=== PATIENT | female | born 1955 | race Caucasian/White ===

== ENCOUNTER 2020-10-08 21:31 | Inpatient (IN) | payer MEDICARE, SELFPAY ==
[2020-10-08] VITALS (12 sets, daily range): BP systolic 147–179; BP diastolic 85–98; PULSE 68–79; RESP 10–20; TEMP 35.9; O2SAT 96–100
--- NOTE | ~2020-10-08 | XR_ITS ---
EXAMINATION: XR hip RT min 2V DATE: 10/10/2020 10:22 INDICATION: Postoperative evaluation following bipolar type right hip arthroplasty.. TECHNIQUE: Anteroposterior and lateral views of the right hip were obtained. COMPARISON: 10/08/2020 FINDINGS: Interval resection of the fractured right femoral head neck and placement of a bipolar type right hip hemiarthroplasty which appears well seated in near anatomic alignment. Surgical clips and expected s ubcutaneous gas in the postoperative bed. No fractures identified. IMPRESSION: 1. Bipolar type right hip hemiarthroplasty, negative for postoperative purposes. Reviewed, dictated and finalized at location A. IMPRESSION: 1. Bipolar type right hip hemiarthroplasty, negative for postoperative purposes .
--- NOTE | ~2020-10-08 | XR_ITS ---
EXAMINATION: XR chest 1V DATE: 10/08/2020 22:18 INDICATION: Fall. TECHNIQUE: A single frontal view of the chest was obtained. COMPARISON: Chest 2 views 10/16/2014 FINDINGS: The chest demonstrates clear lungs without pneumonia, pleural effusion, or pneumothorax. Th e heart size is normal. There is an old fracture of distal left clavicle with nonunion. IMPRESSION: 1. No acute cardiopulmonary disease. Reviewed, dictated and finalized at location A.
--- NOTE | ~2020-10-08 | XR_ITS ---
EXAMINATION: XR hip RT 2V w AP pelvis DATE: 10/08/2020 22:18 INDICATION: Right hip injury. TECHNIQUE: An anteroposterior view of the pelvis and 2 views of right hip were obtained. COMPARISON: None. FINDINGS: There is a subcapital fracture of right femoral neck. The distal fracture fragment demonstr ates 16 mm shortening and external rotation. The hip joint spaces are well maintained. There is sever e lumbar spondylosis. [place] overlie the pelvis. IMPRESSION: 1. Subcapital fracture of right femoral neck. Reviewed, dictated and finalized at location A.
--- NOTE | 2020-10-08 22:48 | ECG_ITS ---
Measurements Intervals Lerna Rate: 86 P: 61 UT: 170 QRS: 71 QRSD: 98 T: 63 QT: 359 QTc: 430 Interpretive Statements SINUS RHYTHM INCOMPLETE RIGHT BUNDLE BRANCH BLOCK MINIMAL Q WAVES- INF/LAT LEADS PEAKED T WAVES- CONSIDER HYPERKALEMIA OR ISCHEMIA BASELINE ARTIFACT- I, II, III, AVR, AVL, AVF, V2-V6 ABNORMAL ECG Electronically Signed On 10-09-2020 6:35:03 CDT by Roberto Park D.O.
[2020-10-08] MEDS: MORPHINE SULFATE (*CRX) 4 MG/ML INJ IV PUSH (23:04)
[2020-10-08 23:09] LABS: Basophils Percent Auto 0.3 % (0.2-1.2); Eosinophils Percent Auto 0.3 % (0-4.4); Hematocrit 38.3 % (37.0-47.0); Hemoglobin 13.1 g/dL (12.0-15.0); Immature Granulocyte Absolute 0.05 K/mm3 (0.00-0.031); Immature Granulocyte Percent A 0.5 % (0-0.5); Lymphocytes Absolute Auto 0.79 K/mm3 (0.9-3.2); Lymphocytes Percent Auto 7.5 % (18.3-44.2); Mean Corpuscular HGB Conc 34.2 g/dl (32-36); Mean Corpuscular Hemoglobin 32.8 pg (26-34); Mean Corpuscular Volume 95.8 fl (80-100); Monocytes Absolute Auto 0.5 K/mm3 (0.1-0.6); Monocytes Percent Auto 4.5 % (2.6-8.5); Neutrophils Absolute Auto 9.1 K/mm3 (1.3-6.7); Neutrophils Percent Auto 86.9 % (45.5-73.1); Platelet Count Result 210 k/mm3 (150-375); Red Cell Distribution Width 11.8 % (11.5-14.5); White Blood Count 10.5 K/mm3 (4.5-10.0)
--- NOTE | 2020-10-08 23:14 | ED.LOWEXIN ---
HPI - Extremity Injury (Lower) General Chief Complaint: Extremity Injury, Lower Stated Complaint: skin tear and r hip pain Time Seen by Provider: 10/08/20 22:48 Source: patient, family, EMS and RN notes reviewed Mode of arrival: EMS Limitations: no limitations History of Present Illness HPI Narrative: Patient 65 years old white female came to the emergency room by ambulance from a bar because of a fall with right hip pain. Patient denies other injuries. Patient was trying to get out of the bar after drinking 7 beers, lost her balance and fell. No loss of consciousness, no other injuries. Patient denies any fever, chills, nausea, or vomiting Related Data Allergies Allergy/AdvReac Type Severity Reaction Status Date / Time ibuprofen Allergy Intermediate RASH Verified 09/13/17 10:58 SWELLING rofecoxib Allergy Unknown Verified 09/13/17 10:58 Review of Systems Review of Systems: CONSTITUTIONAL: Denies fever, chills, or sweats. EYES: Denies visual changes, redness, or discharge. ENT: Denies rhinorrhea, congestion, sore throat, or otalgia. CARDIOVASCULAR: Denies chest pain, palpitations, or edema. RESPIRATORY: Denies cough or dyspnea. GASTROINTESTINAL: Denies abdominal pain, nausea, vomiting, or diarrhea. GENITOURINARY: Denies dysuria or hematuria. SKIN: Denies rash or itching. MUSCULOSKELETAL: Denies back pain, joint pain, or myalgia. NEUROLOGIC: Denies headache, numbness, or weakness. PSYCHIATRIC: Denies anxiety or depression. Exam Narrative: General appearance: Well-developed, well-nourished Skin: Normal color Head: Normocephalic, nontraumatic Eyes: Clear conjunctiva ENT: Oropharynx normal, ears normal, nose normal Neck: Supple, nontender Chest and respiratory: Airway patent, no respiratory distress, no accessory muscle use Heart: Regular rate/rhythm Abdomen: Soft, nontender, no organomegaly, quiet bowel sounds Vascular: Normal peripheral pulses, normal capillary refill. Musculoskeletal: Severe diffuse tenderness right hip, deformity, Neurologic: Alert and oriented ?3, TELEPHONE STATION REPAIRER is normal as tested, no gross motor deficit Course Consultations Consultation #1: Dr. Torres Date: 10/08/20 Time: 23:17 Vital Signs Vital signs: Vital Signs Temperature 35.9 C L 10/08/20 21:33 Pulse Rate 70 10/08/20 21:33 Respiratory Rate 18 10/08/20 21:33 Blood Pressure 152/98 H 10/08/20 21:33 Pulse Oximetry 98 10/08/20 21:33 Temperature 35.9 C L 10/08/20 21:33 Pulse Rate 76 10/08/20 21:51 Respiratory Rate 20 10/08/20 21:51 Blood Pressure 152/98 H 10/08/20 21:33 Pulse Oximetry 100 10/08/20 21:51 MDM - Extremity Injury (Lower) MDM Narrative Medical decision making narrative: Patient presents with right hip pain after a fall. Work-up showed right subcapital fracture of the right femoral neck, Dr. Torres was consulted, labs, chest x-ray, EKG ordered for preop. Patient will be admitted to medical floor for possible hip replacement tomorrow morning. Differential Diagnosis Differential diagnosis: Likely fracture of femur and fracture of hip Lab Data Result diagrams: 10/08/20 22:56 10/08/20 22:56 Labs: Lab Results 10/08/20 10/08/20 10/08/20 Range/Units 22:56 22:56 22:56 WBC Pending RBC Pending Hgb Pending Hct Pending MCV Pending MCH Pending MCHC Pending RDW Pending Plt Count Pending MPV Pending Immature Gran % (Auto) Pending Neut % (Auto) Pending Lymph % (Auto) Pending [place] % (Auto) Pending Eos % (Auto) Pending Baso % (Auto) Pending Lymph # (Auto) Pending [place] # (Auto) Pending Eos # (Auto) Pending
[2020-10-08] MEDS: ONDANSETRON INJ 4 MG/2 ML VIAL IV PUSH (23:17)
[2020-10-08 23:19] LABS: Alanine Aminotransferase 50 U/L (4-35); Albumin Level 4.6 g/dL (3.5-5.1); Alkaline Phosphatase 87 U/L (38-126); Anion Gap 12 mmol/L (8-16); Aspartate Amino Transferase 54 U/L (14-36); Bilirubin,Total 0.4 mg/dL (0.2-1.3); Blood Urea Nitrogen 11 mg/dL (7-17); Calcium 9.3 mg/dL (8.4-10.2); Carbon Dioxide 26 mmol/L (22-30); Chloride 89 mmol/L (98-107); Estimated CRCL calculation 94 ml/min; Estimated Glomerular Filt Rate > 60; Glucose 103 mg/dL (65-110); INR 0.9; Prothrombin Time 11.8 Seconds (11.1-14.7); Sodium 127 mmol/L (137-145)
[2020-10-08 23:20] LABS: Partial Thromboplastin Time 29.3 SECONDS (22.3-36.8)
[2020-10-08 23:37] LABS: Ethanol 255 mg/dL (<10)
--- NOTE | 2020-10-08 23:41 | PM.IMHP ---
H&P: HPI History of Present Illness Date/Time: 10/08/20 23:41 Chief Complaint: fall and right hip fracture Narrative: Patient 65 years old white female came to the emergency room by ambulance from a bar because of a fall with right hip pain. she states she was drunk and she tripped and she fell down. Say hit her right hip and reports hurting in the area. Patient denies other injuries. There is No loss of consciousness, no other injuries. Patient denies any fever, chills, nausea, or vomiting. Evaluation was noted to have right hip fracture and is admitted for further evaluation and management. Orthopedic has been consulted from the ER Review of Systems Review of Systems: - CONSTITUTIONAL: Denies weight loss, fever and chills. - HEENT: Denies changes in vision and hearing - RESPIRATORY: Denies SOB and cough. - CV: Denies palpitations and CP. - GI: Denies abdominal pain, nausea, vomiting and diarrhea. - : Denies dysuria and urinary frequency. - MSK: Denies myalgia and reports right hip joint pain. - SKIN: Denies rash and pruritus. - NEUROLOGICAL: Denies headache and syncope. - PSYCHIATRIC: Denies recent changes in mood. Denies anxiety and depression. All systems reviewed & are unremarkable except as noted in HPI and below Constitutional: Constitutional: Reports fatigue and Reports weakness Neurologic: Reports weakness Endocrine: Endocrine: Reports fatigue PMFSH Social History Social History Smoking packs per day: 1 Smoking cigarettes per day: 20.0 Smoking status: Current every day smoker Tobacco type: cigarettes Alcohol intake: current Drinks per week: 49 Substance use: never Gender identity (if verbalized by the patient): Female Spiritual care concerns: No Meds Home Medications and Allergies Home Medications Medication Instructions Recorded Confirmed Type Unable to Obtain Home Medications 10/09/20 10/09/20 History Allergies Allergy/AdvReac Type Severity Reaction Status Date / Time ibuprofen Allergy Intermediate RASH Verified 09/13/17 10:58 SWELLING rofecoxib Allergy Unknown Verified 09/13/17 10:58 Vital Signs Vital Signs - 24 hr 10/08/20 21:33 10/08/20 21:42 10/08/20 21:46 Temperature 96.7 F L Pulse Rate 70 68 71 Respiratory Rate 18 17 14 Blood Pressure 152/98 H Pulse Oximetry 98 100 100 10/08/20 21:51 Temperature Pulse Rate 76 Respiratory Rate 20 Blood Pressure Pulse Oximetry 100 Exam Narrative: General appearance: Well-developed, well-nourished Skin: Normal color no rash Head: Normocephalic, nontraumatic Eyes: Clear conjunctiva bird ENT: Oropharynx normal, ears normal, nose normal Neck: Supple, nontender Chest and respiratory: Airway patent, no respiratory distress, no accessory muscle use Heart: Regular rate/rhythm Abdomen: Soft, nontender, no organomegaly, quiet bowel sounds Vascular: Normal peripheral pulses, normal capillary refill. Musculoskeletal: Severe diffuse tenderness right hip, deformity, Neurologic: Alert and oriented ?3, VISUAL DEVELOPER is normal as tested, no gross motor deficit H&P: Results Labs Labs: Short CBC 10/08/20 Range/Units 22:56 WBC 10.5 H (4.5-10.0) K/mm3 Hgb 13.1 (12.0-15.0) g/dL Hct 38.3 (37.0-47.0) % Plt Count 210 (150-375) k/mm3 BMP 10/08/20 22:56 Sodium 127 L Potassium 4.0 Chloride 89 L Carbon Dioxide 26 BUN 11 Creatinine 0.50 L Glucose 103 Calcium 9.3 Liver Function 10/08/20 Range/Units 22:56 Total Bilirubin 0.4 (0.2-1.3) mg/dL AST 54 H (14-36) U/L ALT 50 H (4-35) U/L Alkaline Phosphatase 87 (38-126)
[2020-10-09] VITALS (8 sets, daily range): BP systolic 115–150; BP diastolic 62–66; PULSE 68–82; RESP 10–18; TEMP 36.6–37; O2SAT 93–98; BMI 24.5
[2020-10-09] MEDS: SODIUM CHLORIDE 0.9% IV 1,000 ML 125 ML IV CONT (01:16)
[2020-10-09] MEDS: MORPHINE SULFATE (*CRX) 4 MG/ML INJ IV PUSH ×5 (01:18→23:13)
--- NOTE | 2020-10-09 01:36 | PC.NURSE ---
This patient, Maida López, was admitted to 2 Medical Room 260-01. Patient/family oriented to hospital policies and general routines including ID bracelet, bed and alarms, visiting hours, pain management, procedures, bathroom and other care routines, personal items, smoking policy, room service/diet, and visiting hours. Information on how to activate the Rapid Response Team has been discussed. Patient/Family are encouraged to report perceived risks to care and to ask questions if they do not understand what they are told or what they should do. Pt is NPO for surgery later today.
[2020-10-09 06:06] LABS: Basophils Percent Auto 0.2 % (0.2-1.2); Eosinophils Percent Auto 0.4 % (0-4.4); Hematocrit 33.6 % (37.0-47.0); Hemoglobin 12.1 g/dL (12.0-15.0); Immature Granulocyte Absolute 0.05 K/mm3 (0.00-0.031); Immature Granulocyte Percent A 0.6 % (0-0.5); Lymphocytes Absolute Auto 1.13 K/mm3 (0.9-3.2); Lymphocytes Percent Auto 13.7 % (18.3-44.2); Mean Corpuscular Hemoglobin 33.2 pg (26-34); Mean Corpuscular Volume 92.3 fl (80-100); Mean Platelet Volume 9.1 fl (7.4-10.4); Monocytes Absolute Auto 0.5 K/mm3 (0.1-0.6); Monocytes Percent Auto 6.2 % (2.6-8.5); Neutrophils Absolute Auto 6.5 K/mm3 (1.3-6.7); Neutrophils Percent Auto 78.9 % (45.5-73.1); Platelet Count Result 208 k/mm3 (150-375); Red Blood Count 3.64 M/mm3 (4.2-5.4); Red Cell Distribution Width 11.4 % (11.5-14.5); White Blood Count 8.2 K/mm3 (4.5-10.0)
[2020-10-09 06:08] LABS: Anion Gap 9 mmol/L (8-16); Blood Urea Nitrogen 8 mg/dL (7-17); Calcium 8.9 mg/dL (8.4-10.2); Carbon Dioxide 25 mmol/L (22-30); Chloride 95 mmol/L (98-107); Estimated CRCL calculation 94 ml/min; Estimated Glomerular Filt Rate > 60; Glucose 89 mg/dL (65-110); Potassium 3.9 mmol/L (3.4-5.0); Sodium 129 mmol/L (137-145)
--- NOTE | 2020-10-09 07:10 | PM.CNOR ---
Assessment and Plan Assessment and plan (1) Fracture of hip, right, closed: Qualifiers: Encounter type: initial encounter Qualified Code(s): S72.001A - Fracture of unspecified part of neck of right femur, initial encounter for closed fracture Code(s): S72.001A - Fracture of unspecified part of neck of right femur, initial encounter for closed fracture Status: Acute Assessment and Plan: New patient evaluation for chief complaint RT hip fx. History, physical exam and radiographs reviewed with the patient. Discussed the condition, nature, etiology and course of natural history with the patient. Treatment options including surgical and nonoperative treatment were reviewed. Risks and benefits of each as well as alternatives reviewed. The patient's questions were answered. Conservative treatment ice, DVT prophylaxis. Pt desires operative tx. Discussed nonoperative and operative treatment options with the patient. Risks and benefits of each as well as alternatives were reviewed. All of the patient's questions were answered. The risks of surgery reviewed including but not limited to: Neurovascular damage, wound complication, infection, blood clot, pulmonary embolus, stroke, myocardial infarction, and anesthetic risks up to and including . Continued pain and possible dysfunction were explained. Specific risks of the procedure including later recurrence of deformity. No guarantees were offered. If hardware used, discussed risk of failure/ breakage and possible need for removal. If complications occur, the patient understands the need for further treatment, possible further surgery. Patient verbalizes understanding and wishes to proceed. PLAN: RT hip hemiarthroplasty Hyponatremia with no improvement overnight. Plan surgery when medically cleared. (2) Hyponatremia: Code(s): E87.1 - Hypo-osmolality and hyponatremia Status: Acute History of Present Illness HPI Consult date: 10/09/20 Requesting physician: Devonte Mejia MD Chief complaint: Right Hip Fracture, Hyponatremia Narrative: 65 yo woman, EtOH, fell lest night on right hip. RT hip fx. Pain rt hip. No prior problems. Review of Systems Constitutional: Constitutional: Denies fever(s) Eyes: Eyes: Denies blurry vision ENT: Reports Normal hearing present Cardiovascular: Cardiovascular: Denies chest pain and Denies dyspnea Respiratory: Respiratory: Denies dyspnea and Denies wheezing Gastrointestinal: Gastrointestinal: Denies abdominal pain Genitourinary: Genitourinary: Denies urinary urgency Musculoskeletal: Musculoskeletal: Reports as per HPI and Denies numbness Integumentary/Breasts: Skin/Breast: Denies changing lesions and Denies sores Neurologic: Reports Normal hearing present, Denies behavioral changes, Denies confusion, Denies numbness and Denies convulsions Psychiatric: Psychiatric: Denies behavioral changes, Denies confusion and Denies hallucinations Endocrine: Endocrine: Denies heat intolerance Hematologic/Lymphatic: Hematologic/Lymphatic: Denies easy bleeding Allergic/Immunologic: Allergic/Immunologic: Denies wheezing PMFSH Social History Social History Smoking packs per day: 1 Smoking cigarettes per day: 20.0 Smoking status: Current every day smoker Tobacco type: cigarettes Alcohol intake: current Drinks per week: 49 Substance use: never Gender identity (if verbalized by the patient): Female Spiritual care concerns: No Meds Home Medications and Allergies Home Medications Medication Instructions Recorded Confirmed Type Unable to Obtain Home Medications 10/09/20 10/09/20 History Allergies Allergy/AdvReac Type Severity Reaction Status Date / Time ibuprofen Allergy Intermediate RASH Verified 09/13/17 10:58 SWELLING rofecoxib Allergy Unknown Verified 09/13/17 10:58 Vital Signs Vital Signs - 24 hr 10/08/20
--- NOTE | 2020-10-09 13:45 | PM.IMPN ---
Progress Note: A&P Assessment and Plan (1) Fracture of hip, right, closed: Qualifiers: Encounter type: initial encounter Qualified Code(s): S72.001A - Fracture of unspecified part of neck of right femur, initial encounter for closed fracture Code(s): S72.001A - Fracture of unspecified part of neck of right femur, initial encounter for closed fracture Status: Acute Assessment and Plan: - plan for right hip arthroplasty tomorrow with Dr. Torres - NPO midnight for surgery tomorrow - pain control: Morphine - Nausea and Zofran (2) Hyponatremia: Code(s): E87.1 - Hypo-osmolality and hyponatremia Status: Acute Assessment and Plan: -sodium 129 likely secondary to tea and toast syndrome with decreased p.o. salt intake and polydipsia. Also may be related to alcoholism, however patient states she eats all her meals and has no problems with alcoholism. -patient appears euvolemic hyponatremia. -fluid restriction sodium -continue IV fluids normal saline -patient otherwise is stable for surgery tomorrow. no chest pain or other medical history of concern (3) Alcoholism: Code(s): F10.20 - Alcohol dependence, uncomplicated Status: Acute Assessment and Plan: -will watch for withdrawals, CIWA protocol, patient drinks 6 beers daily Additional Plan Diet: Regular, NPO midnight for surgery tomorrow Code status: Full code Disposition: Pending surgery Social: updated bedside Time Spent With Patient Time with patient: 15 - 25 minutes Subjective Date/time seen: 10/09/20 13:45 Patient examined with bedside. labs are on low side sodium 129, creatinine 0.5. patient has been drinking plenty of water and decreased salt intake, likely polydipsia etiology of hyponatremia. plan for right hip arthroplasty. patient NPO midnight for surgery tomorrow. Of note patient had bone density scan which was consistent with osteoporosis completed last week. She is on vitamin-D and calcium supplements. Patient endorses right hip pain otherwise denies fevers, chills, nausea, vomiting, diarrhea, chest pain, abdominal pain. Review of Systems Review of Systems: All systems reviewed & are unremarkable except as noted in HPI and below Exam Narrative: - GENERAL: No acute distress. Well-nourished. Pleasant woman appears stated age - EYES: EOMI. Anicteric. - HENT: Moist mucous membranes. - LUNGS: Clear to auscultation bilaterally, no wheezing, rhonchi, or rales. - CARDIOVASCULAR: Regular rate and rhythm. No murmur. No JVD. - ABDOMEN: Soft, non-tender and non-distended. No palpable masses. - EXTREMITIES: No edema. Peripheral pulses 2+. right lower extremity tenderness with any movement, ice packs on right hip - NEUROLOGIC: No focal neurological deficits. CN II-XII grossly intact. - PSYCHIATRIC: Awake, Alert and oriented x 3. Appropriate mood and affect. - SKIN: No rashes or lesions. Warm. - LYMPH: No cervical lymphadenopathy. Objective Data Vital Signs Vital Signs: Vital Signs - 24 hr 10/08/20 21:33 10/08/20 21:42 10/08/20 21:46 Temperature 35.9 C L Pulse Rate 70 68 71 Respiratory Rate 18 17 14 Blood Pressure 152/98 H Pulse Oximetry 98 100 100 10/08/20 21:51 10/08/20 22:18 10/08/20 22:30 Temperature Pulse Rate 76 71 72 Respiratory Rate 20 11 L 13 Blood Pressure Pulse Oximetry 100 97 10/08/20 22:53 10/08/20 22:56 10/08/20 23:11 Temperature Pulse Rate 79 77 76 Respiratory Rate 19 13 10 L Blood Pressure 179/98 H Pulse Oximetry 97 98 10/08/20 23:15 10/08/20 23:16 10/08/20 23:45 Temperature Pulse Rate 75 79 78 Respiratory Rate 12 16 13 Blood Pressure 147/85 H Pulse Oximetry 98 96 10/09/20 00:06 10/09/20 00:15 10/09/20 00:16 Temperature Pulse Rate 80 77 77 Respiratory Rate 14 13 10 L Blood Pressure 125/64 Pulse Oximetry 94 10/09/20 00:33 10/09/20 02:04 10/09/20 06:00 Temperature 36.6 C 37.0 C Pulse Rate 74 68 7
[2020-10-09] MEDS: ONDANSETRON INJ 4 MG/2 ML VIAL IV PUSH (14:47)
[2020-10-09] MEDS: SODIUM CHLORIDE 0.9% IV 1,000 ML 100 ML IV CONT (18:35)
[2020-10-10] VITALS (16 sets, daily range): BP systolic 134–170; BP diastolic 52–80; PULSE 67–91; RESP 12–20; TEMP 36.2–38.1; O2SAT 90–100
[2020-10-10] MEDS: MORPHINE SULFATE (*CRX) 4 MG/ML INJ IV PUSH ×2 (01:57→05:16)
[2020-10-10] MEDS: SODIUM CHLORIDE 0.9% IV 1,000 ML 100 ML IV CONT (05:21)
--- NOTE | 2020-10-10 06:20 | PC.NURSE ---
TO OR PER BED, WITH PT
--- NOTE | 2020-10-10 06:39 | WPDHPUPDATE1 ---
History and Physical Update Update Date/Time: 10/10/20 06:39 History and Physical has been reviewed, including an updated exam of the patient. There are NO changes in the patient's condition. Risks, benefits, and alternatives have been discussed and questions answered. Patient agrees to proceed with procedure.
[2020-10-10] MEDS: LACTATED RINGERS 1,000 ML 30 ML IV CONT ×2 (06:51→09:59)
[2020-10-10] MEDS: TRANEXAMIC ACID 1,000MG/ISO100 1,000 MG/100 ML BAG 200 MG IVPB (06:52)
--- NOTE | 2020-10-10 06:58 | WPDANESEPPF ---
Anes - Initial Pre Proc Eval Procedure: Operation Date: 10/10/20 07:30 Proposed Procedures p Right Bipolar - Will Torres MD Date/Time: 10/10/20 06:58 Surgeon: Lion Reyes MD Pre Op Diagnosis: Right Hip Fracture, Hyponatremia Patient Data Age: 65 Gender: F Height: 1.73 m Weight: 73.2 kg Last Vital Signs Temp 38.1 C H 10/10/20 06:30 Pulse 80 10/10/20 06:30 Resp 20 10/10/20 06:30 BP 165/77 H 10/10/20 06:30 Pulse Ox 97 10/10/20 06:30 Allergies Allergy/AdvReac Type Severity Reaction Status Date / Time ibuprofen Allergy Intermediate RASH Verified 09/13/17 10:58 SWELLING latex Allergy Intermediate Rash Verified 10/10/20 06:57 rofecoxib Allergy Unknown Unknown Verified 10/10/20 06:57 Home Medications Medication Instructions Recorded Confirmed Type Unable to Obtain Home Medications 10/09/20 10/09/20 History Laboratory Tests 10/09/20 09:40 Blood Type A Positive Antibody Screen Negative Patient hx anesthesia problems: none Family hx anesthesia problems: none PMFSH Past Medical History Medical History (Updated 10/10/20 @ 06:58 by Holland Polo MD) Hyperlipidemia PVD (peripheral vascular disease) Surgical History Surgical History (Updated 10/10/20 @ 06:59 by Holland Polo MD) H/O carotid endarterectomy Social History Social History Smoking packs per day: 1 Smoking cigarettes per day: 20.0 Smoking status: Current every day smoker Tobacco type: cigarettes Alcohol intake: current Drinks per week: 49 Substance use: never Gender identity (if verbalized by the patient): Female Spiritual care concerns: No Anes - Eval Final PreProcedure Day of Procedure 10/10/20 06:58 Patient weight: normal Heart: regular rate and rhythm Lungs: clear to auscultation Airway: Mallampati scale class II Neurological: alert and oriented Last oral intake: >/= 8 hours ASA classification: III Emergent: no Anesthetic plan: proceed Anesthesia type and monitoring: general ETT and standard monitoring Informed Consent: The patient's anesthetic plan and its attendant risks and benefits were discussed with the patient/family/POA. Questions were solicited and answers provided to the satisfaction of the patient/family/POA.
--- NOTE | 2020-10-10 06:58 | SUR.PREOP ---
PT UNABLE TO TOLERATE SHAVE OF RT HIP DUE TO INTERMITTENT SPASMS.
--- NOTE | 2020-10-10 07:13 | SUR.PREOP ---
DR BARRON ORDERED STAT LABS
--- NOTE | 2020-10-10 07:35 | SUR.PREOP ---
0700; PT STATES SHE HAS A LATEX ALLERGY, CAUSES RASH. NOT IN ALLERGY LIST. ADDED TO ALLERGY LIST. HVAC TECHJOSEY RN NOTIFIED.
[2020-10-10 07:36] LABS: Basophils Percent Auto 0.2 % (0.2-1.2); Eosinophils Percent Auto 0.2 % (0-4.4); Hematocrit 35.1 % (37.0-47.0); Hemoglobin 12.3 g/dL (12.0-15.0); Immature Granulocyte Absolute 0.03 K/mm3 (0.00-0.031); Immature Granulocyte Percent A 0.3 % (0-0.5); Lymphocytes Absolute Auto 0.61 K/mm3 (0.9-3.2); Lymphocytes Percent Auto 6.3 % (18.3-44.2); Mean Corpuscular Hemoglobin 33.1 pg (26-34); Mean Corpuscular Volume 94.4 fl (80-100); Mean Platelet Volume 8.6 fl (7.4-10.4); Monocytes Absolute Auto 0.6 K/mm3 (0.1-0.6); Monocytes Percent Auto 6.5 % (2.6-8.5); Neutrophils Absolute Auto 8.4 K/mm3 (1.3-6.7); Neutrophils Percent Auto 86.5 % (45.5-73.1); Platelet Count Result 172 k/mm3 (150-375); Red Blood Count 3.72 M/mm3 (4.2-5.4); Red Cell Distribution Width 11.8 % (11.5-14.5); White Blood Count 9.7 K/mm3 (4.5-10.0)
[2020-10-10 07:49] LABS: Anion Gap 4 mmol/L (8-16); Blood Urea Nitrogen 8 mg/dL (7-17); Carbon Dioxide 28 mmol/L (22-30); Chloride 97 mmol/L (98-107); Estimated CRCL calculation 94 ml/min; Estimated Glomerular Filt Rate > 60; Glucose 103 mg/dL (65-110); Sodium 129 mmol/L (137-145)
[2020-10-10] MEDS: ceFAZolin 2 GM/D5W 50 ML 2 GM/50 ML BAG IVPB (07:51)
--- NOTE | 2020-10-10 07:53 | SUR.PREOP ---
0730; PT AND SPOUSE NOTIFIED OF DELAY FOR LATEX ALLERGY. 0745; REPORT GIVEN TO ANTONIO ZAMUDIO, PT HAS LOW GRADE TEMP. 100'S
[2020-10-10] MEDS: BUPIVACAINE/EPINEPHRINE 0.5% 30 ML VIAL INFILTRATE (08:22)
--- NOTE | 2020-10-10 09:30 | SUR.OPER ---
Patient stated she has Latex Allergy in pre op. Patient stated only with bandaids left on she gets rash. Denies any adverse reaction to latex gloves, elastic in underwear, bananas, kiwi, or avacado. Dr Torres aware. Patient arrived to pre op with latex adame in. No adverse reactions noted Dr Torres aware. As per Dr Torres leave adame in and no need to change to silicone. Scar Hernandez Rn. Pre op nurse Mara aware.
--- NOTE | 2020-10-10 09:40 | W.PM.PROC2 ---
Procedure Note - Detailed Date of Procedure 10/10/20 Pre-op Diagnosis Right Hip Fracture, Hyponatremia Post-op Diagnosis same Procedure Performed Right hip bipolar hemiarthroplasty Surgeon Will Torres MD Parliamentary Archivist 1st starch treating assistant Anesthesia general Indications 65-year-old woman who fell on the right side sustained a right femoral neck fracture with displacement. Patient desires operative treatment. Indicated for hemiarthroplasty. Description of Procedure WHAT WAS DONE: After informed consent was given, the operative extremity was marked in the preoperative holding area. The patient received intravenous antibiotics. Patient was brought to the operating room where they underwent a general anesthetic. Positioned in the lateral decubitus position nonop side down and the operative hip up. The right hip was then prepped and draped in the usual sterile surgical fashion using ChloraPrep skin solution. Time-out performed confirming the patient, side of the surgery, and the plan. A longitudinal incision was then made over the lateral side of the hip with the 10-blade knife. Hemostasis was controlled with electrocautery. Dissection was carried down through the fascia, which was incised in line with the skin incision. Subfascial retractor was placed. The abductor musculature was then elevated off the lateral side of the femur leaving a cuff of tissue for repair. The short abductor musculature was then elevated off the capsule and retention sutures were placed at the corner. The capsule was then incised in line with the femoral neck and T'd at the base. This allowed exposure of the fracture. The fracture hematoma was evacuated. Proximal femoral cutting guide was used to make a femoral neck cut at 2 cm above the lesser trochanter. This bone was removed with a rongeur. We then removed the head with a corkscrew. This was measured on the back table. Trialing of the acetabulum was done and a size 50 mm had excellent fit. The acetabulum was thoroughly irrigated and suctioned. Part of the fovea was removed with cautery. The rest of the acetabulum was inspected and noted to be with minimal degenerative changes. The proximal femur was then prepared. A posterior femoral retractor elevator was placed and a box cutting chisel was used to enter the femoral canal. We then used the canal finder. Broaching was then performed sequentially in 1 mm increments from a size 4 up to a size 11. This was noted to have excellent fit. We then trialed the hip. Excellent fit, stability with external and internal rotation at full extension and flexion of his hip and leg shuck were noted. The trial components were then removed. There was thorough irrigation with antibiotic solution of the proximal femur, acetabulum, and the wound. The femoral stem was then impacted into place. Good fit was noted. Trialing was once again performed and a - stem with a mm acetabular cup had excellent stability and range of motion. The trial components were removed and the 28 mm head acetabular cup were then impacted onto the femoral stem. The hip was then reduced once again, taken through full range of motion and noted to be stable with the leg extended in full external and internal rotation with the hip flexed to 90 degrees with internal and external rotation. There was equal leg length noted. Wound was thoroughly irrigated with antibiotic solution. The capsule was repaired with #1 Vicryl interrupted suture. The abductors were repaired back with #1 Vicryl interrupted suture. The fascia was repaired with 0 Vicryl running suture. Subcutaneous tissue was repaired in layers with 2-0 Vicryl interrupted suture. Skin repaired with marva. A sterile dressing was placed. A hip abduction pillow was applied. The patient was then returned supine, extubated after awakening from anesthesia, and taken to the recovery room in stable condition. All sponge and instrument counts were correct at t
--- NOTE | 2020-10-10 11:12 | PC.NURSE ---
Returned from OR per bed. Report received from Gabbi DAVILA .
[2020-10-10] MEDS: NICOTINE (*PBKC) 21 MG PATCH 1 PATCH TRANSDERM (13:18)
--- NOTE | 2020-10-10 14:05 | PM.IMPN ---
Progress Note: A&P Assessment and Plan (1) Alcoholism: Code(s): F10.20 - Alcohol dependence, uncomplicated Status: Acute Assessment and Plan: Continue CIWA, patient does not appear to be going through withdrawals (2) Fracture of hip, right, closed: Qualifiers: Encounter type: initial encounter Qualified Code(s): S72.001A - Fracture of unspecified part of neck of right femur, initial encounter for closed fracture Code(s): S72.001A - Fracture of unspecified part of neck of right femur, initial encounter for closed fracture Status: Acute Assessment and Plan: Right hip replacement with Dr. Torres today, Which went well Pain control: morphine, Pierpont, Tylenol. nerve block with bupivacaine Bowel regimen: Colace Nausea: Zofran Valium for muscle spasms (3) Hyponatremia: Code(s): E87.1 - Hypo-osmolality and hyponatremia Status: Acute Assessment and Plan: sodium about the same at 129, patient encouraged to increase her salt intake. She appears to be euvolemic. She is asymptomatic, patient follow-up PCP. (4) Nicotine dependence: Code(s): F17.200 - Nicotine dependence, unspecified, uncomplicated Status: Acute Assessment and Plan: history of smoking, nicotine dependence. nicotine patch prescribed Additional Plan diet: Regular DVT prophylaxis: fondaparinux GI prophylaxis: Pepcid Code status: Full code Disposition: pending PT OT evaluation Time Spent With Patient Time with patient: 15 - 25 minutes Subjective Date/time seen: 10/10/20 14:05 patient seen examined after right hip replacement Dr. Torres. she had no problems overnight and tolerated the procedure well. Patient will have physical therapy to help with disposition. Patient denies fever, chills, nausea, vomiting, diarrhea, chest pain, abdominal pain. She states her right hip is not having any pain now may be from nerve block. patient requesting nicotine patch which she can have. Review of Systems Review of Systems: All systems reviewed & are unremarkable except as noted in HPI and below Exam Narrative: - GENERAL: No acute distress. Well-nourished. Pleasant woman appears stated age - EYES: EOMI. Anicteric. - HENT: Moist mucous membranes. - LUNGS: Clear to auscultation bilaterally, no wheezing, rhonchi, or rales. - CARDIOVASCULAR: Regular rate and rhythm. No murmur. No JVD. - ABDOMEN: Soft, non-tender and non-distended. No palpable masses. - EXTREMITIES: No edema. Peripheral pulses 2+. Right lower extremity hip replacement with dressing, no bruising or erythema. - NEUROLOGIC: No focal neurological deficits. CN II-XII grossly intact. - PSYCHIATRIC: Awake, Alert and oriented x 3. Appropriate mood and affect. - SKIN: No rashes or lesions. Warm. - LYMPH: No cervical lymphadenopathy. Objective Data Vital Signs Vital Signs: Vital Signs - 24 hr 10/09/20 14:31 10/09/20 20:00 10/10/20 05:25 Temperature 36.7 C 36.8 C Pulse Rate 82 79 Respiratory Rate 14 16 Blood Pressure 150/66 H 144/65 H Pulse Oximetry 93 95 90 10/10/20 06:00 10/10/20 06:30 10/10/20 09:59 Temperature 36.9 C 38.1 C H 36.2 C L Pulse Rate 91 80 80 Respiratory Rate 18 20 20 Blood Pressure 158/74 H 165/77 H 134/70 Pulse Oximetry 93 97 100 10/10/20 10:10 10/10/20 10:25 10/10/20 10:40 Temperature Pulse Rate 76 77 75 Respiratory Rate 14 14 12 Blood Pressure 159/73 H 170/80 H 156/77 H Pulse Oximetry 98 92 95 10/10/20 10:55 10/10/20 11:05 10/10/20 11:23 Temperature 36.4 C L Pulse Rate 78 71 77 Respiratory Rate 20 12 16 Blood Pressure 146/79 H 146/79 H 163/79 H Pulse Oximetry 95 94 95 10/10/20 11:38 10/10/20 12:09 Temperature 36.4 C 36.3 C L Pulse Rate 81 67 Respiratory Rate 14 14 Blood Pressure 135/65 150/72 H Pulse Oximetry 97 98 Intake/Output Intake/Output: Intake & Output 10/07/20 10/08/20 10/09/20 10/10/20 23:59 23:59 23:59 23:59 Intake Total 1200 1250
[2020-10-10] MEDS: DOCUSATE SODIUM 100 MG CAPSULE PO (16:08)
[2020-10-10] MEDS: FAMOTIDINE 20 MG TABLET PO (21:10)
[2020-10-11] VITALS (8 sets, daily range): BP systolic 115–154; BP diastolic 58–74; PULSE 78–90; RESP 18–20; TEMP 36.6–38.6; O2SAT 93–98
[2020-10-11 05:44] LABS: Basophils Percent Auto 0.2 % (0.2-1.2); Eosinophils Percent Auto 0.2 % (0-4.4); Hematocrit 32.5 % (37.0-47.0); Hemoglobin 11.3 g/dL (12.0-15.0); Immature Granulocyte Absolute 0.05 K/mm3 (0.00-0.031); Immature Granulocyte Percent A 0.5 % (0-0.5); Lymphocytes Absolute Auto 0.64 K/mm3 (0.9-3.2); Lymphocytes Percent Auto 5.8 % (18.3-44.2); Mean Corpuscular HGB Conc 34.8 g/dl (32-36); Mean Corpuscular Hemoglobin 32.9 pg (26-34); Mean Corpuscular Volume 94.8 fl (80-100); Mean Platelet Volume 9.3 fl (7.4-10.4); Monocytes Percent Auto 9.4 % (2.6-8.5); Neutrophils Absolute Auto 9.3 K/mm3 (1.3-6.7); Neutrophils Percent Auto 83.9 % (45.5-73.1); Platelet Count Result 176 k/mm3 (150-375); Red Blood Count 3.43 M/mm3 (4.2-5.4); Red Cell Distribution Width 11.7 % (11.5-14.5); White Blood Count 11.1 K/mm3 (4.5-10.0)
[2020-10-11 05:55] LABS: Anion Gap 6 mmol/L (8-16); Blood Urea Nitrogen 7 mg/dL (7-17); Calcium 9.1 mg/dL (8.4-10.2); Carbon Dioxide 29 mmol/L (22-30); Chloride 88 mmol/L (98-107); Estimated CRCL calculation 94 ml/min; Estimated Glomerular Filt Rate > 60; Glucose 120 mg/dL (65-110); Potassium 3.8 mmol/L (3.4-5.0); Sodium 123 mmol/L (137-145)
--- NOTE | 2020-10-11 07:27 | PM.PNORT ---
Progress Note: A&P Assessment and Plan (1) Fracture of hip, right, closed: Qualifiers: Encounter type: subsequent encounter Fracture healing: with routine healing Qualified Code(s): S72.001D - Fracture of unspecified part of neck of right femur, subsequent encounter for closed fracture with routine healing Code(s): S72.001A - Fracture of unspecified part of neck of right femur, initial encounter for closed fracture Status: Acute Assessment and Plan: Postoperative day 1 right hip bipolar. Patient up to chair. Pain under control. DVT prophylaxis. PT/OT with weight-bearing as tolerated. Hyponatremia. Patient prefers home with home health if clears therapy. Subjective Subjective Date/Time Seen: 10/11/20 07:27 Post Op day: 1 Principal diagnosis: Right hip fracture Interval history: patient awake and alert. Up to chair. Mild complaints of right hip pain. Denies numbness or tingling. Exam Const: General: healthy appearing; No in distress or confusion Orientation/consciousness: patient oriented x3 and No confusion HENMT: Head: normal to inspection, normocephalic and atraumatic Eyes: Conjunctivae: conjunctivae normal Sclera: sclerae normal Resp: Effort & Inspection: normal respiratory effort and no audible wheezes Neuro: General: patient oriented x3 and No confusion Extrem: Right lower extremity: hip/thigh Details: other ( dressing in place. Mild swelling. Muscle soft.), lower leg Details: normal to inspection and other ( Negative Homans sign); no tenderness and foot Details: toes with normal ROM, vascular exam Details: dorsalis pedis pulse present and normal capillary refill, tendon exam Details: active flexion normal and active extension normal and motor-sensory exam Details: light-touch normal Location: in all toes Psych: Affect: normal affect Objective Data Vital Signs Vital Signs: Vital Signs - 24 hr 10/10/20 09:59 10/10/20 10:10 10/10/20 10:25 Temperature 97.2 F L Pulse Rate 80 76 77 Respiratory Rate 20 14 14 Blood Pressure 134/70 159/73 H 170/80 H Pulse Oximetry 100 98 92 10/10/20 10:40 10/10/20 10:55 10/10/20 11:05 Temperature Pulse Rate 75 78 71 Respiratory Rate 12 20 12 Blood Pressure 156/77 H 146/79 H 146/79 H Pulse Oximetry 95 95 94 10/10/20 11:23 10/10/20 11:38 10/10/20 12:09 Temperature 97.5 F L 97.6 F 97.4 F L Pulse Rate 77 81 67 Respiratory Rate 16 14 14 Blood Pressure 163/79 H 135/65 150/72 H Pulse Oximetry 95 97 98 10/10/20 13:21 10/10/20 17:20 10/10/20 20:00 Temperature 97.5 F L 98.7 F Pulse Rate 77 87 89 Respiratory Rate 16 20 Blood Pressure 142/65 H 152/52 H 151/72 H Pulse Oximetry 94 95 94 10/10/20 20:33 10/11/20 00:00 10/11/20 00:16 Temperature 99.1 F 98.9 F Pulse Rate 89 83 Respiratory Rate 20 20 Blood Pressure 151/72 H 148/63 H 148/63 H Pulse Oximetry 94 93 10/11/20 04:55 Temperature 98.6 F Pulse Rate 85 Respiratory Rate 18 Blood Pressure 146/58 H Pulse Oximetry 95 Intake/Output Intake/Output: Intake & Output 10/08/20 10/09/20 10/10/20 10/11/20 23:59 23:59 23:59 23:59 Intake Total 1200 2460 240 Output Total 1575 2250 400 Balance -375 210 -160 Meds/Results Medications: Active Medications Generic Name Dose Route Start Last Admin Trade Name Freq PRN Reason Stop Dose Admin Acetaminophen 650 mg 10/10/20 11:10 Acetaminophen 325 Mg Tablet PO Q6H PRN Mild Pain (1-3) or Fever Hydrocodone Bitart/Acetaminophen 1 tab 10/10/20 11:10 Hydrocodone/Acetaminophen (*Crx) 5-325 Mg Tablet PO Q3H PRN Pain Rated 4-6 Al Hydrox/Mg Hydrox/Simethicone 30 ml 10/10/20 11:10 Mag Hydrox/Al Hydrox/Simeth 30 Ml Udc PO Q6H PRN Indigestion Diazepam 5 mg 10/10/20 11:10 Diazepam (*Crx) 5 Mg Tablet PO Q8H PRN Muscle Spasm Docusate Sodium 100 mg 10/10/20 17:00 10/10/20 16:08 Docusate Sodium 100 Mg Capsule PO 100 mg BID [facility] Administrati
[2020-10-11] MEDS: FAMOTIDINE 20 MG TABLET PO ×2 (07:51→21:08)
[2020-10-11] MEDS: DOCUSATE SODIUM 100 MG CAPSULE PO ×2 (07:51→16:50)
[2020-10-11] MEDS: FONDAPARINUX SODIUM 2.5 MG/0.5 ML SYRINGE SUB-Q (07:52)
[2020-10-11] MEDS: NICOTINE (*PBKC) 21 MG PATCH 1 PATCH TRANSDERM (07:52)
[2020-10-11] MEDS: ACETAMINOPHEN 325 MG TABLET 650 MG PO (09:23)
--- NOTE | 2020-10-11 09:50 | PM.IMPN ---
Progress Note: A&P Assessment and Plan (1) Hyponatremia: Code(s): E87.1 - Hypo-osmolality and hyponatremia Status: Acute Assessment and Plan: sodium dropped to 123, likely polydipsia with p.o. intake of 1800 cc, adding fluid restriction. Does not produce symptomatic. (2) Nicotine dependence: Code(s): F17.200 - Nicotine dependence, unspecified, uncomplicated Status: Acute Assessment and Plan: nicotine patch as needed. chronic smoker (3) Alcoholism: Code(s): F10.20 - Alcohol dependence, uncomplicated Status: Acute Assessment and Plan: CIWA has been low (4) Fracture of hip, right, closed: Qualifiers: Encounter type: subsequent encounter Fracture healing: with routine healing Qualified Code(s): S72.001D - Fracture of unspecified part of neck of right femur, subsequent encounter for closed fracture with routine healing Code(s): S72.001A - Fracture of unspecified part of neck of right femur, initial encounter for closed fracture Status: Acute Assessment and Plan: postop day 1. Right hip replacement Dr. Torres pain control, DVT prophylaxis, antibiotics as per orthopedic surgeon Additional Plan diet: Regular with fluid restriction 1200cc DVT prophylaxis: fondaparinux GI prophylaxis: Pepcid Code status: Full code Disposition: pending PT OT evaluation Time Spent With Patient Time with patient: 25 - 35 minutes Subjective Date/time seen: 10/11/20 09:50 Patient examined she feels good with no problems no complaints. Patient is status post right hip replacement by Dr. Torres. plan for PT evaluation today. Her sodium has dropped to 123 but she is asymptomatic. It appears her fluid intake was 1800 mL, I will add a fluid restriction 1200cc. Etiology of her hyponatremia likely polydipsia. Patient denies fever, chills, nausea, vomiting, diarrhea, chest pain, abdominal pain. Review of Systems Review of Systems: All systems reviewed & are unremarkable except as noted in HPI and below Exam Narrative: - GENERAL: No acute distress. Well-nourished. sitting in chair comfortably - EYES: EOMI. Anicteric. - HENT: Moist mucous membranes. - LUNGS: Clear to auscultation bilaterally, no wheezing, rhonchi, or rales. - CARDIOVASCULAR: Regular rate and rhythm. No murmur. No JVD. - ABDOMEN: Soft, non-tender and non-distended. No palpable masses. - EXTREMITIES: No edema. Peripheral pulses 2+. Right lower extremity hip replacement with dressing, no bruising or erythema. - NEUROLOGIC: No focal neurological deficits. CN II-XII grossly intact. - PSYCHIATRIC: Awake, Alert and oriented x 3. Appropriate mood and affect. - SKIN: No rashes or lesions. Warm. - LYMPH: No cervical lymphadenopathy. Objective Data Vital Signs Vital Signs: Vital Signs - 24 hr 10/10/20 09:59 10/10/20 10:10 10/10/20 10:25 Temperature 36.2 C L Pulse Rate 80 76 77 Respiratory Rate 20 14 14 Blood Pressure 134/70 159/73 H 170/80 H Pulse Oximetry 100 98 92 10/10/20 10:40 10/10/20 10:55 10/10/20 11:05 Temperature Pulse Rate 75 78 71 Respiratory Rate 12 20 12 Blood Pressure 156/77 H 146/79 H 146/79 H Pulse Oximetry 95 95 94 10/10/20 11:23 10/10/20 11:38 10/10/20 12:09 Temperature 36.4 C L 36.4 C 36.3 C L Pulse Rate 77 81 67 Respiratory Rate 16 14 14 Blood Pressure 163/79 H 135/65 150/72 H Pulse Oximetry 95 97 98 10/10/20 13:21 10/10/20 17:20 10/10/20 20:00 Temperature 36.4 C L 37.1 C Pulse Rate 77 87 89 Respiratory Rate 16 20 Blood Pressure 142/65 H 152/52 H 151/72 H Pulse Oximetry 94 95 94 10/10/20 20:33 10/11/20 00:00 10/11/20 00:16 Temperature 37.3 C 37.2 C Pulse Rate 89 83 Respiratory Rate 20 20 Blood Pressure 151/72 H 148/63 H 148/63 H Pulse Oximetry 94 93 10/11/20 04:55 10/11/20 08:55 10/11/20 09:23 Temperature 37.0 C 38.6 C H 38.3 C H Pulse Rate 85 78 Respiratory Rate 18 18 Blood Pressure 146/58 H 136/74 Pulse Oximetry
[2020-10-11] MEDS: HYDROcodone/acetaminophen (*CRX) 5-325 MG TABLET 1 TAB PO (11:03)
[2020-10-11] MEDS: MAG HYDROX/AL HYDROX/SIMETH 30 ML UDC PO (23:59)
[2020-10-12] VITALS: BP 154/71
[2020-10-12] MEDS: HYDROcodone/acetaminophen (*CRX) 5-325 MG TABLET 1 TAB PO (02:49)
[2020-10-12 04:00] VITALS: BP 125/75
[2020-10-12 05:41] VITALS: BP 125/75; PULSE 83; RESP 20; TEMP 36.4; O2SAT 95
[2020-10-12] MEDS: FONDAPARINUX SODIUM 2.5 MG/0.5 ML SYRINGE SUB-Q (09:09)
[2020-10-12] MEDS: DOCUSATE SODIUM 100 MG CAPSULE PO (09:12)
[2020-10-12] MEDS: FAMOTIDINE 20 MG TABLET PO (09:12)
[2020-10-12] MEDS: NICOTINE (*PBKC) 21 MG PATCH 1 PATCH TRANSDERM (09:12)
--- NOTE | 2020-10-12 09:32 | PM.PNORT ---
Progress Note: A&P Assessment and Plan (1) Fracture of hip, right, closed: Qualifiers: Encounter type: subsequent encounter Fracture healing: with routine healing Qualified Code(s): S72.001D - Fracture of unspecified part of neck of right femur, subsequent encounter for closed fracture with routine healing Code(s): S72.001A - Fracture of unspecified part of neck of right femur, initial encounter for closed fracture Status: Acute Assessment and Plan: POD #2: Right Hip Bipolar. Continue PT/OT. WBAT. Walker. FALL RISK. DVT prophylaxis. Transition to oral aspirin upon discharge. Hyponatremia. Defer to medicine team. Mepitel dressing in place. Change prior to discharge. Send with one additional dressing to be changed in 5 days by home health RN. Pain control. Ice. Dispo: Home with Home Health pending medical clearance. Subjective Subjective Date/Time Seen: 10/12/20 09:32 POD #2 No new complaints. Pain well controlled. Hopeful for discharge home today. Review of Systems Review of Systems: All systems reviewed & are unremarkable except as noted in HPI and below Exam Const: General: healthy appearing; No in distress or confusion Orientation/consciousness: patient oriented x3 and No confusion HENMT: Head: normal to inspection, normocephalic and atraumatic Eyes: Conjunctivae: conjunctivae normal Sclera: sclerae normal Resp: Effort & Inspection: normal respiratory effort and no audible wheezes Neuro: General: patient oriented x3 and No confusion Extrem: Right lower extremity: hip/thigh Details: other ( dressing in place. Mild swelling. Muscle soft.), lower leg Details: normal to inspection and other ( Negative Homans sign); no tenderness and foot Details: toes with normal ROM, vascular exam Details: dorsalis pedis pulse present and normal capillary refill, tendon exam Details: active flexion normal and active extension normal and motor-sensory exam Details: light-touch normal Location: in all toes Psych: Affect: normal affect Objective Data Vital Signs Vital Signs: Vital Signs - 24 hr 10/11/20 12:55 10/11/20 18:00 10/11/20 21:47 Temperature 36.6 C 37.6 C H 36.9 C Pulse Rate 90 90 88 Respiratory Rate 18 18 18 Blood Pressure 150/67 H 115/71 154/71 H Pulse Oximetry 93 96 98 10/12/20 00:00 10/12/20 04:00 10/12/20 05:41 Temperature 36.4 C L Pulse Rate 83 Respiratory Rate 20 Blood Pressure 154/71 H 125/75 125/75 Pulse Oximetry 95 Intake/Output Intake/Output: Intake & Output 10/09/20 10/10/20 10/11/20 10/12/20 23:59 23:59 23:59 23:59 Intake Total 1200 2460 1010 240 Output Total 1575 2250 1550 Balance -375 210 -540 240 Meds/Results Medications: Active Medications Generic Name Dose Route Start Last Admin Trade Name Freq PRN Reason Stop Dose Admin Acetaminophen 650 mg 10/10/20 11:10 10/11/20 09:23 Acetaminophen 325 Mg Tablet PO 650 mg Q6H PRN Administration Mild Pain (1-3) or Fever Hydrocodone Bitart/Acetaminophen 1 tab 10/10/20 11:10 10/12/20 02:49 Hydrocodone/Acetaminophen (*Crx) 5-325 Mg Tablet PO 1 tab Q3H PRN Administration Pain Rated 4-6 Al Hydrox/Mg Hydrox/Simethicone 30 ml 10/10/20 11:10 10/11/20 23:59 Mag Hydrox/Al Hydrox/Simeth 30 Ml Udc PO 30 ml Q6H PRN Administration Indigestion Diazepam 5 mg 10/10/20 11:10 Diazepam (*Crx) 5 Mg Tablet PO Q8H PRN Muscle Spasm Docusate Sodium 100 mg 10/10/20 17:00 10/12/20 09:12 Docusate Sodium 100 Mg Capsule PO 100 mg BID LILI Administration Famotidine 20 mg 10/10/20 21:00 10/12/20 09:12 Famotidine 20 Mg Tablet PO 20 mg Q12HR LILI Administration Fondaparinux 2.5 mg 10/11/20 09:00 10/12/20 09:09 Fondaparinux Sodium 2.5 Mg/0.5 Ml Syringe SUB-Q 2.5 mg DAILY LILI Administration Magnesium Hydroxide 30 ml 10/10/20 11:10 Magnesium Hydroxide Susp 30 Ml Udc PO BID PRN Constipation Morphine Loaiza
--- NOTE | 2020-10-12 11:22 | PM.DS ---
DS: Admitting Diagnosis Admitting Diagnosis closed fracture of right hip DS: Discharge Diagnosis Discharge Diagnosis (1) Fracture of hip, right, closed: Qualifiers: Encounter type: subsequent encounter Fracture healing: with routine healing Qualified Code(s): S72.001D - Fracture of unspecified part of neck of right femur, subsequent encounter for closed fracture with routine healing Code(s): S72.001A - Fracture of unspecified part of neck of right femur, initial encounter for closed fracture Status: Acute Assessment and Plan: status post right hip replacement by Dr. Torres. surgery went well without complication. patient discharged with aspirin for DVT prophylaxis and lortab pain control (2) Alcoholism: Code(s): F10.20 - Alcohol dependence, uncomplicated Status: Acute Assessment and Plan: Cessation discussed, alcoholism resources provided (3) Hyponatremia: Code(s): E87.1 - Hypo-osmolality and hyponatremia Status: Acute Assessment and Plan: hypernatremia likely secondary to have polydipsia and alcoholism, explained to patient to limit fluid intake to 15 her cc per day (4) Nicotine dependence: Qualifiers: Nicotine product type: cigarettes Code(s): F17.200 - Nicotine dependence, unspecified, uncomplicated Status: Acute Assessment and Plan: patient's daily smoker, educated about smoking cessation DS: Summary Hospital Course Reason for hospitalization: right hip fracture Hospital Course: Patient is a 65-year-old female with past medical history of alcoholism who presents to ED with complaints of right hip pain after falling at a bar. She is found to have a right subcapital fracture of right femoral neck. she underwent surgery on 10/10/[address]HA [address] Torres. surgery went well without complication. patient will be discharged home with home health for continued physical therapy. Information was given to patient for alcoholism. Patient's sodium was low likely secondary to malnutrition, polydipsia, alcoholism. I educated patient on having a well-balanced diet and to limit fluid intake to 1500 cc per day. Patient will follow-up with PCP in 1 week and Orthopedic 4 weeks. she will have dressing changes 5 days by home health nurse. She is to be weight-bearing as tolerated. She has had precautions for her PT at home without home health. she will have home health nurse remove marva on 10/25/20. she is continue aspirin for DVT prophylaxis as per orthopedic surgeon. She will be sent home with some pain control with Lortab. patient's vitals stable, labs stable, patient is stable for discharge. Patient understands and agrees with plan. Time spent discussing smoking cessation with patient: 3 to 10 minutes Status at Discharge Cognitive/behavioral status at discharge: at baseline Functional status at discharge: uses cane/walker Overall status at discharge: patient is back to baseline Time Spent with Patient Time attestation: Total time spent providing and/or coordinating discharge services:35 Time spent: Greater than 30 minutes Exam Narrative: - GENERAL: No acute distress. Well-nourished. sitting in chair comfortably - EYES: EOMI. Anicteric. - HENT: Moist mucous membranes. - LUNGS: chronic wheezing on right lung, otherwise stable. Patient is breathing comfortably on room air. - CARDIOVASCULAR: Regular rate and rhythm. No murmur. No JVD. - ABDOMEN: Soft, non-tender and non-distended. No palpable masses. - EXTREMITIES: No edema. Peripheral pulses 2+. Right lower extremity hip replacement with dressing, no bruising or erythema. - NEUROLOGIC: No focal neurological deficits. CN II-XII grossly intact. - PSYCHIATRIC: Awake, Alert and oriented x 3. Appropriate mood and affect. - SKIN: No rashes or lesions. Warm. - LYMPH: No cervical lymphadenopathy. Discharge Plan Discharge Attending physician on discharge: Kelsy Jeffries
[2020-10-12] MEDS: diazePAM (*CRX) 5 MG TABLET PO (11:26)
== END 2020-10-12 11:47 | disposition home health service (06) | DRG 522 ==
LOC: ANHED 23:22 → ANH2MED 10-09 01:17
PROVIDERS: Orthopaedic Surgery; Admitting Provider Internal Medicine; Emergency Provider Emergency Medicine; Visit Provider Student in an Organized Health Care Education/Training Program
PROC: 0SRR0JA Replacement of Right Hip Joint, Femoral Surface with Synthetic Substitute, Uncemented, Open Approach (ICD-10-PCS; CPT 27125; principal; 2020-10-10 07:30)
DX: S72.011A Unspecified intracapsular fracture of right femur, initial encounter for closed fracture (principal); E87.1 Hypo-osmolality and hyponatremia; W01.0XXA Fall on same level from slipping, tripping and stumbling without subsequent striking against object, initial encounter; F17.210 Nicotine dependence, cigarettes, uncomplicated; F10.20 Alcohol dependence, uncomplicated; Y90.2 Blood alcohol level of 40-59 mg/100 ml; E78.5 Hyperlipidemia, unspecified; I73.9 Peripheral vascular disease, unspecified
CPT/HCPCS: 36415; 51702; 71045; 73502; 80048; 80053; 80307; 85025; 85610; 85730; 86850; 86900; 86901; 93005; 96374; 96375; 97110; 97116; 97161; 97165; 97530; 97535; 99285; A9270; C1713; C1776; J0131; J0171; J0690; J1100; J1652; J2250; J2270; J2405; J2704; J2710; J3010; J7030; J7120

== ENCOUNTER 2020-11-05 08:46 | Outpatient (RCR) | payer MEDICARE, SELFPAY ==
--- NOTE | 2020-11-05 09:57 | PTOPEVAL ---
Thank you for referring Maida López to [facility].? The patient is scheduled to be seen for therapy? ____x/week for ___ weeks. Please review, sign, date and return this plan of care DESMOND. I agree with and certify that the following plan of care is medically necessary. Referring Physician Date Admitting Provider: Attending Provider: Will Torres MD Referring Provider: *PT Outpatient Evaluation Start: 11/05/20 08:50 Freq: Status: Active Protocol: Document 11/05/20 08:50 ACR (Rec: 11/05/20 09:57 ACR [id number]) Therapy Assessment Status Assessment Status Assessment Status Evaluation Outpatient Past Medical History Neurological History Hx Cerebrovascular Accident (CVA) Yes Cardiovascular History Hx Hypercholesterolemia Yes Respiratory History Hx Respiratory Disorders No Significant History Gastrointestinal History Hx Gastrointestinal Disorders No Significant History Genitourinary History Hx Genitourinary Disorders No Significant History Musculoskeletal History Hx Fractures Yes: Rt hip and both feet Hematological History Hx Hematological Disorders No Significant History Endocrine History Hx Endocrine Disorders No Significant History HEENT History Hx Sinus Problems Yes Integumentary History Hx Skin Disorders No Significant History Reproductive History Hx Hysterectomy Yes Psychosocial History Hx Anxiety Yes Hx Depression Yes Pain History History of Any Previous or Ongoing No Significant History Instance of Pain Anesthesia History Hx Anesthesia Reactions No Significant History Evaluation Information Problem Diagnosis R TABATHA Onset 10/10/20 Subjective Information Patient reports that she had a Query Text:As Reported By Patient/ posterior hip replacement on Family 10/10/20 due to a fall. She states that she has had 3 falls in the past year. Patient states she had HH therapy 2-3 times a week and is now here for outpatient. Patient states that she is pretty painful throughout the thigh. If the patient stands or walks for a period of time she is pretty fatigued. Patient states that she has no problem with stairs and getting in and out of the car. Patient states she is driving and there is no difficulty.
== END 2020-11-26 23:59 | disposition home or self-care (01) ==
LOC: CHSPT 08:46
PROVIDERS: Visit Provider Orthopaedic Surgery
DX: Z96.641 Presence of right artificial hip joint (principal)
CPT/HCPCS: 97110; 97161; 97530

== ENCOUNTER 2020-12-17 07:49 | Outpatient (CLI) | payer MEDICARE, SELFPAY ==
--- NOTE | ~2020-12-17 | XR_ITS ---
XR hip RT min 2V DATE: 12/17/2020 08:20 INDICATION: Right hip stiffness when sitting long periods TECHNIQUE: AP, lateral and crosstable lateral views of right hip COMPARISON: 10/31/2020 cm for advanced orthopedics pelvis and right hip FINDINGS: Status post right bipolar hip prosthesis, not significant changed since 10/31/2020. No inter lasha fracture or dislocation is detected. IMPRESSION: Right bipolar hip replacement; no fracture or dislocation Reviewed, dictated and finalized at location B.
== END 2020-12-17 07:50 | disposition home or self-care (01) ==
PROVIDERS: PCP Family Medicine; Visit Provider Orthopaedic Surgery
DX: Z48.89 Encounter for other specified surgical aftercare (principal)
CPT/HCPCS: 73502

== ENCOUNTER 2021-07-02 17:47 | Emergency (ER) | payer MEDICARE, SELFPAY ==
--- NOTE | ~2021-07-02 | CT_ITS ---
EXAMINATION: CT brain wo con INDICATION: Head injury COMPARISON: None TECHNIQUE: Standard unenhanced head CT. The dose-length product (DLP) was 605.33 mGy-cm. The mA was a djusted according to patient size. Iterative reconstruction technique was employed. FINDINGS: There is no acute intraparenchymal hemorrhage. No evidence of mass lesion. No evidence of a cute infarction. There is mild periventricular and subcortical hypodensity probably related to small vessel ischemic disease. There is mild prominence of the sulci and ventricles related to cerebral atr ophy. Intracranial calcified cerebral atherosclerosis is noted. There are no extra-axial collections. There is no mass effect or midline shift. The orbits and soft tissues are unremarkable. The visualiz ed sinuses and mastoid air cells are well aerated. IMPRESSION: 1. No acute intracranial abnormality. 2. Age related findings. Reviewed, dictated and finalized at location F.
[2021-07-02 17:58] VITALS: BP 192/110; PULSE 76; RESP 20; TEMP 36.6; O2SAT 99
--- NOTE | 2021-07-02 17:58 | ED.HEATRA ---
HPI - Head Injury General Chief complaint: Head Injury Stated complaint: AMB Time Seen by Provider: 07/02/21 17:50 Source: patient and RN notes reviewed Mode of arrival: ambulatory Limitations: no limitations History of Present Illness HPI Narrative: Patient states that she fell about 4 weeks ago. She struck the back of her head but never had any evaluation done. She drinks alcohol on a regular basis and was at the bar this evening. Apparently the people work there noticed that she stumbled in and seemed to hit the wall. As when she said that she fell 4 weeks ago and never got it evaluated states that she needs a CT scan. Complaint: head injury Onset (ago): week(s) (4) Mechanism of Injury: fall Place: home Loss of Consciousness: unsure Location of injury: occipital Severity: moderate Quality: dull and aching Radiation: none Other Injuries: none Related Data Home Medications Medication Instructions Recorded Confirmed calcium carbonate 260 mg calcium 260 mg PO DAILY 10/31/20 07/02/21 (648 mg) tablet cholecalciferol (vitamin D3) 25 25 mcg PO DAILY 10/31/20 07/02/21 mcg (1,000 unit) capsule multivitamin 1 tablet PO DAILY 10/31/20 07/02/21 Allergies Allergy/AdvReac Type Severity Reaction Status Date / Time ibuprofen Allergy Intermediate RASH Verified 07/02/21 18:10 SWELLING latex Allergy Intermediate Rash Verified 07/02/21 18:10 rofecoxib Allergy Unknown Unknown Verified 07/02/21 18:10 Review of Systems Review of Systems: All systems reviewed & are unremarkable except as noted in HPI and below Constitutional: Constitutional: Denies chills and Denies fever(s) Eyes: Eyes: Denies change in vision and Denies photophobia Gastrointestinal: Gastrointestinal: Denies nausea and Denies vomiting Neurologic: Denies confusion, Reports dizziness, Denies focal weakness and Denies numbness PMFSH Past Medical History Medical History (Updated 07/02/21 @ 19:09 by Jamel Lynn MD) Alcoholism Encounter for postoperative care Fracture of hip, right, closed Hyperlipidemia Nicotine dependence PVD (peripheral vascular disease) Surgical History Surgical History H/O carotid endarterectomy History of History of neck surgery Family History Family History Other Family history of high cholesterol Heart disease History of aneurysm Social History Social History Smoking packs per day: 1 Smoking cigarettes per day: 20.0 Years smoked: 17 Smoking pack-years: 17.00 Smoking status: Current every day smoker Tobacco type: cigarettes Alcohol intake: current Drinks per week: 49 Substance use: never 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 [employer] Gender identity (if verbalized by the patient): Female Spiritual care concerns: No Exam Const: General: healthy appearing, no acute distress and alert Nutritional Appearance: thin Orientation/consciousness: patient oriented x3 HENMT: Head: No palpable skull fracture present and scalp tenderness ( occipital) Ears: external ears normal Face and sinus: normal facial exam Eyes: Conjunctivae: conjunctivae normal Pupils: Equal, round and reactive pupils present EOM: EOMs intact bilaterally Neck: Neck: normal visual inspection Resp: Effort & Inspection: normal respiratory effort Auscultation: clear to auscultation bilaterally Cardio: Rate: regular rate Rhythm: regular rhythm GI: GI Palp: Yes Soft to palpation and No Tenderness to palpation present (GI) Auscultation: normal bowel sounds Back/Spine/Pelvis: Cervical Spine: cervical ROM normal Thoracic/Lumbar Spine: thoraco-lumbar ROM normal Skin: General skin exam: normal color Rashes: no rashes Neuro: General: patient oriented x3, moves all extremities and no focal motor deficits Cranial ner
[2021-07-02 18:04] LABS: Hematocrit 41.2 % (35.0-42.0); Hemoglobin 14.6 g/dL (11.7-13.8); Mean Corpuscular HGB Conc 35.4 g/dL (32.0-36.0); Mean Corpuscular Hemoglobin 33.4 pg (27.0-31.0); Mean Corpuscular Volume 94.3 fL (78.0-102.0); Mean Platelet Volume 8.5 fl (9.2-11.8); Platelet Count Result 243 K/mm3 (150-420); Red Blood Count 4.37 M/mm3 (4.20-5.40); Red Cell Distribution Width 11.4 % (11.6-14.4); White Blood Count 7.8 K/mm3 (4.8-10.8)
[2021-07-02 18:21] LABS: Alanine Aminotransferase 35 U/L (14-59); Albumin Level 4.4 g/dL (3.4-5.0); Alkaline Phosphatase 93 U/L (46-116); Anion Gap 9 mmol/L (8-16); Aspartate Amino Transferase 34 U/L (15-37); Bilirubin,Total 0.3 mg/dL (0.00-1.00); Blood Urea Nitrogen 7 mg/dL (7-18); Calcium 9.4 mg/dL (8.5-10.1); Carbon Dioxide 28 mmol/L (21-32); Chloride 84 mmol/L (98-108); Estimated CRCL calculation 78 ml/min; Estimated Glomerular Filt Rate > 60; Glucose 102 mg/dL (70-99); Osmolality Calculated 250 mOsm/kg (285-295); Potassium 3.2 mmol/L (3.5-5.1); Sodium 121 mmol/L (136-145)
[2021-07-02 18:24] LABS: Ethanol 287 mg/dL (0-6)
[2021-07-02] MEDS: cloNIDine HCL 0.2 MG TABLET PO (18:38)
[2021-07-02 19:05] VITALS: BP 201/104; PULSE 80; RESP 20; O2SAT 98
[2021-07-02 19:29] VITALS: BP 196/102; PULSE 72; RESP 16; O2SAT 96
== END 2021-07-02 19:31 | disposition home or self-care (01) ==
PROVIDERS: Emergency Provider Emergency Medicine; PCP Family Medicine
DX: E87.1 Hypo-osmolality and hyponatremia (principal); F10.20 Alcohol dependence, uncomplicated; S00.03XA Contusion of scalp, initial encounter; I10 Essential (primary) hypertension; F17.200 Nicotine dependence, unspecified, uncomplicated
CPT/HCPCS: 36415; 70450; 80053; 80307; 85027; 99284; A9270

== ENCOUNTER 2021-09-25 13:04 | Outpatient (CLI) | payer MEDICARE, SELFPAY ==
--- NOTE | ~2021-09-25 | MM_ITS ---
EXAMINATION: MM screening oseas BI w susi HISTORY: Screening TECHNIQUE: Craniocaudal and mediolateral oblique 3-D tomosynthesis images were obtained and synthetic 2-D images were generated. CAD analysis was submitted and interpreted. COMPARISON: No prior studies for comparison. BREAST PARENCHYMAL COMPOSITION: There are scattered areas of fibroglandular density. FINDINGS: There is no evidence of suspicious mass, calcification, or architectural distortion to sugg est malignancy in either breast. There has been no suspicious interval change. IMPRESSION: 1. No mammographic evidence of malignancy. 2. Recommend routine screening mammography in one year. BI-RADS Category 1: Negative Reviewed, dictated and finalized at location A.
== END 2021-09-25 13:05 | disposition home or self-care (01) ==
LOC: CHSIMG 13:06
PROVIDERS: PCP Family Medicine; Visit Provider Family Medicine
DX: Z12.31 Encounter for screening mammogram for malignant neoplasm of breast (principal)
CPT/HCPCS: 77063; 77067

== ENCOUNTER 2022-07-14 08:11 | Emergency (ER) | payer MEDICARE, SELFPAY ==
--- NOTE | ~2022-07-14 | XR_ITS ---
EXAMINATION: XR wrist LT min 3V DATE: 07/14/2022 08:25 INDICATION: Left wrist pain. Fall. TECHNIQUE: 3 views of left wrist were obtained. COMPARISON: None. FINDINGS: There is a comminuted fracture of distal radius with extension of a fracture line of the di stal articular surface. The main distal fracture fragment demonstrates impaction and dorsal angulatio n. There is 37 degrees dorsal tilt of the distal articular surface. There is an avulsion fracture of the ulnar styloid. There is mild osteoarthritis of first carpometacarpal joint and first metacarpopha langeal joint. IMPRESSION: 1. Comminuted fracture of the distal radius. 2. Avulsion fracture of the ulnar styloid. Reviewed, dictated and finalized at location A.
--- NOTE | 2022-07-14 08:16 | ED.UPPEXIN ---
HPI - Extremity Injury (Upper) General Chief Complaint: Fall Stated Complaint: left arm pain / fall Time Seen by Provider: 07/14/22 08:14 Source: patient Mode of arrival: ambulatory Limitations: no limitations History of Present Illness HPI narrative: 66 year old female presents to the Emergency Department complaining of left wrist pain and deformity. Patient states she got up to go to the bathroom at 0230 and fell. Denies striking head, loss of consciousness or any other injury. No numbness or tingling. complaint: injury to: left and wrist Onset (ago): hour(s) (5.5) Other injuries: none Handedness: right Place: home Severity: moderate Relieving factors: none Exacerbating factors: movement of extremity Context: fall Associated symptoms: denies other symptoms Related Data Allergies Allergy/AdvReac Type Severity Reaction Status Date / Time ibuprofen Allergy Intermediate RASH Verified 07/14/22 08:29 SWELLING latex Allergy Intermediate Rash Verified 07/14/22 08:29 rofecoxib Allergy Unknown Unknown Verified 07/14/22 08:29 Review of Systems Review of Systems: All systems reviewed & are unremarkable except as noted in HPI and below Constitutional: Constitutional: Reports as per HPI Eyes: Eyes: Reports as per HPI ENT: Reports system reviewed and no additional complaints, except as documented Cardiovascular: Cardiovascular: Reports as per HPI Respiratory: Respiratory: Reports as per HPI Gastrointestinal: Gastrointestinal: Reports as per HPI Genitourinary: Genitourinary: Reports no additional female genitourinary complaints Musculoskeletal: Musculoskeletal: Reports no additional musculoskeletal complaints and Reports arthralgias (left wrist) Integumentary/Breasts: Skin/Breast: Reports system reviewed and no additional complaints, except as docu Neurologic: Reports system reviewed and no additional complaints, except as documented and Denies numbness PMFSH Past Medical History Medical History Alcoholism Encounter for postoperative care Fracture of hip, right, closed Hyperlipidemia Nicotine dependence PVD (peripheral vascular disease) Surgical History Surgical History H/O carotid endarterectomy History of History of neck surgery Family History Family History Other Family history of high cholesterol Heart disease History of aneurysm Social History Social History Smoking packs per day: 1 Smoking cigarettes per day: 20.0 Years smoked: 17 Smoking pack-years: 17.00 Smoking status: Current every day smoker Tobacco type: cigarettes Alcohol intake: current Drinks per week: 49 Substance use: never Occupation/Education: occupation 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 [employer] Gender identity (if verbalized by the patient): Female Spiritual care concerns: No Exam Const: General: healthy appearing Nutritional Appearance: well nourished Orientation/consciousness: patient oriented x3 Limitations: no limitations HENMT: Head: normal to inspection (non-tender) Ears: external ears normal Face/Nose/Sinus: Normal external nose present Face and sinus: normal facial exam Mouth: Yes Normal oral and palatal mucosa present Eyes: Conjunctivae: conjunctivae normal Pupils: Equal, round and reactive pupils present EOM: EOMs intact bilaterally Direct Ophthalmoscopy: no photophobia Neck: Neck: normal visual inspection Other: non-tender Chest: Chest palpation & inspection: normal inspection of the chest and no tenderness Resp: Effort & Inspection: normal respiratory effort Cardio: Rate: regular rate Rhythm: regular rhythm GI: GI Palp: Yes Soft to palpation and No Tenderness to palpation present (GI) Back/Spine/Pelvis:
[2022-07-14 08:17] VITALS: BP 141/72; PULSE 84; RESP 20; TEMP 36.6; O2SAT 94
[2022-07-14 09:01] VITALS: BP 144/75; PULSE 92; RESP 20; TEMP 36.9; O2SAT 98
== END 2022-07-14 09:05 | disposition home or self-care (01) ==
PROVIDERS: Emergency Provider Emergency Medicine; PCP Family Medicine
DX: S52.502A Unspecified fracture of the lower end of left radius, initial encounter for closed fracture (principal); S52.612A Displaced fracture of left ulna styloid process, initial encounter for closed fracture; E78.5 Hyperlipidemia, unspecified; F17.210 Nicotine dependence, cigarettes, uncomplicated; W19.XXXA Unspecified fall, initial encounter; Y92.009 Unspecified place in unspecified non-institutional (private) residence as the place of occurrence of the external cause
CPT/HCPCS: 29125; 73110; 99284; A4565

== ENCOUNTER 2022-07-16 14:17 | Outpatient (CLI) | payer MEDICARE, SELFPAY ==
--- NOTE | 2022-07-16 14:23 | ECG_ITS ---
Measurements Intervals [place] Rate: 84 P: 74 WA: 166 QRS: 81 QRSD: 92 T: 78 QT: 342 QTc: 405 Interpretive Statements SINUS RHYTHM INCOMPLETE RIGHT BUNDLE BRANCH BLOCK MINIMAL Q WAVES- ANTEROLAT/INF LEADS PEAKED T WAVES- CONSIDER HYPERKALEMIA ABNORMAL ECG COMPARED TO ECG 10/08/2020 23:00:27 NO SIGNIFICANT CHANGES Electronically Signed On 07-16-2022 15:10:29 CDT by Roberto Park D.O.
== END 2022-07-16 14:18 | disposition home or self-care (01) ==
LOC: CHSCARD 14:19
PROVIDERS: PCP Family Medicine; Visit Provider Anesthesiology
DX: Z01.810 Encounter for preprocedural cardiovascular examination (principal); F17.210 Nicotine dependence, cigarettes, uncomplicated; R94.31 Abnormal electrocardiogram [ECG] [EKG]; I45.19 Other right bundle-branch block
CPT/HCPCS: 93005

== ENCOUNTER 2022-07-18 01:17 | Day surgery (SDC) | payer MEDICARE, SELFPAY ==
[2022-07-16 10:58] VITALS: BMI 24.0
--- NOTE | 2022-07-16 11:07 | PC.NURSE ---
Report to the Outpatient Waiting Room, entrance under the green pavilion located off [facility], at time __0830 on date ___07/18/22____. Planned Procedure Time: ___1030 . Time changes happen often and if your time is changed the preop area will call you the afternoon before. - You and your visitor will be asked to self-screen and do not enter if you have any COVID symptoms. - A mask is optional within the hospital at this time. Patients may have clear liquids (water, carbonated beverages, clear teas, apple juice) until 3 hours prior to surgery (0730 AM) with a maximum of 20 ounces. - No food from midnight until time of surgery - Infants may have breast milk until 4 hours before surgery, formula 6 hours prior to surgery. - Children will be allowed to drink immediately following surgery. If applicable, please bring a bottle or sippy cup to assist with drinking. Juice, water, soda, and popsicles are readily available. For infants on formula, please bring formula the day of surgery. Pacifiers are allowed. Take the following medications with a SIP of water the morning of surgery: PAIN PILL IF NEEDED DO NOT STOP ANY OF YOUR OTHER PRESCRIPTION MEDICATIONS PRIOR TO SURGERY ?EXCEPT THE FOLLOWING Medications to discontinue per ANESTHESIA - _MULTIVITAMIN OF TODAY, Date to take last dose___07/16/22 Please no make-up, nail yi, hairspray, perfume, deodorant, or body powder the day of surgery. No jewelry (including any body piercings) or valuables the day of surgery, leave them at home. Please take a shower or bath the night before, or the morning of, surgery with an antibacterial soap. Wear comfortable, loose fitting clothing. Children are encouraged to wear pajamas. - Jewelry must be removed prior to entering the operating room. Rings and piercings that are not removed may be cut off. - The hospital will not accept responsibility for valuables. - Please leave all valuables, including medications, at home the day of surgery. If you are going home after surgery, a licensed sprinkler truck driver must drive you home. - NO public transportation without another adult if you receive anesthesia. - We recommend that an adult stay with you for 24 hours following discharge. - We also recommend that you do not drive, make important decision, drink alcoholic beverages, or take any drugs that were not prescribed by your health care provider for at least 24 hours after your discharge time. For Pediatric surgeries, we recommend two adults accompany the child home. Follow any additional instructions given to you from your surgeon. If you or anyone in your household have experienced Covid symptoms in the past week, please notify your surgeon or the nurse liaison at the phone number below for possible testing. Telephone instructions given to ___PT and asked if any additional questions and then verbalized understanding. Patient advised to call surgeon office or pre surgery nurse liaison [phone] if any additional questions.
--- NOTE | 2022-07-17 16:02 | WPDANESEPPF ---
Anes - Initial Pre Proc Eval Procedure: Operation Date: 07/18/22 10:30 Proposed Procedures p Open Reduction Internal Fixation Left Wrist Fracture - Sabas Posada MD Date/Time: 07/17/22 16:02 Surgeon: Sabas Posada MD Pre Op Diagnosis: left distal radius fracture Patient Data Age: 66 Gender: F Height: 1.74 m Weight: 72.72 kg Allergies Allergy/AdvReac Type Severity Reaction Status Date / Time ibuprofen Allergy Intermediate RASH Verified 07/16/22 10:57 SWELLING latex Allergy Intermediate Rash Verified 07/16/22 10:57 rofecoxib Allergy Unknown Rash Verified 07/16/22 10:57 Home Medications Medication Instructions Recorded Confirmed Type hydrocodone 5 mg-acetaminophen 325 1 tablet PO Q6H PRN pain #20 tabs 07/14/22 07/18/22 Rx mg tablet multivitamin (Multiple Vitamins 1 tablet PO DAILY 07/15/22 07/18/22 History tablet) diphenhydramine HCl 25 mg tablet 25 mg PO TID PRN Congestion 07/16/22 07/18/22 History (Benadryl Allergy) Patient hx anesthesia problems: none Family hx anesthesia problems: none Results Review: All pre-operative results and documents have been reviewed as part of the pre-operative evaluation. [facility] Past Medical History Medical History Alcoholism Encounter for postoperative care Fracture of hip, right, closed Hyperlipidemia Nicotine dependence PVD (peripheral vascular disease) Surgical History Surgical History H/O carotid endarterectomy History of History of neck surgery Family History Family History Other Family history of high cholesterol Heart disease History of aneurysm Social History Social History Smoking packs per day: 1 Smoking cigarettes per day: 20.0 Years smoked: 23 Smoking pack-years: 23.00 Smoking status: Current every day smoker Tobacco type: cigarettes Second hand tobacco smoke exposure: Yes Alcohol intake: current Drinks per week: 49 Alcohol use details: 07/16/22 - PT STATES 8 BEERS/WEEK VIA PHONE INTERVIEW Substance use: never Substance use type: does not use Living arrangements: with family Occupation/Education: occupation Additional occupation/education comments: [place] at [employer] Gender identity (if verbalized by the patient): Female Spiritual care concerns: No Anes - Eval Final PreProcedure Day of Procedure 07/17/22 16:02 Patient weight: normal Heart: regular rate and rhythm Lungs: clear to auscultation Airway: Mallampati scale class II Neurological: alert and oriented Last oral intake: >/= 8 hours ASA classification: III Emergent: no Anesthetic plan: proceed Anesthesia type and monitoring: general LMA and standard monitoring Results Review: All pre-operative results and documents have been reviewed as part of the pre-operative evaluation. Informed Consent: The patient's anesthetic plan and its attendant risks and benefits were discussed with the patient/family/POA. Questions were solicited and answers provided to the satisfaction of the patient/family/POA.
--- NOTE | 2022-07-17 16:02 | WPDANESPNB ---
Anes - Peripheral Nerve Block Date/Time: 07/17/22 16:02 I have discussed with the patient/family/POA the placement of a peripheral nerve block for post-operative pain management, including associated risks, benefits, complications, and side effects. Alternative methods of post-operative analgesia were detailed. Questions were solicited and answers provided to the satisfaction of the patient/family/POA. Time-Out: A pre-procedural Time-Out was completed immediately before starting the procedure and confirmed: Patient Identification, Site, Procedure, Patient Position and the Availability of Requisite Equipment. Clinical Indications: Acute post-operative pain management requested by the operative surgeon. Nerve Block Insertion Note Anes-nerve block: supraclavicular Patient position: supine Skin prep: chlorhexidine Needle: 22 gauge, stimulating, insulated echogenic needle. Needle length: 80 mm Technique: ultrasound (in plane) Injectate: bupivacaine 0.25% with epi 5 mcg/ml (20cc) Observations: tolerated well Complications: none
[2022-07-18] VITALS (9 sets, daily range): BP systolic 137–159; BP diastolic 68–90; PULSE 70–87; RESP 10–18; TEMP 36.2–36.6; O2SAT 95–100
--- NOTE | ~2022-07-18 | XR_ITS ---
EXAMINATION: XR surgery orthopedic DATE: 07/18/2022 11:59 INDICATION: ORIF left wrist TECHNIQUE: 3 fluoroscopic images of the left wrist were obtained during procedure performed by Dr. Reggie salcedo. Radiologist was not present for the imaging or procedure. The amount of fluoroscopy time used during this procedure was 3.8 minutes. COMPARISON: 07/14/2022 FINDINGS: Old reduction and internal fixation of the previously noted mildly comminuted fracture the distal lef t radius with volar T plate and screw fixation. Alignment of the fracture post fixation appears near- anatomic. The ulnar styloid fracture also remains in near-anatomic alignment. Scapholunate angle appe ars increased which can be seen with scapholunate ligament tear although assessment is limited with f luoroscopic imaging in nonstandard positioning. IMPRESSION: 1. Near-anatomic alignment post internal fixation of comminuted fractures of the distal left radius. 2. Suggestion of increased scapholunate angle which could be seen with scapholunate ligament tear/ins ufficiency. Could consider correlation with standard series of left wrist radiographs. 3. Unfixed ulnar styloid process avulsion fracture which remains in near-anatomic alignment. Reviewed, dictated and finalized at location A. IMPRESSION: 1. Near-anatomic alignment post internal fixation of comminuted fractures of th e distal left radius. 2. Suggestion of increased scapholunate angle which could be seen with scapholu matt ligament tear/insufficiency. Could consider correlation with standard seri es of left wrist radiographs. 3. Unfixed ulnar styloid process avulsion fracture which remains in near-anatom ic alignment.
--- NOTE | 2022-07-18 07:15 | WPDHPUPDATE1 ---
History and Physical Update Update Date/Time: 07/18/22 07:15 History and Physical has been reviewed, including an updated exam of the patient. There are NO changes in the patient's condition. Risks, benefits, and alternatives have been discussed and questions answered. Patient agrees to proceed with procedure.
[2022-07-18] MEDS: LACTATED RINGERS 1,000 ML 30 ML IV CONT (09:30)
[2022-07-18] MEDS: ACETAMINOPHEN 500 MG TABLET 1000 MG PO (09:30)
[2022-07-18] MEDS: ceFAZolin 2 GM/D5W 50 ML 2 GM/50 ML BAG IVPB (10:08)
[2022-07-18] MEDS: BUPivacaine HCL 0.5% PF 30 ML VIAL 20 ML INFILTRATE (10:50)
[2022-07-18] MEDS: fentaNYL CITRATE INJ (*CRX) 100 MCG/2 ML VIAL 25 MCG IV PUSH ×4 (12:58→13:30)
--- NOTE | 2022-07-18 13:04 | W.PM.PROC2 ---
Procedure Note - Detailed Date of Procedure 07/18/22 Pre-op Diagnosis left distal radius fracture Post-op Diagnosis Same Procedure Performed ORIF LEFT DISTAL RADIUS FRACTURE Surgeon Sabas Posada MD Anesthesia General Description of Procedure THE LEFT UPPER EXTREMITY WAS PREPPED AND DRAPED IN THE STERILE FASHION. A STANDARD HENRYS APPROACH WAS USED TO THE VOLAR WRIST. DISSECTION THROUGH THE SKIN AND SUBCUTANEOUS TISSUE WAS PREFORMED. THE FCR TENDON WAS IDENTIFIED. THE RADIAL ARTERY WAS IDENTIFIED AND RETRACTED. THE THE FLEXOR POLLICIS AND THE COMMON FLEXOR TENDONS WERE IDENTIFIED AND RETRACTED. THE PRONATOR QUADRATUS WAS IDENTIFIED AND INCISED EXPOSING THE FRACTURE. IT WAS HIGHLY COMMINUTED. A TRIAL REDUCTION WAS PREFORMED AND FIXED WITH A K WIRE. NEXT A BIOMET DISTAL RADIUS LOCKING PLATE WAS PLACED BRIDGING THE FRACTURE FRAGMENTS. SCREWS WERE PLACED DISTALLY AND PROXIMALLY. THE DISTAL SCREWS WERE IMAGED AND FOUND TO BE EXTRA ARTICULAR. C ARM IMAGES WERE PREFORMED AND HARDWARE AND FRACTURE FRAGMENTS WERE IN GOOD POSITION. THE TOURNIQUET WAS DEFLATED AND THE BLEEDERS WERE CAUTERIZED. THE FASCIA AND SUB CUTANEOUS LAYERS WERE APPROXIMATED WITH 3-0 VICRYL. THE SKIN WAS APPROXIMATED WITH 3-0 QUIL. DERMABOND WAS APPLIED. STERILE DRESSING AND SPLINT WAS APPLIED. PATIENT WAS EXTUBATED. Estimated Blood Loss -10.0 Complications No immediate complications Condition Stable Disposition PACU
[2022-07-18] MEDS: oxyCODONE HCL (*CRX) 5 MG TAB IR PO (14:42)
--- NOTE | 2022-07-18 15:51 | SUR.PHASEII ---
1530: vitals are stable. Patient is unhooked from monitors and waiting for to get off work and pick her up. She is all ready to go.
--- NOTE | 2022-07-18 15:52 | SUR.PHASEII ---
1527: RN called Dr. Posada because despite RN's assessment patient insisted her splint was too tight. Dr. Posada told me I could stretch it and I would hurt it.
== END 2022-07-18 16:28 | disposition home or self-care (01) ==
PROVIDERS: PCP Family Medicine; Visit Provider Orthopaedic Surgery
PROC: (CPT 25575; principal; 2022-07-18 10:30)
DX: S52.502A Unspecified fracture of the lower end of left radius, initial encounter for closed fracture (principal); S52.615A Nondisplaced fracture of left ulna styloid process, initial encounter for closed fracture; W19.XXXA Unspecified fall, initial encounter; F17.210 Nicotine dependence, cigarettes, uncomplicated
CPT/HCPCS: 25608; 99199; A9270; C1713; J0690; J1100; J1170; J2250; J2405; J2704; J3010; J7120

== ENCOUNTER 2022-07-29 10:32 | Outpatient (CLI) | payer MEDICARE, SELFPAY ==
--- NOTE | ~2022-07-29 | XR_ITS ---
EXAMINATION: XR wrist LT min 3V DATE: 07/29/2022 10:52 INDICATION: Left wrist pain. TECHNIQUE: 5 views of left wrist were obtained. COMPARISON: Left wrist radiographs 07/14/2022 FINDINGS: There is a comminuted fractures of distal radius. The main distal fracture fragment demonst rates near-anatomic alignment status post open reduction internal fixation with volar plate and screw s. There is an avulsion fracture of the ulnar styloid. There is mild osteoarthritis of first carpomet acarpal joint, first metacarpophalangeal joint, and first interphalangeal joint. IMPRESSION: 1. Comminuted fracture of distal radius status post open reduction internal fixation. 2. Avulsion fracture of the ulnar styloid again seen. 3. Mild polyarticular osteoarthritis. Reviewed, dictated and finalized at location A. IMPRESSION: 1. Comminuted fracture of distal radius status post open reduction internal fix ation. 2. Avulsion fracture of the ulnar styloid again seen. 3. Mild polyarticular osteoarthritis.
== END 2022-07-29 10:33 | disposition home or self-care (01) ==
LOC: CHSIMG 10:34
PROVIDERS: PCP Family Medicine; Visit Provider Orthopaedic Surgery
DX: M25.532 Pain in left wrist (principal); S52.502A Unspecified fracture of the lower end of left radius, initial encounter for closed fracture; S52.612A Displaced fracture of left ulna styloid process, initial encounter for closed fracture; M19.032 Primary osteoarthritis, left wrist
CPT/HCPCS: 73110

== ENCOUNTER 2022-12-24 08:29 | Outpatient (CLI) | payer MEDICARE, SELFPAY ==
--- NOTE | ~2022-12-24 | DEXA_ITS ---
Bone Density Report Name: CHLOÉ FISHER Age: 67 Sex: Female Ethnicity: White Date of : 1955 Indication: postmenopausal; screening for osteoporosis; height loss; prior fracture; hysterectomy; Referring Provider: HANH, SASCHA Tomas Study: Bone densitometry was performed. Exam Date: December 24, 2022 Accession number: [id number] Bone Density: Region BMD T-score Z-score Classification AP Spine(L1-L4) 0.990 -0.5 1.4 Normal Femoral Neck (Left) 0.662 -1.7 0.0 Osteopenia Total Hip (Left) 0.787 -1.3 0.1 Osteopenia World Health Organization criteria for BMD impression classify patients as: Normal (T-score at or above -1.0), Osteopenia (T-score between -1.0 and -2.5), or Osteoporosis (T-score at or below -2.5). 10-year Fracture Risk: FRAX not reported because: Prior hip or vertebral fracture Clinical Information Provided by Patient: Have had a previous hip or vertebral fracture Has had a low trauma fracture Smokes Has 3 or more alcoholic drinks per day Has used the following medications: Calcium Has the following medical conditions: Hysterectomy Patient maximum height was 69 Menopause Age: 50 No regular weight bearing exercise Onset of menses at age 13 Number of children 1 Impression: The patient has low bone mass, based on the Left Femoral Neck T-score. The patient has risk factors, including: smoking, excessive alcohol use, previous fracture. Discussion: INCREASED RISK OF FRACTURE DUE TO HISTORY OF FRACTURE. The patient's previous fracture puts the patient at high risk of a future fracture. In untreated patients, the risk of osteoporotic fracture increases approximately two-fold for each 1.0 SD decrease in T-score. Low bone density is not the only risk factor for fracture; also consider factors such as patient's age, frailty or poor health, risk of falling, risk of injury, previous osteoporotic fracture, family history of osteoporosis, cigarette smoking, low body weight, etc. Not everyone with a low trauma fracture has osteoporosis; osteomalacia and other metabolic bone disorders should also be considered. Patients who have osteoporosis should be evaluated for specific diseases and conditions (secondary causes) that may cause or contribute to bone loss and fracture risk. National Osteoporosis Foundation (NOF) recommends pharmacologic intervention for patients with a prior hip or vertebral fracture regardless of BMD T-score. The patient should follow a healthful lifestyle (good nutrition with adequate calcium and vitamin D, and appropriate weight-bearing exercise). Follow-Up: Consider a repeat BMD and Vertebral Fracture Assessment (VFA) exam in 2 years or sooner if medically necessary, to reassess this patient's status. Reported by: Dr. Rodríguez Goyal on 12/24/2022 9:02:00 AM. Reviewed, dictated and finalized at location A.
--- NOTE | ~2022-12-24 | MM_ITS ---
EXAMINATION: MM screening oseas BI w susi HISTORY: Screening TECHNIQUE: Craniocaudal and mediolateral oblique 3-D tomosynthesis images were obtained and synthetic 2-D images were generated. CAD analysis was submitted and interpreted. COMPARISON: 09/25/2021 BREAST PARENCHYMAL COMPOSITION: There are scattered areas of fibroglandular density. FINDINGS: There is no evidence of suspicious mass, calcification, or architectural distortion to sugg est malignancy in either breast. There has been no suspicious interval change. IMPRESSION: 1. No mammographic evidence of malignancy. 2. Recommend routine screening mammography in one year. BI-RADS Category 1: Negative Reviewed, dictated and finalized at location A.
== END 2022-12-24 08:30 | disposition home or self-care (01) ==
LOC: CHSIMG 08:31
PROVIDERS: PCP Family Medicine; Visit Provider Family Medicine
DX: Z12.31 Encounter for screening mammogram for malignant neoplasm of breast (principal); Z78.0 Asymptomatic menopausal state; M85.89 Other specified disorders of bone density and structure, multiple sites
CPT/HCPCS: 77063; 77067; 77080

== ENCOUNTER 2023-08-20 14:29 | Outpatient (CLI) | payer MEDICARE, SELFPAY ==
[2023-08-20 15:29] LABS: Hematocrit 36.6 % (35.0-42.0); Hemoglobin 12.6 g/dL (11.7-13.8); Mean Corpuscular HGB Conc 34.4 g/dL (32-36); Mean Corpuscular Hemoglobin 32.9 pg (27.0-31.0); Mean Corpuscular Volume 95.6 fL (78.0-102.0); Platelet Count Result 250 K/mm3 (150-420); Red Blood Count 3.83 M/mm3 (4.20-5.40)
[2023-08-20 16:05] LABS: Albumin Level 3.7 g/dL (3.4-5.0); Anion Gap 8 mmol/L (4-12); Blood Urea Nitrogen 25 mg/dL (7-18); Calcium 9.5 mg/dL (8.5-10.1); Carbon Dioxide 32 mmol/L (21-32); Chloride 93 mmol/L (98-108); Estimated Glomerular Filt Rate 52; Free T3 2.71 pg/mL (2.18-3.98); Free T4 Free Thyroxine 0.82 ng/dL (0.76-1.46); Glucose 89 mg/dL (70-99); Osmolality Calculated 279 mOsm/kg (285-295); Phosphorus 4.1 mg/dL (2.6-4.7); Potassium 4.9 mmol/L (3.5-5.1); Sodium 133 mmol/L (136-145); Thyroid Stimulating Hormone 1.39 uIU/mL (0.36-3.74); Uric Acid 5.1 mg/dL (2.6-6.0)
[2023-08-20 17:13] LABS: Appearance Urine Clear (Clear); Bilirubin Urine Negative (Negative); Blood Urine Negative (Negative); Color Urine Light Yellow (Yellow); Glucose Urine UA Negative (Negative); Ketones Urine Negative (Negative); Leukocyte Esterase Ur Negative (Negative); Nitrate Urine Negative (Negative); Protein Urine Negative (Negative); Urobilinogen Urine 0.2 mg/dL (0.2-1.0)
[2023-08-20 17:14] LABS: Sodium Urine Random 25 mmol/L (20-110)
[2023-08-20 17:15] LABS: Add Urine Microscopic? NO
[2023-08-24 16:24] LABS: Osmolality, Urine 281 mOsm/kg (50-1200)
== END 2023-08-20 14:30 | disposition home or self-care (01) ==
LOC: CHSLAB 14:44
DX: E87.1 Hypo-osmolality and hyponatremia (principal)
CPT/HCPCS: 36415; 80069; 81003; 82530; 82533; 83930; 83935; 84300; 84439; 84443; 84481; 84550; 85027

== ENCOUNTER 2024-01-04 06:52 | Outpatient (CLI) | payer MEDICARE, SELFPAY ==
[2024-01-04 07:14] LABS: Hematocrit 40.6 % (35.0-42.0); Hemoglobin 13.8 g/dL (11.7-13.8); Mean Corpuscular Hemoglobin 34.2 pg (27.0-31.0); Mean Corpuscular Volume 100.7 fL (78.0-102.0); Mean Platelet Volume 8.6 fl (9.2-11.8); Platelet Count Result 280 K/mm3 (150-420); Red Blood Count 4.03 M/mm3 (4.20-5.40); Red Cell Distribution Width 11.7 % (11.6-14.4)
[2024-01-04 07:48] LABS: Albumin Level 3.7 g/dL (3.4-5.0); Anion Gap 12 mmol/L (4-12); Blood Urea Nitrogen 10 mg/dL (7-18); Calcium 9.5 mg/dL (8.5-10.1); Carbon Dioxide 28 mmol/L (21-32); Chloride 97 mmol/L (98-108); Estimated Glomerular Filt Rate > 60; Glucose 74 mg/dL (70-99); Osmolality Calculated 282 mOsm/kg (285-295); Phosphorus 4.1 mg/dL (2.6-4.7); Potassium 4.8 mmol/L (3.5-5.1); Sodium 137 mmol/L (136-145)
== END 2024-01-04 06:53 | disposition home or self-care (01) ==
LOC: CHSLAB 06:56
DX: E87.1 Hypo-osmolality and hyponatremia (principal)
CPT/HCPCS: 36415; 80069; 85027

== ENCOUNTER 2024-01-13 13:31 | Outpatient (CLI) | payer MEDICARE, SELFPAY ==
--- NOTE | ~2024-01-13 | US_ITS ---
EXAMINATION: US carotid duplex BI DATE: 01/13/2024 13:57 INDICATION: Bilateral carotid stenosis. TECHNIQUE: Grayscale, color Doppler, and pulsed Doppler images of the cervical carotid arteries were obtained. The degree of vessel stenosis is placed in one of the following categories: normal, <50%, 5 0-69%, >=70% but less than near-occlusion, near-occlusion, or total occlusion. Note that percent sten osis relative to normal distal artery lumen diameter is indirectly measured from velocity measurement s as described by Attila, et al. Radiology 2003; 229:340-346. COMPARISON: None. FINDINGS: RIGHT: The right common carotid artery (CCA) peak systolic velocity (PSV) is 82 cm/s. The right internal car otid artery (ICA) PSV is 102 cm/s. The right ICA end-diastolic velocity (EDV) is 28 cm/s. The right I CA/CCA PSV ratio is 1.2. Grayscale and color Doppler images yield an estimate of <50% diameter reduct ion from plaque in the ICA. There is antegrade flow in the right vertebral artery. LEFT: The left CCA PSV is 121 cm/s. The left ICA PSV is 95 cm/s. The left ICA EDV is 41 cm/s. The left ICA/ CCA PSV ratio is 0.8. Grayscale and color Doppler images yield an estimate of <50% diameter reduction from plaque in the ICA. There is antegrade flow in the left vertebral artery. IMPRESSION: 1. <50% stenosis in the right internal carotid artery. 2. <50% stenosis in the left internal carotid artery. Reviewed, dictated and finalized at location A. DENT CARE ASSISTANT
== END 2024-01-13 13:32 | disposition home or self-care (01) ==
DX: I65.23 Occlusion and stenosis of bilateral carotid arteries (principal); Z98.890 Other specified postprocedural states
CPT/HCPCS: 93880

== ENCOUNTER 2024-01-25 11:47 | Outpatient (CLI) | payer MEDICARE, SELFPAY ==
--- NOTE | ~2024-01-25 | MM_ITS ---
EXAMINATION: MM screening oseas BI w susi HISTORY: Screening mammogram TECHNIQUE: Craniocaudal and mediolateral oblique 3-D tomosynthesis images were obtained and synthetic 2-D images were generated. CAD analysis was submitted and interpreted. COMPARISON: 12/24/2022, 09/25/2021 BREAST PARENCHYMAL COMPOSITION:Not Dense. The breasts are almost entirely fatty FINDINGS: No suspicious mass, calcification, or architectural distortion are identified in either blaze ast to suggest malignancy. There has been no suspicious interval change. IMPRESSION: No mammographic evidence of malignancy. Recommend routine screening mammography in one year. BI-RADS Category 1: Negative Reviewed, dictated and finalized at location . OR POWER PLANT OPERATOR
== END 2024-01-25 11:48 | disposition home or self-care (01) ==
LOC: CHSIMG 11:48
DX: Z12.31 Encounter for screening mammogram for malignant neoplasm of breast (principal)
CPT/HCPCS: 77063; 77067

== ENCOUNTER 2024-08-24 07:09 | Outpatient (CLI) | payer MEDICARE, SELFPAY ==
--- OUTSIDE RECORDS SUMMARY | 2024-08-24 07:18 | XMS_ITS | Encounter Summary ---
Author Organization [facility] Address [address] [place] [address] Care Team Providers Care Wastewater Treatment Plant Supervisor Name Role Phone Hermelinda Kumar MD Primary Care Provider [phone] Yocasta Keating DO Primary Care Provider [phone] Te Hudson MD Unavailable [phone] Biju Starkey MD Primary Care Provider Facundo Garcia MD Unavailable [phone] Holden Vargas MD Unavailable [phone] Encounter Details Date Type Department Care Team (Late st Contact Info) Description 10/24/2014 [place] Only [facility] [place] [address] [place] [address] Yocasta Keating DO [address] [facility] [address] [address] Social History Tobacco Use Types Packs/Day Years Used Date Smoking Tobacco: Never Assessed Comments:Smoking History Pac ks/day: 0 Packs Alcohol Use Standard Drinks/Week Comments Yes 0 (1 standard drink = 0.6 oz pur e alcohol) Comments Unknown Sex and Gender Information Value Date Recorded Sex Assigned at Not on file Legal Sex 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 Gender Identity Not on file Sexual Orientation Not on file documented as of this encounter Plan of Treatment Not on file documented as of this encounter Procedures Procedure Name Priority Date/Time Associated Diagnosis Comments SCAN - RADIOLOGY/IMAGING 10/24/2014 documented in this encounter Results * SCAN - RADIOLOGY/IMAGING (10/24/2014) Anatomical Region Laterality Modality Other us Yocasta Keating DO Final Resu lt documented in this encounter Visit Diagnoses Not on filedocumented in this encounter Care Teams Wastewater Treatment Plant Supervisor Relationship Specialty Start Date End Date Hermelinda Kumar MD [address] [place] [address] PCP - General 09/25/14 08/27/20 Yocasta Keating DO [address] [place] [address] PCP - General Family Medicine 08/28/20 12/29/23 Biju Starkey MD [address] [place] [address] [address] [place] [address] PCP - General Family Medicine 12/30/23 Te Hudson MD [address] [place] [address] [address] [place] [address] Consulting Physician Neurology 12/10/22 Facundo Garcia MD [facility] [address] [address] Consulting Physician Nephrology 12/30/23 Holden Vargas MD [phone] [place] [address] Consulting Physician Plastic Surgery 12/30/23 documented as of this encounter
--- OUTSIDE RECORDS SUMMARY | 2024-08-24 07:18 | XMS_ITS | Clinical Summary ---
Author Organization [facility] Facility Address [address] [address] Care Team Providers Care Global Compensation Analyst Name Role Phone Biju Starkey MD Primary Care Provider Allergies Active Allergy Reactions Criticality Noted Date Comments Ibuprofen Hives Medium 01/19/2023 Latex Rash Medium 12/17/2020 Medications Multiple Vitamin (multivitamin) tablet Take 1 tablet by mouth 1 (one) time each day Active calcium carbonate (OS-ARCHIE) 1250 (500 Ca) MG tablet Take 1 tablet by mouth 1 (one) time each day Active cholecalciferol (VITAMIN D-3) 10 MCG (400 UNIT) tablet Take 400 Units by mouth 1 (one) time each day Active sodium chloride 1 g tablet Take 1 tablet (1 g total) by mouth in the morning and 1 tablet (1 g total) in the evening. 180 tablet 01/21/2023 Active GNP GARLIC EXTRACT PO Take 1 tablet by mouth 1 (one) time each day Active cyanocobalamin (VITAMIN B-12) 1000 MCG tablet Take 1,000 mcg by mouth 1 (one) time each day Active Active Problems Problem Noted Date Diagnosed Date Hyponatremia 12/10/2022 01/19/2023 Overview (01/19/2023): Last Assessment & Plan: Asymptomatic, labs ordered. Essential tremor 09/24/2022 01/19/2023 History of carotid endarterectomy 06/04/2022 01/19/2023 Overview (01/19/2023): Initial one done around age 50 and the 2nd one done about 4 - 5 years later Primary hypertension 07/17/2021 01/19/2023 Overview (01/19/2023): Last Assessment & Plan: Blood pressure at goal less than 140/90, continue dietary modification. Nicotine dependence 08/28/2020 01/19/2023 Overview (01/19/2023): Last Assessment & Plan: Advised patient to quit smoking. Nummular eczema 08/28/2020 01/19/2023 Immunizations Immunization Administration Dates Next Due Influenza Split High Dose Preservative Free IM 1 ,11/20/2021 Influenza, Quadrivalent, With Preservative 01/18 [employer] SARS-COV-2 06/14/2020 Pneumococcal Conjugate 13-Valent 01/18/2015 Pneumococcal Polysaccharide 08/28/2020, 2 Td 08/07/2001 Family History Medical History Relation Comments Kidney disease Brother Heart attack Father Kidney disease Father Brain Aneurysm Mother Heart disease Mother Diabetes Paternal Grandmother Heart disease Sister Relation Status Comments Brother Father Mother Paternal Grandmother Sister Social History Tobacco Use Types Packs/Day Years Used Date Smoking Tobacco: Every Day Cigarettes Smokeless Tobacco: Never Tobacco Cessation:Ready to Q uit: Not Asked; Counseling Given: Not Answered Alcohol Use Standard Drinks/Week Comments Yes 0 (1 standard drink = 0.6 oz pur e alcohol) socially Comments Unknown Sex and Gender Information Value Date Recorded Sex Assigned at Not on file Legal Sex Female 10:20 AM EDT Gender Identity Not on file Sexual Orientation Not on file Last Filed Vital Signs Vital Sign Reading Time Taken Comments Blood Pressure 131/70 02/29/2024 1:08 PM TIRE MECHANIC Pulse 84 02/29/2024 1:08 PM TIRE MECHANIC Temperature 36.7 C (98 F) 02/29/2024 1:08 PM TIRE MECHANIC Respiratory Rate 17 02/29/2024 1:08 PM TIRE MECHANIC Oxygen Saturation 95% 02/29/2024 1:08 PM TIRE MECHANIC Inhaled Oxygen Concentration - - Weight 66.7 kg (147 lb) 02/29/2024 1:08 PM TIRE MECHANIC Height 172.7 cm (5' 8) 08/24/2023 1:21 PM CDT Body Mass Index 22.35 08/24/2023 1:21 PM CDT Plan of Treatment Upcoming Encounters Date Type Department Care Team (Late st Contact Info) Description 09/07/2024 1:15 PM CDT [facility] Visit [facility], [facility] [address] [place] [id number] Facundo Garcia MD [address] [place] [address] Health Maintenance Due Date Last Done Comments Breast Cancer Screening 1955 Colorectal Cancer Screening: Annual FOBT 08/16/2004 Colorectal Cancer Screening: Sigmoidoscopy 08/16/2004 Influenza Vaccine (Season Ended) 2024 12/10/2022, 11/20/2021, 01/18/2015 Colorectal Cancer Screening: Colonoscopy 12/18/2030 12/18/2020 Pneumococcal Vaccine: 50+ Years Completed 08/28/2020, 01/18/2015, 11/05/2011 Hepatitis B Vaccine Aged Out No longe r eligible based on patient's age to complete this topic Insurance [facility] Medicare Advance Directives Documents on File Type Date Recorded Patient Investment Sales Assistant Expl anation Advance Care Planning 09/15/2023 1:40 PM Care Teams Global Compensation Analyst Relationship Specialty Start Date End Date Biju Starkey MD [address] [place] [address] PCP - General Family Medicine 02/29/24
--- OUTSIDE RECORDS SUMMARY | 2024-08-24 07:18 | XMS_ITS | Encounter Summary ---
Author Organization [facility] Address [address] [place] [address] Care Team Providers Care Maintenance And Engineering Manager Name Role Phone Te Hudson MD Unavailable [phone] Biju Starkey MD Primary Care Provider Facundo Garcia MD Unavailable [phone] Holden Vargas MD Unavailable [phone] Reason for Visit * Auth/Cert (Routine) Specialty Diagnoses / Procedures Referred By Maribel t Referred To Contact Diagnoses History of colonic polyps Encounter for screening colonoscopy Family history of colon cancer History of colonic polyps [Z86.0100] Encounter for screening colonoscopy [Z12.11] Family history of colon cancer [Z80.0] Procedures MO COLONOSCOPY FLX DX W/COLLJ SPEC WHEN PFRMD COLONOSCOPY Referral ID Status Reason Start Date Expiration Date Visits Re quested Visits Authorized [id number] 1 1 Encounter Details Date Type Department Care Team (Late st Contact Info) Description 07/18/2024 Hospital Encounter [facility] [address] [place] [address] Jamel Jacobsen, DO [address] [address] Social History Tobacco Use Types Packs/Day Years Used Date Smoking Tobacco: Every Day Cigarettes 0.8 35.5 Started: 03/09/1989 Smokeless Tobacco: Never Comments:Smoking History Pac ks/day: 0.75 pack for 32 years =24 pack history Alcohol Use Standard Drinks/Week Comments Yes 0 (1 standard drink = 0.6 oz pur e alcohol) AUDIT-C Answer Date Recorded Q1: How often do you have a drink containing alc ohol? 2-3 times a week 12/30/2023 Q2: How many drinks containi ng alcohol do you have on a typical day when you are drinking? 1 or 2 12/30/2023 Q3: How often do you have si x or more drinks on one occasion? Never 12/30/2023 PHQ-2 Answer Date Recorded PHQ-2 Total Score (If total score is 3 or more points, staff should administer the PHQ-9) 0 12/30/2023 Personal Safety Answer Date Recorded Have you ever been in or are you currently in a harmful physical or emotional relationship or is someone making you feel afraid or unsafe? 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 Gender Identity Not on file Sexual Orientation Not on file documented as of this encounter Plan of Treatment Not on file documented as of this encounter Visit Diagnoses Diagnosis History of colonic polyps Personal history of colonic polyps Encounter for screening colonoscopy Family history of colon cancer Family history of malignant neoplasm of gastrointestinal tract documented in this encounter Admitting Diagnoses Diagnosis History of colonic polyps Personal history of colonic polyps Encounter for screening colonoscopy Family history of colon cancer Family history of malignant neoplasm of gastrointestinal tract documented in this encounter Care Teams Maintenance And Engineering Manager Relationship Specialty Start Date End Date Biju Starkey MD [address] [place] [address] [address] [place] [place] [address] PCP - General Family Medicine 12/30/23 Te Hudson MD [address] [place] [address] [address] [place] [address] Consulting Physician Neurology 12/10/22 Facundo Garcia MD [address] [facility] [address] [place] [address] Consulting Physician Nephrology 12/30/23 Holden Vargas MD [phone] [place] [address] Consulting Physician Plastic Surgery 12/30/23 documented as of this encounter
--- OUTSIDE RECORDS SUMMARY | 2024-08-24 07:18 | XMS_ITS | Referral Summary ---
Author Organization [facility] Medical Office Building B Address [address] [place] [address] Care Team Providers Care Terminal Superintendent Name Role Phone Te Hudson MD Unavailable [phone] Biju Starkey MD Primary Care Provider Facundo Garcia MD Unavailable [phone] Holden Vargas MD Unavailable [phone] Encounters Date Type Department Care Team Description 07/18/2024 Hospital Encounter [facility] [address] [place] [address] Jamel Jacobsen DO 06/13/2024 Telephone [facility] Gastroenterology at [address] [place] [phone] Arina Kimbrough MA 06/06/2024 Telephone [facility] Gastroenterology at [address] [place] [phone] Katty Spangler Prep Instructions 05/24/2024 Telephone [facility] Primary Care at [address] [address] Biju Starkey MD referral for colonoscopy from Last 3 Months Allergies Active Allergy Reactions Criticality Noted Date Comments Ibuprofen Hives Medium Latex Rash Medium 12/17/2020 Medications multivitamin tabletIndicatio ns:Supplement Take 2 tablets by mouth daily Take 2 tablets by mouth daily. Active diphenhydrAMINE (BENADRYL) 25 mg capsule Take 1 tablet/capsu le (25 mg total) by mouth daily as needed (seasonal allergies) Active acetaminophen (TYLENOL) 500 mg tablet Take 1 tablet (500 mg total) by mouth every 6 (six) hours as needed for pain Active garlic 400 mg tablet Take 1 tablet by mouth daily Active cyanocobalamin (Vitamin B-12) 1,000 mcg tablet Take 1 tablet (1,000 mcg total) by mouth daily Active calcium carb-magnesium carb,ox 200 mg calcium- 100 mg tablet,chewable Take by mouth Active aspirin 81 mg chewable tabletIndicatio ns:Bilateral carotid artery stenosis Take 1 tablet (81 mg total) by mouth daily 90 tablet 3 12/30/2023 Active ezetimibe (ZETIA) 10 mg tabletIndicatio ns:Bilateral carotid artery stenosis Take 1 tablet (10 mg total) by mouth daily 90 tablet 3 12/30/2023 Active Active Problems Problem Noted Date Diagnosed Date Encounter for screening colonoscopy 01/04/2024 Family history of colon cancer 01/04/2024 Preventative health care 12/30/2023 Assessment & Plan (12/30/2023 2:02 PM CDT): - New or chronic worsening conditions: no significant acute issues on this visit - Mental health: no significant psychiatric/mental health conditions affecting her day to day functioning - Dental health: Recommend regular dental care and cleaning. Discussed importance of regular tooth brushing, flossing, and dental visits. - Nutrition: Recommend moderation in sodium/caffeine intake, saturated fat and cholesterol, caloric balance, sufficient intake of fresh fruits, vegetables - Exercise: Recommend to exercise at least 30 minutes moderate to vigorous exercise most days of the week. (minimum 150 minutes weekly) - Immunizations: Age and sex appropriate immunizations reviewed and offered - Cervical Cancer screening: not indicated - Breast Cancer screening: past due, reminder provided - Colon cancer screening: past due, referral placed - Lung cancer screening: up to date - Bone desnity/osteoporosis screening:Up to date - control: not indicated S/P hip replacement, right 12/30/2023 Hypo-osmolality and hyponatremia 12/10/2022 Overview (12/30/2023): Following with Nephrology Assessment & Plan (12/30/2023 2:04 PM CDT): - chronic condition, stable status - established and followed by Nephrology - Dr. Garcia - currently on high sodium intake with sodium chloride tablets --> but states she cannot take them so drinks a can of V8 juice and eating a dil pickle and drinking the juice as well - continue current management Lab Results Component Value Date SODIUM 128 (L) 01/21/2023 SODIUM 129 (L) 12/10/2022 SODIUM 130 (L) 06/04/2022 SODIUM 126 (L) 07/17/2021 SODIUM 132 (L) 08/28/2020 Assessment & Plan (12/14/2022 2:07 PM CDT): Asymptomatic, labs ordered. Essential tremor 09/24/2022 Assessment & Plan (12/30/2023 2:01 PM CDT): - chronic condition, stable - evaluated in past by Neurology but no intervention was made as symptoms were mild Bilateral carotid artery stenosis 06/04/2022 Overview (01/28/2024): hx of CVA s/p Marvin CEA 2003 Initial one done around age 50 and the 2nd one done about 4 - 5 years later US Carotid Stenosis 01/30 (scanned copy, done at [facility][1]) <50% stenosis in both right and left ICA 01/30 - Spoke with patient on her results and she stated that the new medication that she was prescribed. Has been causing her some leg cramp, please advise? Can lower Ezetimibe frequency to every other day Assessment & Plan (12/30/2023 2:16 PM CDT): - chronic condition - reports hx of CVA s/p Bilateral CEA 2003 (lost eye sight for 25 minutes) - Initial one done around age 50 and the 2nd one done about 4 - 5 years later - buttermaker helper active smoker, recommend tobacco smoking cessation - not on statin or antiplatelet therapy --. States she was started on them before but not on it - start aspirin 81 mg daily and Ezetimibe 10 mg daily, script sent - recommend obtaining US Carotids, order placed - check labs, orders placed Lab Results Component Value Date LDLCALC 92 06/04/2022 History of colonic polyps 09/03/2020 Assessment & Plan (12/30/2023 1:59 PM CDT): - last colonoscopy 12/2020 - repeat Colonoscopy due Colonoscopy 12/2020 Impression: - One 6 mm polyp in the cecum, removed with a jumbo cold forceps. Resected and retrieved. - Two 8 to 9 mm polyps in the descending colon, removed with a jumbo cold forceps. Resected and retrieved. - Diverticulosis in the sigmoid colon. - Two 5 to 6 mm polyps in the sigmoid colon, removed with a jumbo cold forceps. Resected and retrieved. - Internal hemorrhoids. Recommendation: - Await pathology results. - Repeat colonoscopy in 3 years for screening purposes. - Continue present medications. Cigarette nicotine dependence without complicati on 08/28/2020 Assessment & Plan (12/30/2023 1:58 PM CDT): Social History Tobacco Use Smoking Status Every Day Current packs/day: 0.75 Average packs/day: 0.8 packs/day for 34.8 years (26.1 ttl pk-yrs) Types: Cigarettes Start date: 03/09/1989 Smokeless Tobacco Never Tobacco Comments Smoking History Packs/day: 0.75 pack for 32 years =24 pack history - chronic condition, not at goal - assessed patient readiness for tobacco smoking cessation - discussed the importance of tobacco smoking cessation with goal of being tobacco free - Lung cancer screening - LDCT 04/2023 IMPRESSION: 1. Stable small pulmonary nodules. No suspicious nodule. 2. Slight worsening of chronic bronchial wall thickening and mucous plugging in the right posterior basal segmental bronchus. Probably chronic bronchitis but recommend pulmonology consultation. Lung-RADS category 2S: Benign appearance or behavior. Finding other than a pulmonary nodule which is potentially clinically significant. Recommendation: Low dose Screening CT of chest in 12 months. Assessment & Plan (07/09/2023 9:40 AM CDT): Advised patient to quit smoking. Assessment & Plan (12/14/2022 2:06 PM CDT): Advised patient to quit smoking. Assessment & Plan (06/07/2022 10:26 PM CDT): Advised patient to quit smoking. Assessment & Plan (11/22/2021 9:20 PM CDT): Advised patient to quit smoking. Assessment & Plan (08/28/2020 2:42 PM CDT): Advised patient to quit smoking. Nummular eczema 08/28/2020 Resolved Problems Problem Noted Date Diagnosed Date Resolved Date Brow ptosis, bilateral 01/26/202312/29 BMI 24.0-24.9, adult 12/10/2022 024 Weakness of both lower extremities 06/04/2022 12/10/2022 Assessment & Plan (06/07/2022 10:25 PM CDT): Xrays ordered, labs ordered will follow. Dizziness 06/04/2022 12/10/2022 Assessment & Plan (06/07/2022 10:25 PM CDT): Labs ordered, will follow. Frequent falls 06/04/2022 06/25/2023 Assessment & Plan (06/07/2022 10:25 PM CDT): Xrays ordered, labs ordered, will follow. Consider PT. Dermatochalasis of both upper eyelids 06/02/2022 12/30/2023 Pseudoptosis of left eye 06/02/2022 Pseudoptosis of right eye 06/02/2022 Primary hypertension 07/17/2021 024 Assessment & Plan (07/09/2023 9:40 AM CDT): Resolved. Low sodium diet recommended. Assessment & Plan (12/14/2022 2:06 PM CDT): Blood pressure at goal less than 140/90, continue dietary modification. Assessment & Plan (06/07/2022 10:26 PM CDT): Blood pressure at goal less than 140/90, continue current prescription medications, lisinopril. Assessment & Plan (12/04/2021 7:21 PM CDT): On lisinopril 2.5 mg every day, continue. Low sodium diet recommended. Assessment & Plan (11/22/2021 9:20 PM CDT): Now hypotensive, patient was on lisinopril 10 mg daily. Will reduce to 2.5 mg daily. I recommended patient discontinue medication altogether, but she is afraid of rebound hypertension. Further instructed her to take lisinopril only for bps > 110/70. Assessment & Plan (07/17/2021 12:56 PM CDT): Blood Pressure Follow-up: Lifestyle modifications education provided on sodium reduction and increase physical activity Continue lisinopril 10, follow up in 4 weeks. BP well controlled at home, labile at homes, and does have some elevated BPs occaisonally Today not quite at goal but due to lowe BP at home will not make changes Did not previously have a hx of HTN. Mixed hyperlipidemia 07/17/2021 022 Assessment & Plan (07/17/2021 12:56 PM CDT): HPI: Condition is not at/near goal A&P: ordered labs, encouraged healthy, low carbohydrate lifestyle and at least 150min/week of exercise, continue on current regimen Consider starting statin if remains elevated/increased acvsd risk Chronic fatigue 07/17/2021 12/30/2023 Encounter for screening colonoscopy 09/03/2020 11/20/2021 Overview (09/03/2020): Added automatically from request for surgery [id number] Immunizations Immunization Administration Dates Next Due Influenza, Quadrivalent, Hig h Dose, Preservative Free, Intrr 12/10/2022,11/20/2021 Influenza, Quadrivalent, Spl it, Intramuscular 01/18/2015 Influenza, Trivalent, High D ose, Split, Preservative Free, Intramuscular 12/10/2022,11/20/2021 Influenza, Unspecified 12/10/2022(Deferr ed: Patient Refused),11/29/2020(Deferred: Patient Refused),12/08/2019(Deferred: Patient Refused) [place] (J&J) SARS-CoV-2 Vaccination 06/14/2020 Pneumococcal Conjugate PCV 13 01/18/2015 Pneumococcal Polysaccharide PPV23 08/28/2020, Td, adsorbed 08/07/2001 Tdap 06/30/2015 Social History Tobacco Use Types Packs/Day Years Used Date Smoking Tobacco: Every Day Cigarettes 0.8 35.5 Started: 03/09/1989 Smokeless Tobacco: Never Tobacco Cessation:Ready to Q uit: No; Counseling Given: Yes Comments:Smoking History Packs/day: 0.75 pack for 32 years =24 pack [...] on file Legal Sex Female 12:47 AM HOLISTIC NUTRITIONIST Gender Identity Not on file Sexual Orientation Not on file Last Filed Vital Signs Vital Sign Reading Time Taken Comments Blood Pressure 128/68 12/30/2023 1:27 PM CDT Pulse 91 12/30/2023 1:27 PM CDT Temperature 36.8 C (98.3 F) 12/30/2023 1:27 PM CDT Respiratory Rate 16 12/30/2023 1:27 PM CDT Oxygen Saturation 97% 12/30/2023 1:27 PM CDT Inhaled Oxygen Concentration - - Weight 67.6 kg (149 lb) 05/02/2024 11:05 AM HOLISTIC NUTRITIONIST Height 170.2 cm (5' 7) 05/02/2024 11:05 AM HOLISTIC NUTRITIONIST Body Mass Index 23.34 05/02/2024 11:05 AM HOLISTIC NUTRITIONIST Plan of Treatment Not on file Procedures Procedure Name Priority Date/Time Associated Diagnosis Comments CT LUNG CANCER SCREENING Schedule Routine, Read Routine (OP Routine) 05/02/2024 11:05 AM HOLISTIC NUTRITIONIST Cigarette nicotine dependence without complication SCREENING MAMMOGRAM BILATERAL W RJ Schedule Routine, Read Routine (OP Routine) 01/25/2024 DEXA AXIAL SKELETON BONE DENSITY 1 OR MORE SITES Schedule Routine, Read Routine (OP Routine) 12/24/2022 Screening for osteoporosis Postmenopausal COLONOSCOPY 12/18/2020 7:24 AM CDT HEPATITIS C ANTIBODY Routine 08/28/2020 2:54 PM CDT Encounter for hepatitis C screening test for low risk patient from Last 3 Months or Most Recently Relevant to Health Maintenance Results * CT Lung Cancer Screening (05/02/2024 11:05 AM HOLISTIC NUTRITIONIST) Anatomical Region Laterality Modality Chest N/A Computed Tomogra phy 05/04/2024 4:42 PM HOLISTIC NUTRITIONIST Narrative 05/04/2024 4:57 PM HOLISTIC NUTRITIONIST EXAM DESCRIPTION: CT LUNG CANCER SCREENING REASON FOR STUDY: Screening CT of the chest in a current smoker with a 24 pack year smoking history. Additional history: None. TECHNIQUE: Low dose CT scan of the chest was performed without intravenous contrast using helical scanning technique. The exam extends from the lung apices through the lung bases. Automatic exposure control was used as a dose optimization technique. NOTE: This study was performed for the specific purposes of lung cancer screening and is not an alternative to diagnostic chest CT. RADIATION DOSE: CT dose index volume (CTDIvol) = 1.23 mGy COMPARISON: 04/22/2023, 12/11/2021 FINDINGS: SMOKING RELATED LUNG DISEASE: Mild emphysematous changes. Biapical pleural-parenchymal scarring. Diffuse bronchial wall thickening which is nonspecific but can be seen with chronic bronchitis. LUNG NODULES: Multiple lung nodules including: Unchanged irregular linear 1.3 cm pulmonary nodule associated with adjacent scarring within the medial left lower lobe similar in appearance to 2022 examination (3; 161). Unchanged irregular 7 mm posterior left upper lobe pulmonary nodule with adjacent scarring similar in appearance to 2022 examination (3; 90). Unchanged triangular-shaped left apical 7 mm nodule (3; 43). Right upper lobe punctate calcified pulmonary nodule, likely sequela of previous granulomatous disease. No definite new suspicious pulmonary nodules. CORONARY ARTERY CALCIFICATION: Severe. OTHER: No focal consolidation, pneumothorax, or pleural effusion. Heart size within normal limits. No thoracic aortic aneurysm. Small hiatal hernia. Unremarkable appearance of the visualized thyroid. Partially calcified lymph nodes likely representing sequela of previous granulomatous disease. Nonspecific dilated left upper quadrant small bowel loop with air-fluid level. Multilevel degenerative changes of the visualized spine. No aggressive appearing osseous lesions. No acute osseous abnormality. Multilevel prominent Schmorl's nodes. Osteoporosis. 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 Bilateral small fat containing Bochdalek's hernias. IMPRESSION: Similar-appearing bilateral pulmonary nodules and scarring. No definite new suspicious pulmonary nodules. Nonspecific dilated left upper quadrant bowel loop with air-fluid level, partially visualized. Correlate with patient's symptoms and consider dedicated CT of the abdomen and pelvis. Incidental and chronic findings as above. Lung-RADS category 2S: Benign appearance or behavior. Finding other than a pulmonary nodule which is potentially clinically significant. Recommendation: Low dose Screening CT of chest in 12 months. Additional recommendations as above. THIS IS AN ELECTRONICALLY VERIFIED FINAL REPORT 05/04/2024 4:57 PM - Electronically signed by Aiden Hines M.D. NS: NS Report ID: [id number] Reading Location: [id number] Biju Starkey MD [facility] CT PROCEDURES Final Result * Screening Mammogram Bilateral W Rj (01/25/2024) Anatomical Region Laterality Modality Breast Bilateral Mammography Generic External Data Provider [facility] MAMMO PROCEDU RES Final Result * Dexa Axial Skeleton Bone Density 1 or 2 Site (12/24/2022) Anatomical Region Laterality Modality Body N/A Radiographic Judith ging us Yocasta Keating DO IMG DXA PROCEDURES Final R esult * COLONOSCOPY (12/18/2020 7:24 AM CDT) Anatomical Region Laterality Modality Other Narrative Procedure Note Erinn Olivares MD - 12/18/2020 7:24 AM CDT [facility] Patient Name: Maida López Procedure Date: 12/18/2020 7:24 AM Date of : 1955 Admit Type: Outpatient Age: 65 Gender: Female Attending MD: Erinn Olivares M.D. Room: [facility] ENDOSCOPY ROOM 1 Note Status: Finalized Patient Profile: This is a 65 year old female. Last colonoscopy more than 10 years ago. Unknown family history of colon cancer. Her brother had some kind of colon surgery requiring colostomy and resection. Procedure: Colonoscopy Indications: Screening for colorectal malignant neoplasm, Last colonoscopy 10 years ago Referring MD: Yocasta Keating D.O. Providers: Erinn Olivares M.D. Impression: - One 6 mm polyp in the cecum, removed with a jumbo cold forceps. Resected and retrieved. - Two 8 to 9 mm polyps in the descending colon, removed with a jumbo cold forceps. Resected and retrieved. - Diverticulosis in the sigmoid colon. - Two 5 to 6 mm polyps in the sigmoid colon,removed with a jumbo cold forceps. Resected andretrieved. - Internal hemorrhoids. Recommendation: - Await pathology results. - Repeat colonoscopy in 3 years for screeningpurposes. - Continue present medications. Medicines: Monitored Anesthesia Care Complications: No immediate complications. Estimated Blood Loss: Estimated blood loss: none. Procedure: Pre-Anesthesia Assessment: - Prior to the procedure, a History and Physicalwas performed, and patient medications and allergieswere reviewed. The patient's tolerance of previous anesthesia was also reviewed. The risks andbenefits of the procedure and the sedation options and risks were discussed with the patient. All questions were answered, and informed consent was obtained. Prior Anticoagulants: The patient has taken no previous anticoagulant or antiplatelet agents except for aspirin. ASA Grade Assessment: III - A patient with severe systemic disease. After reviewing the risksand benefits, the patient was deemed in satisfactory condition to undergo the procedure. The benefits, risks and alternatives of theprocedure and sedation were discussed and informed consentwas obtained. All questions were answered. Please referto the signed informed consent document in the medical record. The scope was passed under direct vision.The Pediatric Colonoscope PCF-H190L [id number] was introduced through the anus and advanced to the the cecum, identified by appendiceal orifice andileocecal valve. The bowel preparation used was Miralax via split dose instruction. The bowel preparation usedwas bisacodyl tablets via split dose instruction. The quality of the bowel preparation was good. Bowelprep was administered using a split dose. Findings: The perianal and digital rectal examinations were normal. The appendiceal orifice appeared normal. A 6 mm polyp was found in the cecum. The polyp was sessile. The polyp was removed with a jumbo cold forceps. Resection and retrieval were complete. The ascending colon appeared normal. The transverse colon appeared normal. Two semi-sessile polyps were found in the descending colon. Thepolyps were 8 to 9 mm in size. These polyps were removed with a jumbo cold forceps. Resection and retrieval were complete. Multiple medium-mouthed diverticula were found in the sigmoidcolon. Two sessile polyps were found in the sigmoid colon. The polyps were 5to 6 mm in size. These polyps were removed with a jumbo cold forceps. Resection and retrieval were complete. Internal hemorrhoids were found during retroflexion. The hemorrhoids were small. Electronically signed by Erinn Olivares M.D. Erinn Olivares M.D. 12/18/2020 8:41:32 AM Number of Addenda: 0 Note Initiated On: 12/18/2020 7:24 AM Procedure Code(s): --- Professional --- 89196, Colonoscopy, flexible; with biopsy, single or multiple Diagnosis Code(s): --- Professional --- K63.5, Polyp of colon Z12.11, Encounter for screening for malignant neoplasm of colon K64.8, Other hemorrhoids K57.30, Diverticulosis of large intestine without perforation orabscess without bleeding CPT copyright 2019 [employer]. All rights reserved. The codes documented in this report are preliminary and upon medical biller coder reviewmay be revised to meet current compliance requirements. Recognized by the [place] [employer] for promoting quality in endoscopy Erinn Olivares MD ENDOSCOPY PROCEDURES Final Result * Hepatitis C antibody (08/28/2020 2:54 PM CDT) Hep C Ab Nonreactive Nonreactive [facility] ([facility]) Comment: Interpretive Data Nonreactive: Antibodies to HCV not detected. Does NOT exclude the possibility of recent exposure to HCV. Equivocal: Equivocal for HCV antibodies. Supplemental molecular testing will be automatically performed to determine infection status in accordance with current CDC screening recommendations. Reactive: Positive for HCV antibodies. This may represent current or past HCV infection. Supplemental molecular testing will be automatically performed to determine current infection status in accordance with current CDC screening recommendations. Interpretive data was last revised on 2019. Testing performed by: [facility], [address] [place] [address], [place]., [address] Blood specimen (specimen) 08/28/2020 2:54 PM CDT 08/29/2020 10:26 AM CDT us Yocasta Keating DO LAB MICROBIOLOGY - GENERAL ORDERABLES Final Result [facility] Department [place] [address] from Last 3 Months or Most Recently Relevant to Health Maintenance Insurance UHC MEDICARE ADVANTAGE [facility] Address: [address] [address] [facility] MEDICARE ADVANTAGE [facility] Address[place] [address] [place] [id number] [facility] MEDICARE ADVANTAGE [facility] Address: [address] [place] [phone] Advance Directives For more information, please contact: [phone] * Full Code (Latest Code Status on File) Date Activated Date Inactivated Comments 12/18/2020 7:17 AM 12/18/2020 1:45 PM * Full Code Date Activated Date Inactivated Comments 12/18/2020 7:17 AM 12/18/2020 7:17 AM Care Teams Terminal Superintendent Relationship Specialty Start Date End Date Biju Starkey MD [address] [place] [address] DR BOLDEN [address] [place], [place] [address] [address] PCP - General Family Medicine 12/30/23 Te Hudson MD [address] [place] [address] [address] [place] [address] Consulting Physician Neurology 12/10/22 Facundo Garcia MD [address] [address] Consulting Physician Nephrology 12/30/23 Holden Vargas MD [address] [facility] [id number] [place] [address] Consulting Physician Plastic Surgery 12/30/23
--- OUTSIDE RECORDS SUMMARY | 2024-08-24 07:18 | XMS_ITS | Clinical Summary ---
Author Organization [facility] Address [facility] [place] [address] Care Team Providers Care Linotype Worker Name Role Phone Yocasta Keating DO Primary Care Provider [phone] Source Comments [facility],non-[facility] Affiliates and Associated Physician Practices is amultiple site organization consisting of ambulatory clinics and hospital sitesin [place], [place], [place]. This disclosure is being madepursuant to the Care Everywhere program and may not contain all information available regarding this patient. Last updated 17.[facility] Spindle Social History Tobacco Use Types Packs/Day Years Used Date Smoking Tobacco: Never Assessed Comments Unknown Sex and Gender Information Value Date Recorded Sex Assigned at Not on file Legal Sex Female 10:26 AM CDT Gender Identity Not on file Sexual Orientation Not on file Plan of Treatment Health Maintenance Due Date Last Done Comments BONE DENSITY TESTING 1955 COLOGUARD (AGES 45-75) - COL ON CA SCREENING 1955 COLON MONITORING 1955 COLONOSCOPY - COLON CA SCREENING 1955 CT COLONOGRAPHY - COLON CA SCREENING 1955 Colorectal Cancer Screening 1955 FIT - COLON CA SCREENING 1955 FLEX SIG - COLON CA SCREENING 1955 LIPID TESTING 1955 MAMMOGRAM 1955 HEPATITIS C SCREENING 08/12/1973 DTAP/TDAP/TD VACCINES (1 - Tdap) 08/16/1974 PNEUMOCOCCAL VACCINE 50+ (1 of 1 - PCV) 08/16/2005 ZOSTER VACCINE (1 of 2) 08/16/2005 COVID-19 VACCINE (2 - 2023-2 5 season) 2023 06/14/2020 DEPRESSION SCREENING 03/09/2024 MEDICARE AWV CALENDAR YEAR 2024 INFLUENZA VACCINE (Season Ended) 2024 01/19/20 15 Respiratory Syncytial Virus (RSV) Vaccine Pt: or over 60 yrs (1 - 1-dose 75+ series) 08/16/2030 HEPATITIS B VACCINE Aged Out No longe r eligible based on patient's age to complete this topic HIB VACCINE Aged Out No longer eligi ble based on patient's age to complete this topic HPV VACCINE Aged Out No longer eligi ble based on patient's age to complete this topic MENINGOCOCCAL (Group B) VACC INE SHARED DECISION-MAKING Aged Out No longer eligibl e based on patient's age to complete this topic MENINGOCOCCAL GROUPS A/C/Y/W VACCINE Aged Out No longer eligible b ased on patient's age to complete this topic Insurance Care Teams Linotype Worker Relationship Specialty Start Date End Date Yocasta Keating DO [address] [place] [id number] PCP - General Family Medicine 01/05/23
--- OUTSIDE RECORDS SUMMARY | 2024-08-24 07:18 | XMS_ITS | Continuity of Care Document ---
Author Organization [facility]ly [facility] Address [address] [place] [address] [place] [address] Phone Care Team Providers Care Urban Redevelopment Specialist Name Role Phone Angelito Chambers MD Unavailable Unavailable Advance Directives Directive Yes / No Effective Date File Name No Information Encounters Encounter Description Practice Location Reason(s) For Visit Diagnoses Date Provider Providers Copied on Encounter [facility], [id number] [place] [address] [address], [place], [place], [id number], [place] tel:[phone] [facility] No Information Reyes Eaton. [address] [place] [address], [facility] [address], [address], [place]. tel:[phone] Referring Provider: Jamel Dunham, [facility] [address], [place], [address]. tel:[phone] Family History Family Member Type Diagnosis Age At Onset No Information Payers Payer name Insurance type Covered democrat ID Authoriza tion(s) No Information Social History [...]
--- OUTSIDE RECORDS SUMMARY | 2024-08-24 07:18 | XMS_ITS | Clinical Summary ---
Author Organization [facility] Address [address] [place] [address] Care Team Providers Care Telecommunications Repairer Name Role Phone Te Hudson MD Unavailable [phone] Biju Starkey MD Primary Care Provider Facundo Garcia MD Unavailable [phone] Hodlen Vargas MD Unavailable [phone] Allergies Active Allergy Reactions Criticality Noted Date [...] (01/28/2024): hx of CVA s/p Marvin CEA 2004 Initial one done around age 50 and the 2nd one done about 4 - 5 years later US Carotid Stenosis 01/30 (scanned copy, done at [facility]) <50% stenosis in both right and left [...] about 4 - 5 years later - assisted active smoker, recommend tobacco smoking cessation - [...] of right eye 06/02/2022 Primary hypertension 07/17/2021 Assessment & Plan (07/09/2023 9:40 AM CDT): [...] (09/03/2020): Added automatically from request for surgery [id number] Encounters Date Type Department Care Team Description 07/18/2024 Hospital Encounter [facility] [address] [place] [address] Jamel Jacobsen DO 06/13/2024 Telephone [facility] Gastroenterology at [address] [place] [id number] Arina Kimbrough MA 06/06/2024 Telephone [facility] G[facility]enterology at [address] [place] [phone] Katty Spangler Prep Instructions 05/24/2024 Telephone [facility] Primary Care at [address] [address] Biju Starkey MD referral for colonoscopy from Last 3 Months Immunizations Immunization Administration Dates Next Due Influenza, Quadrivalent, Hig h Dose, Preservative Free, Intrr 12/10/2022,11/20/2021 Influenza, Quadrivalent, Spl it, Intramuscular 01/18/2015 Influenza, Trivalent, High D ose, Split, Preservative Free, Intramuscular 12/10/2022,11/20/2021 Influenza, Unspecified 12/10/2022(Deferr ed: Patient Refused),11/29/2020(Deferred: Patient Refused),12/08/2019(Deferred: Patient Refused) Tomveyi Bidamon (J&[employer]) SARS-CoV-2 Vaccination 06/14/2020 Pneumococcal Conjugate PCV 13 01/18/2015 Pneumococcal Polysaccharide PPV23 08/28/2020, Td, adsorbed 08/07/2001 Tdap 06/30/2015 Surgical History Surgery Date Site/Laterality Comments HYSTERECTOMY SECTION TONSILLECTOMY REPLACEMENT TOTAL HIP LATERA L POSITION Right COLONOSCOPY more than 10 yrs ago COLONOSCOPY 12/18/2020 ARM SURGERY Left wrist fx surgery CAROTID ENARTERECTOMYY 03/09/2003 - 03/08/2004 Bilateral Medical History Medical History Date Comments Stroke (HCC) Family History Medical History Relation Name Comments Kidney disease Brother Heart attack Father Myocardial Infa rction; Cause of : Myocardial Infarction Aneurysm Mother Relation Name Status Comments Brother Father (Age 54) Mother Social History Tobacco Use Types Packs/Day Years [...] on file Legal Sex Female 12:47 AM RESIZER OPERATOR Gender Identity Not on file Sexual Orientation Not on file Obstetrics History Para Term AB IAB SAB Ectopic Multiple Livin g Live Births 2 Date Outcome GA Total Labor Labor/2nd/3rd Weight Sex Type Anes PTL Radha A1 A5 Name Clin Last Filed Vital Signs Vital Sign Reading Time Taken Comments Blood Pressure 128/68 12/30/2023 1:27 PM CDT Pulse 91 12/30/2023 1:27 PM CDT Temperature 36.8 C (98.3 F) 12/30/2023 1:27 PM CDT Respiratory Rate 16 12/30/2023 1:27 PM CDT Oxygen Saturation 97% 12/30/2023 1:27 PM CDT Inhaled Oxygen Concentration - - Weight 67.6 kg (149 lb) 05/02/2024 11:05 AM RESIZER OPERATOR Height 170.2 cm (5' 7) 05/02/2024 11:05 AM RESIZER OPERATOR Body Mass Index 23.34 05/02/2024 11:05 AM RESIZER OPERATOR Plan of Treatment Health Maintenance Due Date Last Done Comments Zoster Vaccine (1 of 2) 08/16/2005 Covid-19 Vaccine (2 - 2023-2 5 season) 2023 06/14/2020 Influenza Vaccine (Season Ended) 2024 12/10/2022, 12/10/2022, 11/20/2021, Additional history exists Osteoporosis Screening-Bone Density Scan 12/24/2024 12/24/2022, 09/13/2020 Depression Screening 12/29/2024 12/30/2023, 06/25/2023, 12/10/2022, Additional history exists Fall Risk Assessment 12/29/2024 12/30/2023, 06/25/2023, 12/10/2022, Additional history exists Well Visit 65+ 12/29/2024 12/30/2023, 06/2022, 11/20/2021, Additional history exists Breast Cancer Screening-Mammogram 01/24/2025 01/25/2024, 12/24/2022, 09/25/2021, Additional history exists Lung Cancer Screening 05/03/2025 05/02/2024 , 04/22/2023, 12/11/2021, Additional history exists DTaP/Tdap/Td Vaccine (2 - Td or Tdap) 06/29/2025 06/30/2015, 08/07/2001 Colon Cancer Screening-Colonoscopy 12/18/20302020 Hepatitis C Screening Completed 08/28/2020 Pneumococcal vaccine 65+ Completed 021, 01/18/2015, 11/05/2011 Hepatitis B Screening Completed 06/25/2023 Procedures Procedure Name Priority Date/Time Associated Diagnosis Comments CT LUNG CANCER SCREENING Schedule Routine, Read Routine (OP Routine) 05/02/2024 11:05 AM RESIZER OPERATOR Cigarette nicotine dependence without complication SCREENING MAMMOGRAM [...] CT Lung Cancer Screening (05/02/2024 11:05 AM RESIZER OPERATOR) Anatomical Region Laterality Modality Chest N/A Computed Tomogra phy 05/04/2024 4:42 PM RESIZER OPERATOR Narrative 05/04/2024 4:57 PM RESIZER OPERATOR EXAM DESCRIPTION: CT LUNG CANCER SCREENING REASON [...] Aiden Hines M.D. NS: NS Report ID: [id number] Reading Location: [id number] Biju Starkey MD IMG CT PROCEDURES Final Result * Screening Mammogram Bilateral W Rj (01/25/2024) Anatomical Region Laterality Modality Breast Bilateral Mammography us Generic External Data Provider IMG MAMMO PROCEDU RES Final Result * Dexa Axial Skeleton Bone Density 1 or 2 Site (12/24/2022) Anatomical Region Laterality Modality Body N/A Radiographic Judith ging us Yocasta Keating DO IMG DXA PROCEDURES Final R esult * COLONOSCOPY (12/18/2020 7:24 AM CDT) Anatomical Region Laterality Modality Other Narrative Procedure Note Erinn Olivares MD - 12/18/2020 7:24 AM CDT [facility] Patient Name: Maida López Procedure Date: 12/18/2020 7:24 AM Date of : 1955 Admit Type: Outpatient Age: 65 Gender: Female Attending MD: Erinn Olivares M.D. Room: [facility] ENDOSCOPY ROOM 1 Note Status: Finalized Patient [...] passed under direct vision.The Pediatric Colonoscope [id number]-[id number] was introduced through the anus and advanced [...] 7:24 AM Procedure Code(s): --- Professional --- 12444, Colonoscopy, flexible; with biopsy, single or multiple Diagnosis Code(s): --- Professional --- K63.5, Polyp of colon Z12.11, Encounter for screening for malignant neoplasm of colon K64.8, Other hemorrhoids K57.30, Diverticulosis of large intestine without perforation orabscess without bleeding CPT copyright 2019 [employer]. All rights reserved. The codes documented in this report are preliminary and upon ditch worker reviewmay be revised to meet current compliance requirements. Recognized by the [employer] [employer] for promoting quality [...] last revised on 2019. Testing performed by: [facility], [address] [place] [address], [place]., [address] Blood specimen (specimen) 08/28/2020 2:54 PM CDT 08/29/2020 10:26 AM CDT us Yocasta Keating DO LAB MICROBIOLOGY - GENERAL ORDERABLES Final Result [facility] [address] [facility] Department [place] [address] from Last 3 Months or Most Recently Relevant to Health Maintenance Insurance [facility] MEDICARE ADVANTAGE [facility] MEDICARE ADVANTAGE [facility] MEDICARE ADVANTAGE Advance Directives For more information, please contact: [phone] * Full Code (Latest Code Status on File) Date Activated Date Inactivated Comments 12/18/2020 7:17 AM 12/18/2020 1:45 PM * Full Code Date Activated Date Inactivated Comments 12/18/2020 7:17 AM 12/18/2020 7:17 AM Care Teams Telecommunications Repairer Relationship Specialty Start Date End Date Biju Starkey MD [address] [place] [address] [address] [address] PCP - General Family Medicine 12/30/23 Te Hudson MD [address] [place] [address] [address] [place] [address] Consulting Physician Neurology 12/10/22 Facundo Garcia MD [address] [facility] 1 [place] [address] Consulting Physician Nephrology 12/30/23 Holden Vargas MD [address] [phone] [place] [address] Consulting Physician Plastic Surgery 12/30/23
[2024-08-24 07:30] LABS: Hematocrit 36.8 % (35.0-42.0); Mean Corpuscular HGB Conc 35.3 g/dL (32-36); Mean Corpuscular Hemoglobin 33.9 pg (27.0-31.0); Mean Corpuscular Volume 96.1 fL (78.0-102.0); Mean Platelet Volume 8.6 fl (9.2-11.8); Platelet Count Result 238 K/mm3 (150-420); Red Blood Count 3.83 M/mm3 (4.20-5.40); Red Cell Distribution Width 11.8 % (11.6-14.4); White Blood Count 6.2 K/mm3 (4.8-10.8)
[2024-08-24 08:07] LABS: Albumin Level 4.4 g/dL (3.5-5.1); Anion Gap 5 mmol/L (4-12); Blood Urea Nitrogen 15 mg/dL (7-17); Calcium 9.6 mg/dL (8.4-10.2); Carbon Dioxide 30 mmol/L (22-30); Chloride 97 mmol/L (98-107); Estimated Glomerular Filt Rate > 60; Glucose 94 mg/dL (65-110); Osmolality Calculated 274 mOsm/kg (285-295); Phosphorus 3.8 mg/dL (2.5-4.5); Sodium 132 mmol/L (137-145)
== END 2024-08-24 07:10 | disposition home or self-care (01) ==
PROVIDERS: PCP Family Medicine; Visit Provider Internal Medicine Nephrology
DX: E87.1 Hypo-osmolality and hyponatremia (principal)
CPT/HCPCS: 36415; 80069; 85027

== ENCOUNTER 2024-09-28 00:25 | Day surgery (SDC) | payer MEDICARE, SELFPAY ==
[2024-09-16 11:12] VITALS: BMI 22.9
--- OUTSIDE RECORDS SUMMARY | 2024-09-28 00:28 | XMS_ITS | Clinical Summary ---
Author Organization [facility] Address [facility] [facility] [place] [address] Care Team Providers Care Cat And Dog Bather Name Role Phone Yocasta Keating DO Primary Care Provider [phone] Source Comments [facility],non-[facility] Affiliates and Associated Physician Practices is amultiple site organization consisting of ambulatory clinics and hospital sitesin [place], [place], [place] and [place]. This disclosure is being madepursuant to the Care Everywhere program and may not contain all information available regarding this patient. Last updated 17.[facility] [employer] Social History Tobacco Use Types Packs/Day Years [...] MEDICARE AWV CALENDAR YEAR 2024 INFLUENZA VACCINE (#1) 2024 01/18/2015 Respiratory Syncytial Virus (RSV) Vaccine Pt: or [...] to complete this topic Insurance Care Teams Cat And Dog Bather Relationship Specialty [place] [address] [place] [phone] PCP - General Family Medicine 01/05/23
--- OUTSIDE RECORDS SUMMARY | 2024-09-28 00:28 | XMS_ITS | Encounter Summary ---
Author Organization [facility] Address [address] [place] [address] Care Team Providers Care End Lathe Operator Name Role Phone Hermelinda Kumar MD Primary Care Provider [phone] Yocasta Keating DO Primary Care Provider [phone] Te Hudson MD Unavailable [phone] Biju Starkey MD Primary Care Provider Facundo Garcia MD Unavailable [phone] Holden Vargas MD Unavailable [phone] Encounter Details Date Type Department Care Team (Late st Contact Info) Description 10/24/2014 Orders Only [facility] Health Information Management [address] [place] [address] Yocasta Keating DO [address] [facility] [address] [address] Social History Tobacco Use Types Packs/Day Years Used Date Smoking Tobacco: Never Assessed Comments:Smoking History Pac ks/day: 0 Packs Alcohol Use Standard Drinks/Week Comments Yes 0 (1 standard drink = 0.6 oz pur e alcohol) Comments Unknown Sex and Gender Information Value Date Recorded Sex Assigned at Not on file Legal Sex Female 12:47 AM PRODUCT SAFETY MANAGER Gender Identity Not on file Sexual Orientation [...] on filedocumented in this encounter Care Teams End Lathe Operator Relationship Specialty Start Date End Date Hermelinda Kumar MD [address] [place] [address] PCP - General 09/25/14 08/27/20 Yocasta Keating DO [address] [place] [address] PCP - General Family Medicine 08/28/20 12/29/23 Biju Starkey MD [address] [place] [address] [address] [place] [address] PCP - General Family Medicine 12/30/23 Te Hudson MD [address] [place] [address] [address] [place] [address] Consulting Physician Neurology 12/10/22 Facundo Garcia MD [facility] [address] Consulting Physician Nephrology 12/30/23 Holden Vargas MD [address] [phone] [place] [address] Consulting Physician Plastic Surgery 12/30/23 documented as of this encounter
--- OUTSIDE RECORDS SUMMARY | 2024-09-28 00:28 | XMS_ITS | Clinical Summary ---
Author Organization [facility] Address [address] [address] Care Team Providers Care Doughnut Fryer Name Role Phone Biju Starkey MD Primary [...] to quit smoking. Nummular eczema 08/28/2020 01/19/2023 Encounters Date Type Department Care Team Description 09/07/2024 1:15 PM CDT [facility] [address] [phone] Facundo Garcia MD Hyponatremia (Primary Dx) 08/24/2024 Documentation Only [facility] [address] [address] Facundo Garcia MD from Last 3 Months Immunizations Immunization Administration Dates Next Due Influenza Split High Dose Preservative Free IM 1 ,11/20/2021 Influenza, Quadrivalent, With Preservative 01/18 [place] SARS-COV-2 06/14/2020 Pneumococcal Conjugate 13-Valent 01/18/2015 Pneumococcal [...] Sign Reading Time Taken Comments Blood Pressure 124/64 09/07/2024 1:17 PM CDT Pulse 81 09/07/2024 1:17 PM CDT Temperature 37.2 C (99 F) 09/07/2024 1:17 PM CDT Respiratory Rate 18 09/07/2024 1:17 PM CDT Oxygen Saturation 97% 09/07/2024 1:17 PM CDT Inhaled Oxygen Concentration - - Weight 68.5 kg (151 lb) 09/07/2024 1:17 PM CDT Height 172.7 cm (5' 8) 08/24/2023 1:21 PM CDT Body Mass Index 22.96 08/24/2023 1:21 PM CDT Plan of Treatment Upcoming Encounters Date Type Department Care Team (Late st Contact Info) Description 03/13/2025 1:30 PM CONSTRUCTION COORDINATOR Office Visit [facility], [facility] [address] [facility] [address] [place] [phone] Facundo Garcia MD 2 [facility] [address] [place] [address] Health Maintenance Due Date Last Done Comments Breast Cancer Screening 1955 Colorectal Cancer Screening: Annual FOBT 08/16/2004 Colorectal Cancer Screening: Sigmoidoscopy 08/16/2004 Influenza Vaccine (#1) 2024 , 11/20/2021, 01/18/2015 Colorectal Cancer Screening: Colonoscopy 12/18/2030 12/18/2020 Pneumococcal Vaccine: 50+ Years Completed 08/28/2020, 01/18/2015, 11/05/2011 Hepatitis B Vaccine Aged Out No longe r eligible based on patient's age to complete this topic Insurance [facility] Medicare Advance Directives Documents on File Type Date Recorded Patient Deputy Chief Counsel Expl anation Advance Care Planning 09/15/2023 1:40 PM Care Teams Doughnut Fryer Relationship Specialty Start Date End Date Biju Starkey MD PCP - General Family Medicine 02/29/24
--- OUTSIDE RECORDS SUMMARY | 2024-09-28 00:28 | XMS_ITS | Clinical Summary ---
Author Organization [facility] Medical Office Building B Address [address] [place] [address] Care Team Providers Care Regasification Plant Operator Name Role Phone Te Hudson MD Unavailable [phone] Biju Starkey MD Primary Care Provider Facundo Garcia MD Unavailable [phone] Holden Vargas MD Unavailable [phone] Allergies Active Allergy Reactions Criticality Noted Date [...] Carotid Stenosis 01/30 (scanned copy, done at [facility]) <50% stenosis in both right and left [...] about 4 - 5 years later - [facility] active smoker, recommend tobacco smoking cessation - [...] (09/03/2020): Added automatically from request for surgery [id number] Encounters Date Type Department Care Team Description 07/18/[address] [facility] [address] [place] [address] Jamel Jacobsen, DO from Last 3 Months Immunizations Immunization Administration Dates Next Due Influenza, Quadrivalent, Hig h Dose, Preservative Free, Intrr 12/10/2022,11/20/2021 Influenza, Quadrivalent, Spl it, Intramuscular 01/18/2015 Influenza, Trivalent, High D ose, Split, Preservative Free, Intramuscular 12/10/2022,11/20/2021 Influenza, Unspecified 12/10/2022(Deferr ed: Patient Refused),11/29/2020(Deferred: Patient Refused),12/08/2019(Deferred: Patient Refused) [employer] (J&J) SARS-CoV-2 Vaccination 06/14/2020 Pneumococcal Conjugate PCV [...] Date Smoking Tobacco: Every Day Cigarettes 0.8 35.6 Started: 03/09/1989 Smokeless Tobacco: Never Tobacco Cessation:Ready [...] on file Legal Sex Female 12:47 AM ELECTROMECHANICAL EQUIPMENT TESTER Gender Identity Not on file Sexual Orientation [...] 67.6 kg (149 lb) 05/02/2024 11:05 AM ELECTROMECHANICAL EQUIPMENT TESTER Height 170.2 cm (5' 7) 05/02/2024 11:05 AM ELECTROMECHANICAL EQUIPMENT TESTER Body Mass Index 23.34 05/02/2024 11:05 AM ELECTROMECHANICAL EQUIPMENT TESTER Plan of Treatment Health Maintenance Due Date Last Done Comments Zoster Vaccine (1 of 2) 08/16/2005 Covid-19 Vaccine (2 - 2023-2 5 season) 2023 06/14/2020 Influenza Vaccine (#1) 2024 , 12/10/2022, 11/20/2021, Additional history exists Osteoporosis Screening-Bone [...] Read Routine (OP Routine) 05/02/2024 11:05 AM ELECTROMECHANICAL EQUIPMENT TESTER Cigarette nicotine dependence without complication SCREENING MAMMOGRAM [...] CT Lung Cancer Screening (05/02/2024 11:05 AM ELECTROMECHANICAL EQUIPMENT TESTER) Anatomical Region Laterality Modality Chest N/A Computed Tomogra phy 05/04/2024 4:42 PM ELECTROMECHANICAL EQUIPMENT TESTER Narrative 05/04/2024 4:57 PM ELECTROMECHANICAL EQUIPMENT TESTER EXAM DESCRIPTION: CT LUNG CANCER SCREENING REASON [...] left lower lobe similar in appearance to 2021 examination (3; 161). Unchanged irregular 7 mm posterior left upper lobe pulmonary nodule with adjacent scarring similar in appearance to 202 examination (3; 90). Unchanged triangular-shaped left apical [...] Aiden Hines M.D. NS: NS Report ID: [id number] Reading Location: [place] [address] Biju Starkey MD IMG CT PROCEDURES Final Result * Screening Mammogram Bilateral W Rj (01/25/2024) Anatomical Region Laterality Modality Breast Bilateral Mammography Generic External Data Provider [facility] MAMMO PROCEDU RES Final Result * Dexa Axial Skeleton Bone Density 1 or 2 Site (12/24/2022) Anatomical Region Laterality Modality Body N/A Radiographic Judith ging Yocasta Keating DO IMG DXA PROCEDURES Final R esult * COLONOSCOPY (12/18/2020 7:24 AM CDT) Anatomical Region Laterality Modality Other Narrative Procedure Note KarErinn gold MD - 12/18/2020 7:24 AM CDT [facility] Patient Name: Maida López Procedure Date: 12/18/2020 7:24 AM Date of : 1955 Admit Type: Outpatient Age: 65 Gender: Female Attending MD: Erinn Olivares M.D. Room: [facility] ENDOSCOPY ROOM 1 Note Status: Finalized Patient [...] passed under direct vision.The Pediatric Colonoscope PCF-H190L [id number] was introduced through the anus and advanced [...] 7:24 AM Procedure Code(s): --- Professional --- 55294, Colonoscopy, flexible; with biopsy, single or multiple Diagnosis Code(s): --- Professional --- K63.5, Polyp of colon Z12.11, Encounter for screening for malignant neoplasm of colon K64.8, Other hemorrhoids K57.30, Diverticulosis of large intestine without perforation orabscess without bleeding CPT copyright 2019 [place] [employer]. All rights reserved. The codes documented in this report are preliminary and upon die polisher reviewmay be revised to meet current compliance requirements. Recognized by the [place] [employer] for promoting quality in endoscopy us Erinn Olivares MD ENDOSCOPY PROCEDURES Final Result [...] last revised on 2019. Testing performed by: [facility], [address] [place] [address], [place]., [address] Blood specimen (specimen) 08/28/2020 2:54 PM CDT 08/29/2020 10:26 AM CDT us Yocasta Keating DO LAB MICROBIOLOGY - GENERAL ORDERABLES Final Result [facility] [address] [place] [address] from Last 3 Months or Most Recently Relevant to Health Maintenance Insurance [facility] MEDICARE [facility] Address[place] [address] [facility] MEDICARE ADVANTAGE [facility] Address: [place] [address] [facility] MEDICARE ADVANTAGE Advance Directives For more information, please contact: [phone] * Full Code (Latest Code Status on File) Date Activated Date Inactivated Comments 12/18/2020 7:17 AM 12/18/2020 1:45 PM * Full Code Date Activated Date Inactivated Comments 12/18/2020 7:17 AM 12/18/2020 7:17 AM Care Teams Regasification Plant Operator Relationship Specialty Start Date End Date Biju Starkey MD [address] [place] [address] [address] [place] [address] PCP - General Family Medicine 12/30/23 Te Hudson MD [address] [place] [address] [address] [place] [address] Consulting Physician Neurology 12/10/22 Facundo Garcia MD [address] [address] Consulting Physician Nephrology 12/30/23 Holden Vargas MD [address] [phone] [place] [address] Consulting Physician Plastic Surgery 12/30/23
--- OUTSIDE RECORDS SUMMARY | 2024-09-28 00:28 | XMS_ITS | Referral Summary ---
[facility] Address [address] [place] [address] Care Team Providers Care Visual Merchandising Assistant Name Role Phone Te Hudson MD Unavailable Biju Starkey MD Primary Care Provider Facundo Garcia MD Unavailable [phone] Holden Vargas MD Unavailable [phone] Encounters Date Type Department Care Team Description 07/18/2024 Hospital Encounter [facility] [address] [place] [address] Jamel Jacobsen, from Last 3 Months Allergies Active Allergy [...] by mouth daily 90 tablet 3 12/30/2023 5 Active Active Problems Problem Noted Date Diagnosed [...] about 4 - 5 years later - [facility] active smoker, recommend tobacco smoking cessation - [...] Diagnosed Date Resolved Date Brow ptosis, bilateral 01/26/2023 10/23 /2024 BMI 24.0-24.9, adult 12/10/2022 024 Weakness of [...] (09/03/2020): Added automatically from request for surgery [id number] Immunizations Immunization Administration Dates Next Due Influenza, Quadrivalent, Hig h Dose, Preservative Free, Intrr 12/10/2022,11/20/2021 Influenza, Quadrivalent, Spl it, Intramuscular 01/18/2015 Influenza, Trivalent, High D ose, Split, Preservative Free, Intramuscular 12/10/2022,11/20/2021 Influenza, Unspecified 12/10/2022(Deferr ed: Patient Refused),11/29/2020(Deferred: Patient Refused),12/08/2019(Deferred: Patient Refused) [employer] (J&J) SARS-CoV-2 Vaccination 06/14/2020 Pneumococcal Conjugate PCV [...] on file Legal Sex Female 12:47 AM CORPORATE ASSOCIATE ATTORNEY Gender Identity Not on file Sexual Orientation [...] 67.6 kg (149 lb) 05/02/2024 11:05 AM CORPORATE ASSOCIATE ATTORNEY Height 170.2 cm (5' 7) 05/02/2024 11:05 AM CORPORATE ASSOCIATE ATTORNEY Body Mass Index 23.34 05/02/2024 11:05 AM CORPORATE ASSOCIATE ATTORNEY Plan of Treatment Not on file Procedures Procedure Name Priority Date/Time Associated Diagnosis Comments CT LUNG CANCER SCREENING Schedule Routine, Read Routine (OP Routine) 05/02/2024 11:05 AM CORPORATE ASSOCIATE ATTORNEY Cigarette nicotine dependence without complication SCREENING MAMMOGRAM [...] CT Lung Cancer Screening (05/02/2024 11:05 AM CORPORATE ASSOCIATE ATTORNEY) Anatomical Region Laterality Modality Chest N/A Computed Tomogra phy 05/04/2024 4:42 PM CORPORATE ASSOCIATE ATTORNEY Narrative 05/04/2024 4:57 PM CORPORATE ASSOCIATE ATTORNEY EXAM DESCRIPTION: CT LUNG CANCER SCREENING REASON [...] Aiden Hines M.D. NS: NS Report ID: [id number] Reading Location: [place] [address] Biju St[address] MD G CT PROCEDURES Final Result * Screening Mammogram Bilateral W Rj (01/25/2024) Anatomical Region Laterality Modality Breast Bilateral Mammography Generic External Data Provider [facility] MAMMO PROCEDU RES Final Result * Dexa Axial Skeleton Bone Density 1 or 2 Site (12/24/2022) Anatomical Region Laterality Modality Body N/A Radiographic Judith ging Yocasta Keating DO G DXA PROCEDURES Final R esult * COLONOSCOPY (12/18/2020 7:24 AM CDT) Anatomical Region Laterality Modality Other Narrative Procedure Note Erinn Olivares MD - 12/18/2020 7:[address] [facility] Patient Name: Maida López Procedure Date: 12/18/2020 7:24 AM Date of : 1955 Admit Type: Outpatient Age: 65 Gender: Female Attending MD: Erinn Olivares M.D. Room: [facility] ENDOSCOPY ROOM 1 Note Status: Finalized [...] passed under direct vision.The Pediatric Colonoscope PCF-H190L [id number] was introduced through the anus and advanced [...] 7:24 AM Procedure Code(s): --- Professional --- 41776, Colonoscopy, flexible; with biopsy, single or multiple Diagnosis Code(s): --- Professional --- K63.5, Polyp of colon Z12.11, Encounter for screening for malignant neoplasm of colon K64.8, Other hemorrhoids K57.30, Diverticulosis of large intestine without perforation orabscess without bleeding CPT copyright 2019 [employer] [place] [employer]. All rights reserved. The codes documented in this report are preliminary and upon rouge presser reviewmay be revised to meet current compliance requirements. Recognized by the [place] [employer] for Gastrointestinal Endoscopy for promoting quality in endoscopy us Erinn Olivares MD ENDOSCOPY PROCEDURES Final Result * Hepatitis C antibody (08/28/2020 2:54 PM CDT) Hep C Ab Nonreactive Nonreactive ELIS JONES (POM[place]Y) Comment: Interpretive Data Nonreactive: Antibodies to HCV [...] last revised on 2019. Testing performed by: [facility], [address] [place] [address], [place]., [address] Blood specimen (specimen) 08/28/2020 2:54 PM CDT 08/29/2020 10:26 AM CDT us Yocasta Keating DO LAB MICROBIOLOGY - GENERAL ORDERABLES Final Result ELIS JONES ([place]) 1 [facility] [place] [address] from Last 3 Months or Most Recently Relevant to Health Maintenance Insurance [facility] MEDICARE ADVANTAGE [facility] MEDICARE ADVANTAGE [facility] MEDICARE ADVANTAGE Advance Directives For more information, please contact: [phone] * Full Code (Latest Code Status on File) Date Activated Date Inactivated Comments 12/18/2020 7:17 AM 12/18/2020 1:45 PM * Full Code Date Activated Date Inactivated Comments 12/18/2020 7:17 AM 12/18/2020 7:17 AM Care Teams Visual Merchandising Assistant Relationship Specialty Start Date End Date Biju Starkey MD [address] [facility] [address] [place] [address] PCP - General Family Medicine 12/30/23 Te Hudson MD [address] [facility] [address] [place] [address] Consulting Physician Neurology 12/10/22 Facundo Garcia MD [address] [address] Consulting Physician Nephrology 12/30/23 Holden Vargas MD [address] [phone] [place] [address] Consulting Physician Plastic Surgery 12/30/23
--- OUTSIDE RECORDS SUMMARY | 2024-09-28 00:28 | XMS_ITS | Continuity of Care Document ---
Author Organization [facility] Address [address] [place] [address] [place] [address] Phone Care Team Providers Care Packaging Technician Name Role Phone Angelito Chambers MD Unavailable Unavailable Advance Directives Directive Yes / No Effective Date File Name No Information Encounters Encounter Description Practice Location Reason(s) For Visit Diagnoses Date Provider Providers Copied on Encounter [facility], [id number] [place] [address] [address], [place], [place], [id number], [place] tel:[phone] [facility] No Information Reyes Eaton. [address] [place] [address], [facility] [address], [address], [place]. tel:[phone] Referring Provider: Jamel Dunham, [facility] [address], [place], [address]. tel:[phone] Family History Family Member Type Diagnosis Age [...]
--- OUTSIDE RECORDS SUMMARY | 2024-09-28 00:28 | XMS_ITS | Encounter Summary ---
Author Organization [facility] Address [address] [place] [address] Care Team Providers Care New Accounts Banking Representative Name Role Phone Te Hudosn MD Unavailable [phone] Biju Starkey MD Primary Care Provider Facundo Garcia MD Unavailable [phone] Holden Vargas MD Unavailable [phone] Reason for Visit * Auth/Cert (Routine) Specialty Diagnoses / Procedures Referred By Maribel t Referred To Contact Diagnoses History of colonic polyps Encounter for screening colonoscopy Family history of colon cancer History of colonic polyps [Z86.0100] Encounter for screening colonoscopy [Z12.11] Family history of colon cancer [Z80.0] Procedures NE COLONOSCOPY FLX DX W/COLLJ SPEC WHEN PFRMD COLONOSCOPY Referral ID Status Reason Start Date Expiration Date Visits Re quested Visits Authorized [id number] 1 1 Encounter Details Date Type Department Care Team (Late st Contact Info) Description 07/18/2024 Hospital Encounter [facility] [address] [place] [address] Jamel Jacobsen, DO [address] [address] Social History Tobacco Use Types Packs/Day Years Used Date Smoking Tobacco: Every Day Cigarettes 0.8 35.6 Started: 03/09/1989 Smokeless Tobacco: Never Comments:Smoking History [...] on file Legal Sex Female 12:47 AM MEDICAL LAB DIRECTOR Gender Identity Not on file Sexual Orientation [...] tract documented in this encounter Care Teams New Accounts Banking Representative Relationship Specialty Start Date End Date Biju Starkey MD [address] [place] [address] [address] [place] [address] PCP - General Family Medicine 12/30/23 Te Hudson MD [address] [place] [address] [address] [place] [address] Consulting Physician Neurology 12/10/22 Facundo Garcia MD [address] [facility] [address] [place] [address] Consulting Physician Nephrology 12/30/23 Holden Vargas MD [address] [phone] [place] [address] Consulting Physician Plastic Surgery 12/30/23 documented as of this encounter
[2024-09-28 07:03] VITALS: BP 126/81; PULSE 84; RESP 18; TEMP 36.2; O2SAT 96
[2024-09-28] MEDS: LACTATED RINGERS 1,000 ML 150 ML IV CONT (07:10)
--- NOTE | 2024-09-28 07:23 | P.PNAN_ITS ---
Anes - Initial Pre Proc Eval Procedure: Operation Date: 09/28/24 08:00 Proposed Procedures p Screening Colonoscopy - Kendrick Melo MD Date/Time: 09/28/24 07:23 Surgeon: Kendrick Melo MD Pre Op Diagnosis: Encounter for screening for malignant neoplasm of Patient Data Age: 69 Gender: F Height: 1.73 m Weight: 67.3 kg Last Vital Signs Temp 36.2 C L 09/28/24 07:03 Pulse 84 09/28/24 07:03 Resp 18 09/28/24 07:03 BP 126/81 09/28/24 07:03 Pulse Ox 96 09/28/24 07:03 O2 Del Method Room Air 09/28/24 07:03 Allergies Allergy/AdvReac Type Severity Reaction Status Date / Time ibuprofen Allergy Intermediate RASH Verified 09/28/24 07:02 SWELLING latex Allergy Intermediate Rash Verified 09/28/24 07:02 rofecoxib Allergy Unknown Rash Verified 09/28/24 07:02 Home Medications ?Medication ?Instructions ?Recorded ?Confirmed ?Type multivitamin (Multiple Vitamins 1 tablet PO DAILY 07/15/22 09/16/24 History tablet) diphenhydramine HCl 25 mg tablet 25 mg PO TID PRN Congestion 07/16/22 09/16/24 History (Benadryl Allergy) oxycodone-acetaminophen 5 mg-325 1 tablet PO Q6H PRN pain #30 tabs 07/18/22 09/16/24 Rx mg tablet (Percocet) Patient hx anesthesia problems: none Family hx anesthesia problems: none Results Review: All pre-operative results and documents have been reviewed as part of the pre- operative evaluation. [facility] Past Medical History Medical History Encounter for postoperative care Nicotine dependence PVD (peripheral vascular disease) Hyperlipidemia Alcoholism Fracture of hip, right, closed Surgical History Surgical History History of neck surgery History of H/O carotid endarterectomy Family History Family History Other Family history of high cholesterol Heart disease History of aneurysm Social History Social History Smoking packs per day: 1 Smoking cigarettes per day: 20.0 Years smoked: 23 Smoking pack-years: 23.00 Smoking status: Current every day smoker Tobacco type: cigarettes Second hand tobacco smoke exposure: Yes Alcohol intake: current Drinks per week: 49 Alcohol use details: 07/16/22 - PT STATES 8 BEERS/WEEK VIA PHONE INTERVIEW Substance use: never Substance use type: does not use Living arrangements: with family Occupation/Education: occupation Additional occupation/education comments: [place] [employer] Gender identity (if verbalized by the patient): Female Sexual Orientation (if Verbalized by the Patient): Straight or Heterosexual Spiritual care concerns: No Anes - Eval Final PreProcedure Day of Procedure 09/28/24 07:23 Patient weight: normal Heart: regular rate and rhythm Lungs: decreased breath sounds Airway: Mallampati scale class II Neurological: alert and oriented Last oral intake: >/= 8 hours ASA classification: III Emergent: no Anesthetic plan: proceed Anesthesia type and monitoring: general GIVS and standard monitoring Results Review: All pre-operative results and documents have been reviewed as part of the pre- operative evaluation. Informed Consent: The patient's anesthetic plan and its attendant risks and benefits were discussed with the patient/family/POA. Questions were solicited and answers provided to the satisfaction of the patient/family/POA.
--- NOTE | 2024-09-28 07:54 | P.HP_ITS ---
H&P: HPI History of Present Illness Date/Time: 09/28/24 07:54 Chief Complaint: History of colon polyps Narrative: The patient has a history of colonic polyps, the last colonoscopy was approximately 3 years ago. Review of Systems Review of Systems: All systems reviewed & are unremarkable except as noted in HPI and below PMFSH Past Medical History Medical History Encounter for postoperative care Nicotine dependence PVD (peripheral vascular disease) Hyperlipidemia Alcoholism Fracture of hip, right, closed Surgical History Surgical History History of neck surgery History of H/O carotid endarterectomy Family History Family History Other Family history of high cholesterol Heart disease History of aneurysm Social History Social History Smoking packs per day: 1 Smoking cigarettes per day: 20.0 Years smoked: 23 Smoking pack-years: 23.00 Smoking status: Current every day smoker Tobacco type: cigarettes Second hand tobacco smoke exposure: Yes Alcohol intake: current Drinks per week: 49 Alcohol use details: 07/16/22 - PT STATES 8 BEERS/WEEK VIA PHONE INTERVIEW Substance use: never Substance use type: does not use Living arrangements: with family Occupation/Education: occupation Additional occupation/education comments: [place] [employer] Gender identity (if verbalized by the patient): Female Sexual Orientation (if Verbalized by the Patient): Straight or Heterosexual Spiritual care concerns: No Meds Home Medications and Allergies Home Medications ?Medication ?Instructions ?Recorded ?Confirmed ?Type multivitamin (Multiple Vitamins 1 tablet PO DAILY 07/15/22 09/16/24 History tablet) diphenhydramine HCl 25 mg tablet 25 mg PO TID PRN Congestion 07/16/22 09/16/24 History (Benadryl Allergy) oxycodone-acetaminophen 5 mg-325 1 tablet PO Q6H PRN pain #30 tabs 07/18/22 09/16/24 Rx mg tablet (Percocet) Allergies Allergy/AdvReac Type Severity Reaction Status Date / Time ibuprofen Allergy Intermediate RASH Verified 09/28/24 07:02 SWELLING latex Allergy Intermediate Rash Verified 09/28/24 07:02 rofecoxib Allergy Unknown Rash Verified 09/28/24 07:02 Vital Signs Vital Signs - 24 hr 09/28/24 07:03 Temperature 97.1 F L Pulse Rate 84 Respiratory Rate 18 Blood Pressure 126/81 Pulse Oximetry 96 Oxygen Delivery Room Air Exam Const: General: cooperative and healthy appearing Resp: Effort & Inspection: normal respiratory effort and able to speak in complete sentences Auscultation: clear to auscultation bilaterally Cardio: Rate: regular rate Rhythm: regular rhythm GI: Inspection: normal to inspection GI Palp: No No hepatosplenomegaly present Auscultation: normal bowel sounds Rectal Exam: deferred Skin: General skin exam: normal color Psych: Appearance: grossly normal Mental Status: mental status grossly normal Assessment and Plan Assessment and plan (1) History of colonic polyps: Code(s): Z86.0100 - Personal history of colon polyps, unspecified Status: Acute Assessment and Plan: The patient is deemed a good candidate for the procedure. Consent signed. Will proceed.
--- NOTE | 2024-09-28 08:19 | S_PTH ---
PATIENT: Maida López LOC: SARAH Spears#:[id number] AGE/SX: 69/F ROOM: RE09/28/[address]: Kendrick Melo MD : 1955 BED: DIS: 09/28/2024 SPEC #: [id number] RECD: 09/28/24 09:20 STATUS: ESPINOZA REQ #: [id number] COBY: 09/28/24 08:[address]: Kendrick Melo DEPT: [facility] Surgical RECD BY: Raya Pickering ENTERED: 09/28/24 09:21 SP TYPE: Surgical OTHR DR: Biju StarkeyMD Tissues: A - Colon Polypectomy B - Colon Polypectomy Procedures: Hematoxylin and Eosin Stain Gross and Microscopic Level 4
[2024-09-28 08:24] VITALS: BP 126/70; PULSE 62; RESP 17; O2SAT 100
[2024-09-28 08:34] VITALS: BP 141/82; PULSE 65; RESP 17; O2SAT 100
[2024-09-28 08:44] VITALS: BP 158/83; PULSE 66; RESP 15; O2SAT 100
== END 2024-09-28 08:58 | disposition home or self-care (01) ==
PROVIDERS: PCP Family Medicine; Referring Provider Family Medicine; Visit Provider Internal Medicine Gastroenterology
PROC: 0DJD8ZZ Inspection of Lower Intestinal Tract, Via Natural or Artificial Opening Endoscopic (ICD-10-PCS; CPT 45378; principal; 2024-09-28 08:00)
DX: Z12.11 Encounter for screening for malignant neoplasm of colon (principal); D12.5 Benign neoplasm of sigmoid colon; K63.5 Polyp of colon; K64.8 Other hemorrhoids; K57.30 Diverticulosis of large intestine without perforation or abscess without bleeding; E78.5 Hyperlipidemia, unspecified; I73.9 Peripheral vascular disease, unspecified; F17.210 Nicotine dependence, cigarettes, uncomplicated; Z79.891 Long term (current) use of opiate analgesic; Z98.890 Other specified postprocedural states; Z98.1 Arthrodesis status; Z82.49 Family history of ischemic heart disease and other diseases of the circulatory system
CPT/HCPCS: 45385; 88305; J2003; J2704; J7120

== ENCOUNTER 2024-11-28 09:35 | Outpatient (NON) | payer MEDICARE, SELFPAY ==
--- OUTSIDE RECORDS SUMMARY | 2000-10-12 04:00 | XMS_ITS | Continuity of Care Document ---
Author Organization [facility] Address [address] [place] [address] [place] [address] Phone Care Team Providers Care Cra Name Role Phone Angelito Chambers MD Unavailable Unavailable Advance Directives Directive Yes / No Effective Date File Name No Information Encounters Encounter Description Practice Location Reason(s) For Visit Diagnoses Date Provider Providers Copied on Encounter [facility], [id number] [place] [address] [address], [place], [place], [id number], [place] tel:[phone] [facility] No Information Reyes Eaton. [address] [place] [address], [facility] [address], [place], [address], [place]. tel:[phone] Referring Provider: Jamel Dunham, [facility] [address], [place], [address]. tel:[phone] Family History Family Member Type Diagnosis Age At Onset No Information Payers Payer name Insurance type Covered libertarian ID Authoriza tion(s) No Information Social History Type Description Quantity Date Captured Comments Sex Female Smoking Status No Information Chief Complaint And Reason For Visit No Information Reason For Referral Reason For Referral No Information History Of Present Illness Encounter Date Complaint History Of Prese nt Illness No Information Functional Status Date Functional Assessmen t No Information Instructions Date Instruction Additional Infor mation No Information Assessments Type Assessment Date No Information Patient Care Teams Name Effective Dates (start - stop) Status Members No Information
--- OUTSIDE RECORDS SUMMARY | 2024-11-28 08:30 | XMS_ITS | Encounter Summary ---
Author Organization [facility] Address [facility] [place] [address] Care Team Providers Care Language And Literature Division Chair Name Role Phone Biju Starkey MD Primary Care Provider Reason for Visit * Auth/Cert (Routine) Specialty Diagnoses / Procedures Referred By Maribel mann Referred To Contact Home Health Services Referral ID Status Reason Start Date Expiration Date Visits Re quested Visits Authorized [id number] 1 1 Encounter Details Date Type Department Care Team ([facility] st Contact Info) Description 11/28/2024 8:30 AM CDT Home Care Visit [facility] Home Care [facility] [address] [place] [address] Yasmine Cortez, RN SN HOME VISIT Social History Tobacco Use Types Packs/Day Years Used Date Smoking Tobacco: Former Cigarettes 0 11/04/2024 - 1994 Alcohol Use Standard Drinks/Week Comments Yes 40 (1 standard drink = 0.6 oz pu re alcohol) OASIS D0700: Social Isolation Answer Da te Recorded Frequency of experiencing loneliness or isolatio n Never 11/25/2024 OASIS A1250: Transportation Answer Date Recorded Lack of Transportation (Medical) No 11/25/2024 Lack of Transportation (Non-Medical) No 11/25/2024 Patient Unable or Declines to Respond No 11/25/2024 OASIS B1300: Health Literacy Answer Brady e Recorded Frequency of needing help to read materials from doctor or pharmacy Rarely 11/25/2024 AUDIT-C Answer Date Recorded Q1: How often do you have a drink containing alc ohol? 2-3 times a week 11/16/2024 Q2: How many drinks containi ng alcohol do you have on a typical day when you are drinking? 5 or 6 11/16/2024 Q3: How often do you have si x or more drinks on one occasion? Less than monthly 11/16/2024 Comments Unknown Sex and Gender Information Value Date Recorded Sex Assigned at Female 11/16/2024 6:12 PM CDT Legal Sex Female 12:08 PM CDT Gender Identity Female 11/16/2024 6:12 PM CDT Sexual Orientation Not on file Occupation Industry Job Start Date Job End Date [employer] Not on file Not on file Not on file documented as of this encounter Functional Status * Are you deaf or do you have serious difficulty hearing Answer Date of Assessment Author Status No 11/16/2024 6:05 PM Rock Garcia RN Active * Are you blind or do you have serious difficulty seeing, even when wearing glasses? Answer Date of Assessment Author Status No 11/16/2024 6:05 PM Rock Garcia RN Active * Do you have serious difficulty walking or climbing stairs? Answer Date of Assessment Author Status Yes 11/16/2024 6:05 PM Rock Garcia RN Active * Do you have difficulty dressing or bathing? Answer Date of Assessment Author Status No 11/16/2024 6:05 PM Rock Garcia RN Active * Because of a physical, mental, or emotional condition, do you have difficulty doing errands alone such as visiting a doctor's office or shopping? Answer Date of Assessment Author Status No 11/16/2024 6:05 PM Rock Garcia RN Active documented as of this encounter Mental Status * Because of a physical, mental, or emotional condition, do you have serious difficulty concentrating, remembering, or making decisions? Answer Entry Date Author Status No 11/16/2024 6:05 PM Rock Garcia RN Active documented in this encounter Plan of Treatment Upcoming Encounters Date Type Department Care Team (Late st Contact Info) Description 11/28/2024 12:15 PM CDT Home Care Visit [facility] Home Care [facility] [address] [place] [address] Richmond Boswell, OT [address] [place] [address] 12/01/2024 2:00 PM CDT Home Care Visit [facility] [address] [place] [address] Yahaira Greenwood, RADIOLOGY PHYSICIAN 12/05/2024 1:00 PM CDT Home Care Visit [facility] [address] [place] [address] Yasmine Cortez, RN 12/07/2024 12:00 PM CDT Home Care Visit [facility] [address] [place] [address] Yahaira Greenwood, RADIOLOGY PHYSICIAN 12/09/2024 10:00 AM CDT Home Care Visit [facility] [address] [place] [address] Yahaira Greenwood, RADIOLOGY PHYSICIAN 12/13/2024 9:00 AM CDT Home Care Visit [facility] [address] [place] [address] Yahaira Greenwood, RADIOLOGY PHYSICIAN 12/14/2024 1:00 PM CDT Home Care Visit [facility] [address] [place] [address] Yasmine Cortez, RN 12/15/2024 9:00 AM CDT Home Care Visit [facility] [address] [place] [address] Yahaira Greenwood, RADIOLOGY PHYSICIAN 12/20/2024 9:00 AM CDT Home Care Visit [facility] [address] [place] [address] Soumya Mitchell, PT [address] [place] [address] 12/22/2024 9:00 AM CDT Appointment [facility] [address] [place] [address] Soumya Mitchell, PT [address] [place] [address] documented as of this encounter Visit Diagnoses Not on filedocumented in this encounter Home Health Visit - Care Plan Visit Details Visit Type -SN - Home Visit Discipline -Shelter Problems Problem Description Start Date Status Goals Interve ntions Specimen Collection Disciplines: SN Management of specimen samples, including lab draws, stool, urine, & tissue. 11/25/2024 Active - 1 problem intervention scheduled/document ed in this visit Pain/Physical Discomfort Disciplines: SN Patient is experiencing pain/physical discomfort. 11/25/2024 Active 1 goal linked to scheduled/document ed intervention 1 goal intervention scheduled/document ed in this visit Collaboration of Care Disciplines: SN Collaboration for safe care. 11/25/2024 Active 3 goals linked to scheduled/document ed interventions 7 goal interventions scheduled/document ed in this visit Fall Precautions Disciplines: SN Patient at risk for falls or has had recent fall occurrence(s). 11/25/2024 Active 1 goal linked to scheduled/document ed intervention 3 goal interventions scheduled/document ed in this visit Postsurgical Care - Ortho Disciplines: SN Care following right hip and right femur and ORIF surgery. 11/25/2024 Active 2 goals linked to scheduled/document ed interventions 2 goal interventions scheduled/document ed in this visit Goals Goal Associated Problem Outcome Goal Met? Visit Notes Patient's pain/physical discomfort will be reduced to the level of patient's stated goal. Description: - Patient's pain/physical discomfort will be reduced to the level of patient's stated goal by 12/14/24. - Patient's desired pain goal is 0. - Patient will verbalize understanding of the pain management plan by 12/07/24. Pain/Physical Discomfort No Hosptial Readmission Reduction Description: Low Risk (0-6 risk factors). Patient's risk number is 5. Hospital Readmission will be avoided during the first 60-day episode of Homecare through frequency of assessment visits Collaboration of Care No Patient safety met through collaboration for safe care. Description: Clinicians will communicate patient care and safety needs during episode of care through 12/14/24. Collaboration of Care No Patient verbalizes understanding of medication regimen Description: Patient will verbalize understanding of medication regimen by 12/07/24. Patient will maintain compliance with medication regimen through 12/14/24. Collaboration of Care No Patient/caregiver maintains a safe environment. Description: STG: Patient and caregiver will verbalize and implement strategies to prevent falls by 12/07/24. LTG: Patient/caregiver will demonstrate ability to maintain a safe environment without injuries/falls by 12/14/24. Fall Precautions No Patient integumentary care needs met without signs/symptoms of complications Description: - Incision will heal without complications by 12/17/24. Patient and Caregiver will demonstrate wound care procedure and report complications by 12/07/24. - Control of drainage and prevention with early detection of infection for non-healing wounds. - Incision(s) will heal without signs of infection by 12/17/24. Postsurgical Care - Ortho No Patient/caregiver has adequate knowledge of follow-up care. Patient/caregiver understands potential complications, prevention, symptom management, and when to report adverse events. Description: - Patient and Caregiver will have adequate knowledge of follow-up care as evidenced by the ability to describe risk factors and required lifestyle adaptations including compliance with meds, diet, and rehabilitation program as appropriate through 5. - Patient and Caregiver verbalizes understanding of potential complications, prevention, symptom management, and when to report adverse events to home care agency and/or physician by 12/07/24. Postsurgical Care - Ortho No Interventions Intervention Associated Problem/Goal Status Variance Visit Notes Lab Collection Description: SN to obtain CBC with diff and CMP on 11/28/24 for dx: Periprosthetic fracture of proximal end of femur and Mold exposure. Fax results to Margret Fields NP ([facility] ID) . Problem:Specimen Collection Scheduled Assess Pain Description: -Perform comprehensive pain assessment of patient's level of pain using Numeric pain scale and assess effectiveness of current pain regimen. -Current medical management for pain is oxycodone, acetaminophen, ice, position changes and rest. If no changes or concerns check complete (see Pain Assessment). Problem:Pain/Physical Discomfort Goal:Patient's pain/physical discomfort will be reduced to the level of patient's stated goal. Scheduled Hospitalization Risk Description: Instruct Patient in minimizing hospitalization risk related to More than 1 Hospitalization or ED visit in past 12 months, History of Falls, Discharged from Hospital or SNF, More than 2 Secondary Diagnoses and ADL Assistance Needed. Problem:Collaboration of Care Goal:Hosptial Readmission Reduction Scheduled Assess Vital Signs Description: Obtain and record vital signs. BP: systolic blood pressure <90 or >160; diastolic blood pressure <60 or >90. Temperature: >100.5 F. Pulse: <60 or >100 bpm. Respiratory Rate: <12 or >28 /min. SPO2: <90%. May check SPO2 as needed for initial assessme nt or dyspnea. Problem:Collaboration of Care Goal:Patient safety met through collaboration for safe care. Scheduled Insurance Verification Description: Verify with patient/caregiver current insurance coverage. Problem:Collaboration of Care Goal:Patient safety met through collaboration for safe care. Scheduled Care Coordination Description: Clinician to review plan of care with patient/caregivers(s). Patient/Caregiver(s) agree(s) to plan of care and agrees to participate in care. Disciplines RN, PT and OT Problem:Collaboration of Care Goal:Patient safety met through collaboration for safe care. Scheduled Plan for Next Visit Description: Next visit plan summation Problem:Collaboration of Care Goal:Patient safety met through collaboration for safe care. Scheduled Medication Reconciliation Description: - Review and identify unnecessary therapeutic duplication. Each clinician to perform bottle check weekly on their first visit of the week. - Patient to take medications from pill bottles set up by Patient Problem:Collaboration of Care Goal:Patient verbalizes understanding of medication regimen Scheduled Medication Management Description: - Assess Patient ability to manage medications. Provide detailed instruction on proper administration and medication management. - Instruct Patient in medication administration, purpose, dosages, preparation, scheduling, side effects, food/drug & dr ug/drug interactions, storage, and potential complications. Problem:Collaboration of Care Goal:Patient verbalizes understanding of medication regimen Scheduled Report Falls to Provider within 24 Hours Description: Report witnessed or reported falls to provider within 24 hours. Problem:Fall Precautions Goal:Patient/caregiver maintains a safe environment. Scheduled Assess Appropriateness for Homecare Description: Assess Patient's ability to remain safe in current environment. Problem:Fall Precautions Goal:Patient/caregiver maintains a safe environment. Scheduled Teach Safe Use of Assistive Devices Description: Assess DME needs and appropriateness of current DME used walker. Problem:Fall Precautions Goal:Patient/caregiver maintains a safe environment. Scheduled Wound - Custom Protocol Description: Skilled nurse, Patient and Caregiver to perform dressing change to right hip incision wound. Dressing change to consist of: - Remove old dressing and discard per policy. - Cover with bordered island dressing. - Change dressing every other day and PRN for soiling or dislodgement. Problem:Postsurgical Care - Ortho Goal:Patient integumentary care needs met without signs/symptoms of complications Scheduled Incision Site Care Description: - Instruct Patient on incision care, signs/symptoms of infection, or complications including fever, increasing pain and swelling, drainage, redness. - Dressing change with bordered island dressing every other day. - Additional protocol: keep dry. Problem:Postsurgical Care - Ortho Goal:Patient/caregiver has adequate knowledge of follow-up care. Patient/caregiver understands potential complications, prevention, symptom management, and when to report adverse events. Scheduled documented in this encounter Care Teams Language And Literature Division Chair Relationship Specialty Start Date End Date Biju Starkey MD [address] [place] [address] PCP - General FAMILY PRACTICE 11/17/24 documented as of this encounter
--- OUTSIDE RECORDS SUMMARY | 2024-11-28 09:00 | XMS_ITS | Encounter Summary ---
Author Organization [facility] Address [address] [place] [address] Care Team Providers Care Forest Botany Instructor Name Role Phone Biju Starkey MD Primary Care Provider Reason for Visit * Auth/Cert (Routine) Specialty Diagnoses / Procedures Referred By Maribel mann Referred To Contact Home Health Services Referral ID Status Reason Start Date Expiration Date Visits Re quested Visits Authorized [id number] 1 1 Encounter Details Date Type Department Care Team (Latest Contact Info) Description 11/28/2024 9:00 AM CDT Home Care Visit [facility] [address], [place] [address] Soumya Mitchell, PT [address] [place], [place] [id number] PT INITIAL EVALUATION Social History Tobacco Use Types Packs/Day Years [...] on file documented as of this encounter Last Filed Vital Signs Vital Sign Reading Time Taken Comments Blood Pressure 144/80 11/28/2024 9:20 AM CDT Pulse 78 11/28/2024 9:20 AM CDT Temperature 36.8 C (98.3 F) 11/28/2024 9:20 AM CDT Respiratory Rate 18 11/28/2024 9:20 AM CDT Oxygen Saturation 93% 11/28/2024 9:20 AM CDT Inhaled Oxygen Concentration - - Weight - - Height - - Body Mass Index - - documented in this encounter Functional Status * Are you [...] Date Author Status No 11/16/2024 6:05 PM CDT Rock Jones, RN Active documented in this encounter Plan of Treatment Upcoming Encounters Date Type Department Care Team (Late st Contact Info) Description 11/28/2024 12:15 PM CDT Home Care Visit [facility] [address] [place] [address] Richmond Boswell, OT [address] [place] [address] 12/01/2024 2:00 PM CDT Home Care Visit [facility] [address] [place] [address] Yahaira Greenwood, ASSEMBLER [employer] 12/05/2024 1:00 PM CDT Home Care Visit [facility] [address] [place] [address] Yasmine Cortez, RN 12/07/2024 12:00 PM CDT Home Care Visit [facility] [address] [place] [address] Yahaira Greenwood, ASSEMBLER [employer] 12/09/2024 10:00 AM CDT Home Care Visit [facility] [address] [place] [address] Yahaira Greenwood, ASSEMBLER [employer] 12/13/2024 9:00 AM CDT Home Care Visit [facility] [address] [place] [address] Yahaira Greenwood, ASSEMBLER [employer] 12/14/2024 1:00 PM CDT Home Care Visit [facility] [address] [place] [address] Yasmine Cortez, RN 12/15/2024 9:00 AM CDT Home Care Visit [facility] [address] [place] [address] Yahaira Greenwood, ASSEMBLER [employer] 12/20/2024 9:00 AM CDT Home Care Visit [facility] [address] [place] [address] Soumya Mitchell, PT [address] [place] [address] 12/22/2024 9:00 AM CDT Appointment [facility] [address] [place] [address] Soumya Mitchell, PT [address] [place], [place] [id number] documented as of this encounter Visit Diagnoses Not on filedocumented in this encounter Home Health Visit - Care Plan Visit Details Visit Type -PT - Initial Pau luation Discipline -Physical Therapy Problems Problem Description Start Date Status Goals Interve ntions Pain/Physical Discomfort Disciplines: PT Patient is experiencing pain/physical discomfort. 11/28/2024 Active 1 goal linked to scheduled/documen mere intervention 2 goal interventions scheduled/documen mere in this visit Decreased Functional Mobility Disciplines: PT 11/28/2024 Active 1 goal linked to scheduled/documen mere intervention 1 problem intervention scheduled/documen mere in this visit 3 goal interventions scheduled/documen mere in this visit Collaboration of Care Disciplines: PT Collaboration for safe care. 11/28/2024 Active 3 goals linked to scheduled/documen mere interventions 6 goal interventions scheduled/documen mere in this visit Decreased Strength Disciplines: PT Decreased strength in lower extremities related to functional decline related to recent fall with R femur ORIF, R TABATHA revision, post-op infection, post-op anemia. 11/28/2024 Active 1 goal linked to scheduled/documen mere intervention 1 goal intervention scheduled/documen mere in this visit Balance Deficit Disciplines: PT Impaired standing and dynamic balance with potential safety problems related to functional decline related to recent fall with R femur ORIF, R TABATHA revision, post-op infection, post-op anemia. 11/28/2024 Active 1 goal linked to scheduled/documen mere intervention 1 goal intervention scheduled/documen mere in this visit Goals Goal Associated Problem Outcome Goal Met? Visit Notes Patient's pain/physical discomfort will be reduced to the level of patient's stated goal. Description: - Patient Maida will verbalize understanding of the pain management plan by 12/23/24. Pain/Physical Discomfort Progressing No Patient improves functional mobility Description: Patient to perform bed/furniture transfers independently and safely with 30 sec chair stand test completed 3x by 12/09/24. Patient to ambulate independently indoors/level surfaces with progression to device as appropriate for 200 ft to assist with medica l appointments with improved upright posture and equal step length/height bilat by 12/23/24. Patient to ascend/descend 3 steps with sba to enter/exit the home for medical appointments by 12/23/24 Decreased Functional Mobility Progressing No Patient verbalizes understanding of medication regimen Description: Patient Maida will verbalize understanding of medication regimen by 12/23/24. Collaboration of Care Met This Shift No Patient safety met through collaboration for safe care. Description: Clinicians will communicate patient care and safety needs during episode of care through 12/23/24. Patient to state posterior hip precuations and 3 fall prevention/home safety techniques for a decreased risk of falling by 12/09/24. Collaboration of Care Progressing No PT - Homebound Status Description: Patient meets requirements of homebound status as evidenced by inability to leave home alone, R hip/knee (2+/5-3-/5) weakness with decreased ability to transfer independently, fatigues easily, decreased activity tolerance, R hip pain with activity/altere d gait pattern, is taking narcotics for management of post op pain, and is at risk for falls with new use of walker. Collaboration of Care Met This Shift No Patient increases strength and/or functional mobility Description: Patient to report le hep compliance at least daily to bid for progressive strengthening by 12/09/24. Patient to demonstrate independence with LE HEP with increased LE MMT to 4/5-4+/5 to promote increased ambulation distances to 200 ft by 12/23/24 Decreased Strength Progressing No Patient improves balance and reduces fall risk Description: Patient to perform Tinetti test in or greater for decreased probability of falls with improved ability to negotiate stairs with sba by 12/23/24 Balance Deficit Progressing No Interventions Intervention Associated Problem/Goal Status Variance Visit Notes Instruct on Management of Pain Description: - Teach principles of pain management and involve Patient Evenlyn in developing pain control regimen. - Instructed on non-pharmacological pain reduction techniques-distracti on, imagery, relaxation, massage, to balance rest with activity, positioning -I nstructed patient on ice to R hip up to every hour for 15-20 min prn for pain. - Instructed Patient Maida on the cause(s) of pain. - Instructed Patient Maida to call Home Health for unsatisfactory pain relief. Patient verbalizes understanding. Problem:Pain/Physic al Discomfort Goal:Patient's pain/physical discomfort will be reduced to the level of patient's stated goal. Completed - Teach principles of pain management and involve Patient Evenlyn in developing pain control regimen. - Instructed on non-pharmacological pain reduction techniques-distract ion, imagery, relaxation, massage, to balance rest with activity, positioning -I nstructed patient on ice to R hip up to every hour for 15-20 min prn for pain. - Instructed Patient Maida on the cause(s) of pain. - Instructed Patient Maida to call Home Health for unsatisfactory pain relief. Patient verbalizes understanding. Assess Pain Description: -Perform comprehensive pain assessment of patient's level of pain using Numeric pain scale and assess effectiveness of current pain regimen. Problem:Pain/Physic al Discomfort Goal:Patient's pain/physical discomfort will be reduced to the level of patient's stated goal. Completed R hip pain is 4/10 at its best and up to 8/10 at its worst with patient taking pain medications as instructed and instructed on ice prn for pain Transfer Deficit/Training Description: - Therapeutic Exercise. - Transfer Training - Establish home exercise program. Problem:Decreased Functional Mobility Goal:Patient improves functional mobility Completed Patient is sba with with with sit to stand/stand to sit with R le extended(20 lb wt-bearing on R le) compared to L le and sba with bed-chair transfers with wwalker. Patient requires extended time to complete sit to stand and relies heavily on bilat ue f or sit to stand/stand to sit due to lack of R le force production. Verbal cues for slow position changes, to push up from surface with sit to stand, and reach back for surfaces with stand to sit. 30 sec chair stand test with bilat ue support 1x. Gait Deficit Description: Gait training with wwalker. 20 lb R le wt-bearing foot flat. Problem:Decreased Functional Mobility Goal:Patient improves functional mobility Completed Patient ambulated 20 ft with wwalker with sba/cga indoors on level surface. Patient ambulates with head down posture, decreased alma rosa, decreased R le stance phase with decreased L step length/maintains R le 20 lb wt-bearing status, and lacks R hip/knee flex during swing phase with shuffling gait. Verbal cues for 20 lb wt-bearing R le, upright posture, and increased R hip/knee flex during swing phase to assist with normalized gait pattern. Seated rest break after 20 ft for fatigue and states she contin ues to feel nauseated with no breakfast prior to therapy/nursing visit. Instructed patient to use wwalker at all times and short frequent walks at least daily to bid for cardiovascular benefits with patient verbalizing understanding. Instruct Bed Mobility Description: Instruct Patient Maida in bed mobility techniques. Problem:Decreased Functional Mobility Goal:Patient improves functional mobility Scheduled with variance Defer to next visit Patient currently sleeping in recliner. Will address bed mobility at a later date. Instruct on stair climbing Description: Instruct in safe stair negotiation to enter/exit the home Problem:Decreased Functional Mobility Scheduled with variance Defer to next visit Will address at a later date. Medication Reconciliation Description: Clinician to review medications with patient/caregiver at each visit and report changes to human services case manager and/or supervising therapist. Problem:Collaborati on of Care Goal:Patient verbalizes understanding of medication regimen Completed Medication reconciliation performed without weekly bottle check-nursing currently seeing patient. No medication changes this visit with medication list in patient's home. Assess Vital Signs Description: Obtain and record vital signs. Report to MD if vitals are out of parameters. BP: systolic blood pressure <90 or >160; diastolic blood pressure <60 or >90. Temperature: >100.5 F. Pulse: <60 or >100 bpm. Respiratory Rate: <12 or >28 /min. SPO2: <90% . May check SPO2 as needed for initial assessment or dyspnea. Problem:Collaborati on of Care Goal:Patient safety met through collaboration for safe care. Completed All vitals wnl with vitals obtained prior to treatment by RN. Instruct Home Safety Description: Instruct patient on strategies/modificat ions to home environment and posterior hip precautions. Patient up as tolerated with walker or lesser device or no device as directed. Problem:Collaborati on of Care Goal:Patient safety met through collaboration for safe care. Completed Instructed patient on home safety and fall prevention techniques per home safety/fall prevention handout in soc packet including 1. Keep all pathways clear. 2. Remove or tape down throw rugs. 3. Wear well fitting shoes when transferring or ambulating. 4. Use assist device when ambulating. 5. Night light at night in event of being up to toilet in night. 6. Change position slowly. 7. Stand for one or two minutes before walking. 8. All electrical cords should be along slater and not running across pathways. 9. Non slip mats in bathroom. 10. Keep phone close at all times. Instructed patient to notify md/agency if increased drainage/redness/pa in/temperature of 100.5 or greater noted to R hip. Instructed patient on hep bid for strengthening/rom, long walks i n home with wwalker for cardiovascular benefits, to change positions every 1-2 hours for skin intergrity, elevate bilat le throughout day to assist with edema management, drink 6-8 glasses of fluids daily for adequate hydration, and to increase activity in home as tolerated. Instructed patient on posterior hip precautions with no hip internal rotation, no hip adduction, and no hip flex greater than 90 deg. Patient verbalizes good understanding of all instructions. Plan for Next Visit Description: Next visit plan summation Problem:Collaborati on of Care Goal:Patient safety met through collaboration for safe care. Completed Patient/Caregiver notified that next skilled PT visit will be on later in week of 11/28/24. PLAN: To progress patient towards maximal level of function utilizing LE strengthening exercises, progressing gait distances R le 20 lb wt-bearing, facilitating im proved balance strategies, normalize gait pattern, instruction on home safety and fall prevention, instruction on management of pain/swelling, and facilitating improved transfers. Patient Maida aware of and agreeable to plan. Advised to call Agency for non-emergent questions/concerns with patient verbalizing understanding. Care Coordination Description: Clinician to review plan of care with patient/caregivers(s ). Patient/Caregiver(s) agree(s) to plan of care and agrees to participate in care. Disciplines RN, PT and OT, PCP Dr Starkey and Specialty Provider Dr Xiong(ortho) Problem:Collaborati on of Care Goal:Patient safety met through collaboration for safe care. Completed Clinician to review care plan with patient/caregivers. Patient/caregivers agree to plan of care, discharge plan and agree to participate in care. Plan Towards Discharge Description: Document Patient Maida progress towards discharge. Problem:Collaborati on of Care Goal:Patient safety met through collaboration for safe care. Defer to next visit Evaluation visit. Decreased Strength Description: - Therapeutic exercise. - Establish home exercise program. Problem:Decreased Strength Goal:Patient increases strength and/or functional mobility Completed Initiated le hep with patient completing 1 set of 10 on R le supine hep per protocol: ankle pumps, quad sets, glut sets, heel slides with hip flex less than 90 deg, hip abd, and seated ext with le hep handout in home. Verbal cues and demonstration for sl ow/controlled movement, full rom to maximize strength, alignment, and proper technique. Patient rated 6/10 with pain to R hip with ther ex with seated rest break for fatigue. Instructed patient to perform le hep at least bid for strengthening with patien t verbalizing understanding Balance Deficit Description: - Therapeutic exercise. - Establish or upgrade home program. - Implement balance training. Problem:Balance Deficit Goal:Patient improves balance and reduces fall risk Completed Patient is at risk for falls per Tinetti test with recent fall resulting in R femur fracture. documented in this encounter Care Teams Forest Botany Instructor Relationship Specialty Start Date End Date Biju Starkey MD [address] [place] [address] PCP - General FAMILY PRACTICE 11/17/24 documented as of this encounter
[2024-11-28 09:56] LABS: Hematocrit 26.2 % (35.0-42.0); Hemoglobin 8.2 g/dL (11.7-13.8); Immature Granulocyte Percent A 0.6 % (0.0-0.0); Lymphocytes Absolute Auto 0.87 K/mm3 (1.10-4.50); Mean Corpuscular HGB Conc 31.3 g/dL (32-36); Mean Corpuscular Hemoglobin 31.2 pg (27.0-31.0); Mean Corpuscular Volume 99.6 fL (78.0-102.0); Nucleated Red Blood Cells Absolute Auto 0.00 K/mm3 (0.00-0.00); Nucleated Red Blood Cells Perc 0.0 % (0-0.0); Platelet Count Result 367 K/mm3 (150-420); Red Blood Count 2.63 M/mm3 (4.20-5.40); White Blood Count 6.3 K/mm3 (4.8-10.8)
[2024-11-28 10:07] LABS: Alanine Aminotransferase 24 U/L (6-35); Albumin Level 3.8 g/dL (3.5-5.1); Alkaline Phosphatase 115 U/L (38-126); Anion Gap 8 mmol/L (4-12); Aspartate Amino Transferase 39 U/L (14-36); Bilirubin,Total 0.9 mg/dL (0.2-1.3); Blood Urea Nitrogen 11 mg/dL (7-17); Calcium 9.6 mg/dL (8.4-10.2); Carbon Dioxide 28 mmol/L (22-30); Chloride 100 mmol/L (98-107); Estimated Glomerular Filt Rate > 60; Glucose 93 mg/dL (65-110); Osmolality Calculated 281 mOsm/kg (285-295); Potassium 4.6 mmol/L (3.4-5.0); Sodium 136 mmol/L (137-145); Total Protein 7.4 g/dL (6.3-8.2)
--- OUTSIDE RECORDS SUMMARY | 2024-11-28 10:37 | XMS_ITS | Clinical Summary ---
Author Organization [facility] Address [address] [place] [address] Care Team Providers Care Mobile Equipment Mechanic Name Role Phone Yocasta Keating DO Primary Care Provider [phone] Source Comments [facility],non-owned Affiliates and Associated Physician Practices is amultiple site organization consisting of ambulatory clinics and hospital sitesin [place], [place], [place] and [place]. This disclosure is being madepursuant to the Care Everywhere program and may not contain all information available regarding this patient. Last updated 17.[facility] [employer] Social History Tobacco Use Types Packs/Day Years [...] 08/16/2005 ZOSTER VACCINE (1 of 2) 08/16/2005 DEPRESSION SCREENING 03/09/2024 MEDICARE AWV CALENDAR YEAR 2024 COVID-19 VACCINE (2 - 2024-2 6 season) 2024 06/14/2020 INFLUENZA VACCINE (#1) 2024 01/18/2015 Respiratory Syncytial [...] patient's age to complete this topic Insurance [facility] MANAGED MEDICARE ADV [facility] MANAGED MEDICARE ADV SELF PAY NO INSURANCE Member Subscriber Plan / Payer (Ef fective for All Dates) Name:Chloé López Member ID:Not on file Relation to Subscriber:Not on file Name:CHLOÉ LÓPEZ Subscriber ID:Not on file (Home) Address: [address] [place] [phone] Payer ID:Not on file Group ID:Not on file Type:Self Pay Address: [place], [place] Care Teams Mobile Equipment Mechanic Relationship Specialty Start Date End Date Yocasta Keating DO [address] [place] [phone] PCP - General Family Medicine 01/05/23
--- OUTSIDE RECORDS SUMMARY | 2024-11-28 10:38 | XMS_ITS | Clinical Summary ---
Author Organization [facility] Address [address] [address] Care Team Providers Care Oncology Admin Name Role Phone Biju Starkey MD Primary [...] Description 09/07/2024 1:15 PM CDT Office Visit [address] [phone] Facundo Garcia MD Hyponatremia (Primary Dx) from Last 3 Months Immunizations Immunization Administration [...] st Contact Info) Description 03/13/2025 1:30 PM STARS ANALYTICAL LEAD Office Visit [facility] [address] [place] [address] Facundo Garcia MD [address] [place] [address] Health Maintenance Due Date Last Done Comments Breast Cancer Screening 1955 Colorectal Cancer Screening: Annual FOBT 08/16/2004 Colorectal Cancer Screening: Sigmoidoscopy 08/16/2004 Influenza Vaccine (#1) 2024 3, 11/20/2021, 01/18/2015 Colorectal Cancer Screening: Colonoscopy 12/18/2030 12/18/2020 Pneumococcal Vaccine: 50+ Years Completed 08/28/2020, 01/18/2015, 11/05/2011 Hepatitis B Vaccine Aged Out No longe r eligible based on patient's age to complete this topic Insurance [facility] Medicare Advance Directives Documents on File Type Date Recorded 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
--- OUTSIDE RECORDS SUMMARY | 2024-11-28 10:38 | XMS_ITS | Clinical Summary ---
Author Organization [facility] Address [address] [place] [address] Care Team Providers Care Production Control Manager Name Role Phone Biju Starkey MD Primary Care Provider Allergies Active Allergy Reactions Criticality Noted Date Comments Ibuprofen Hives 11/16/2024 Latex Rash Low 11/16/2024 Medications acetaminophen (TYLENOL) 500 MG tabletIndicati ons:Pain Take 2 tablets by mouth every 6 (six) hours. Indications: Pain Active Cholecalcifero l 50 MCG (2000 UT) TabIndications :Supplement Take 1,000 Units by mouth daily. Indications: Supplement Active Cyanocobalamin 2000 MCG TabIndications :Supplement Take 1,000 mcg by mouth daily. Indications: Supplement Active diphenhydrAMIN E (BENADRYL) 25 MG capsuleIndicat ions:Itching Take 1 capsule by mouth daily as needed for Itching. Indications: Itching Active ezetimibe (ZETIA) 10 MG tabletIndicati ons:Cholestero l Take 1 tablet by mouth daily. Indications: Cholesterol Active latanoprost (XALATAN) 0.005 % ophthalmic solutionIndica tions:Glaucoma Place 1 drop into both eyes daily. Indications: Glaucoma Active multi vitamin/minera ls (THERA-M ENHANCED) tabletIndicati ons:Supplement Take 2 tablets by mouth daily. Indications: Supplement Active oxyCODONE immediate release (ROXICODONE) 5 MG immediate release tabletIndicati ons:Pain Take 1 tablet by mouth every 4 (four) hours as needed for Pain. Indications: Pain Active Senna (SENOKOT) 8.6 MG tabletIndicati ons:Constipati on Take 1 tablet by mouth 2 (two) times daily as needed for Constipation. Indications: Constipation 11/17/19 25 Active triamcinolone (KENALOG) 0.1 % creamIndicatio ns:Feet Apply topically 2 (two) times daily as needed. Indications: Feet Active apixaban (ELIQUIS) 2.5 MG tabletIndicati ons:Deep Vein Thrombosis Prophylaxis Take 1 tablet (2.5 mg total) by mouth 2 (two) times daily. Indications: Treatment to Prevent Deep Vein Thrombosis 60 tablet 11/24/19 25 Active genteal tears (ARTIFICIAL TEARS) 0.1-0.2-0.3 % ophthalmic solutionIndica tions:dry eye [The details of the medication are not available because there are pending changes by a home health clinician.] 15 mL 11/24/19 25 Active Additional Information Patient taking differently:1 drop Both Eyes As needed,Indications: Dry Eyes, Reported on 11/25/2024 hydrocerin cream (EUCERIN) CreamIndicatio ns:dry skin Apply 1 each topically as needed. Indications: dry skin 113 g 11/24/19 25 Active lidocaine 4 % patchIndicatio ns:pain Place 2 patches onto the skin daily. Indications: pain Remove & Discard patch within 12 hours or as directed by MD 30 patch 11/25/19 25 Active posaconazole (NOXAFIL) 100 MG tabletIndicati ons:Cellulitis [The details of the medication are not available because there are pending changes by a home health clinician.] 33 tablet 11/25/19 25 2024 Active Additional Information Patient taking differently:300 mg Oral Daily,Indications: Cellulitis, Mold Exposure, Reported on 11/25/2024 cefadroxil (DURICEF) 500 MG capsuleIndicat ions:Celluliti s [The details of the medication are not available because there are pending changes by a home health clinician.] 22 capsule 11/24/19 25 2024 Active Additional Information Patient taking differently:500 mg Oral 2 times daily,Indications: Cellulitis, Mold Exposure, Reported on 11/25/2024 docusate sodium (COLACE) 100 MG capsuleIndicat ions:Constipat ion Take 100 mg by mouth daily. Patient reported taking Indications: Constipation 11/26/19 Active aspirin 81 MG chewable tablet Chew 1 tablet (81 mg total) by mouth 2 (two) times a day. 2024 Discontinued(S top Taking at Discharge) cefadroxil (DURICEF) 500 MG capsule Take 1 capsule (500 mg total) by mouth 2 (two) times daily. Take for 5 days. 2024 Discontinued(S top Taking at Discharge) gabapentin (NEURONTIN) 400 MG capsuleIndicat ions:Nerve Pain Take 1 capsule by mouth 3 (three) times daily. Indications: Nerve Pain 2024 Discontinued(O rdering Physician) hydrocortisone 2.5 % cream Apply topically 2 (two) times daily. 2024 Discontinued(S top Taking at Discharge) methocarbamol (ROBAXIN) 750 MG Tab Take 1 tablet (750 mg total) by mouth every 6 (six) hours. 2024 Discontinued(O rdering Physician) posaconazole (NOXAFIL) 100 MG tablet Take 3 tablets (300 mg total) by mouth daily. 2024 Discontinued(S top Taking at Discharge) ramelteon (ROZEREM) 8 MG tablet Take 1 tablet (8 mg total) by mouth nightly as needed for Sleep. 2024 Discontinued(O rdering Physician) cefadroxil (DURICEF) 500 MG capsuleIndicat ions:Celluliti s Take 1 capsule (500 mg total) by mouth 2 (two) times daily for 11 days. Indications: Infection Under the Skin 22 capsule 11/22/19 25 2024 Discontinued posaconazole (NOXAFIL) 100 MG tabletIndicati ons:Cellulitis Take 3 tablets (300 mg total) by mouth daily for 11 days. 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 [place] [address] [place] [address] Soumya Mitchell, PT PT INITIAL EVALUATION 11/28/2024 8:30 AM CDT Home Care Visit [facility] [address] [place] [address] Yasmine Cortez, RN SN HOME VISIT 11/25/2024 8:45 AM CDT Home Care Visit [facility] [address] [place] [address] Yasmine Cortez, RN SN OASIS START OF CARE 11/25/2024 Plan of Care Documentation [facility] [place] [address] [place] [address] 11/24/2024 Telephone [facility] [address] [facility] [place] [address] Mariama Montes NP Medication (Eliquis) 11/16/2024 5:48 PM CDT - 11/23/2024 2:39 PM CDT Hospital Encounter [facility] [address] [place] [address] Pat Ingram MD McHale, Sara A, MD Discharge Disposition: Home with Home Health Care 11/16/2024 Travel 11/09/2024 Telephone [facility] [address] [place] [address] Katty Ferrera RN Referral (Swing bed referral to [facility] from [facility]/) from Last 3 Months Family History Medical History Relation Comments No Known Problems Brother 1 AIDS Brother 2 Kidney failure Brother 2 liver failure Brother 2 Congenital heart disease Brother 3 Heart Father Hypertension Father Aortic aneurysm Mother No Known Problems Sister 2 Congenital heart disease Sister 3 Train accident Son Relation Status Comments Brother 1 Alive Brother 2 (Age 50) Brother 3 (Age 5) Father (Age 54) Mother (Age 73) Sister 1 Alive Sister 2 Alive Sister 3 Alive Son Social History Tobacco Use Types Packs/Day Years [...] file Not on file Not on file Last Filed Vital Signs Vital Sign Reading Time Taken Comments Blood Pressure 144/80 11/28/2024 9:20 AM CDT Pulse 78 11/28/2024 9:20 AM CDT Temperature 36.8 C (98.3 F) 11/28/2024 9:20 AM CDT Respiratory Rate 18 11/28/2024 9:20 AM CDT Oxygen Saturation 93% 11/28/2024 9:20 AM CDT Inhaled Oxygen Concentration - - Weight 60 kg (132 lb 3.2 oz) 11/23/2024 6:01 AM CDT Height 174 cm (5' 8.5) 11/16/2024 6:11 PM CDT Body Mass Index 19.81 11/16/2024 6:11 PM CDT Plan of Treatment Upcoming Encounters Date Type Department Care Team (Late st Contact Info) Description 11/28/2024 12:15 PM CDT Home Care Visit [facility] [address] [place] [address] Richmond Boswell, OT [address] [place] [address] 12/01/2024 2:00 PM CDT Home Care Visit [place] [address] [place] [address] Yahaira Greenwood, CLIENT ONBOARDING ANALYST 12/05/2024 1:00 PM CDT Home Care Visit [facility] [address] [place] [address] Yasmine Cortez, RN 12/07/2024 12:00 PM CDT Home Care Visit [facility] [place] [address] [place] [address] Yahaira Greenwood, CLIENT ONBOARDING ANALYST 12/09/2024 10:00 AM CDT Home Care Visit [place] [address] [place] [address] Yahaira Greenwood, CLIENT ONBOARDING ANALYST 12/13/2024 9:00 AM CDT Home Care Visit [place] [address] [place] [address] Yahaira Greenwood, CLIENT ONBOARDING ANALYST 12/14/2024 1:00 PM CDT Home Care Visit [place] [address] [place] [address] Yasmine Cortez, RN 12/15/2024 9:00 AM CDT Home Care Visit [place] [address] [place] [address] Yahaira Greenwood, CLIENT ONBOARDING ANALYST 12/20/2024 9:00 AM CDT Home Care Visit [facility] [place] [address] [place] [address] Soumya Mitchell, PT [address] [place] [address] 12/22/2024 9:00 AM CDT Appointment [place] [address] [place] [address] Soumya Mitchell, PT [address] [place] [address] Health Maintenance Due Date Last Done Comments Colorectal Cancer Screening Colonoscopy (10 Years) 1955 Zoster Vaccines (1 of 2) 08/16/2005 Annual Medicare Wellness Visit 08/16/2020 Mammogram Screening 09/13/2022 09/13/2020 COVID-19 Vaccine (2 - 2024-2 6 season) 2024 06/14/2020 DTaP, Tdap and Td Vaccines ( 2 - Td or Tdap) 06/29/2025 06/30/2015, 08/07/2001 RSV Immunization or 60+ Years (1 - 1-dose 75+ series) 08/16/2030 Pneumococcal Vaccine: 50+ Years Completed 08/28/2020, 01/18/2015, 11/05/2011 Dexa Scan (General) Completed 12/24/2022, 12/24/2022, 09/13/2020 Hepatitis C Completed 11/14/2024 Meningococcal B Vaccine Aged Out No l onger eligible based on patient's age to complete this topic Meningococcal Vaccine Aged Out No velvet brit eligible based on patient's age to complete this topic RSV Immunizations Under 20 Months Aged Out No longer eligible b ased on patient's age to complete this topic Interventions Community Resource Recommendations Community Resource Services Recommended Domains Addressed Status Status Reason/Outcome Date/Time [facility] - Medically Assisted Opiate Recovery Program Substance Use Counseling, Substance Use Services Alcohol Use, Tobacco Use Recommended 11/17/2024 4:03 PM CDT [facility] Outpatient Counseling Services Substance Use Counseling Alcohol Use, Tobacco Use Recommended 11/17/2024 4:03 PM CDT from Last 12 Months Procedures Procedure Name Priority Date/Time Associated Diagnosis Comments HEMOGLOBIN AND HEMATOCRIT Routine 11/19/2024 10:47 AM CDT COMPREHENSIVE METABOLIC PANEL Routine 11/18/2024 5:27 AM CDT CBC W/DIFF AUTOMATED Routine 11/18/2024 5:27 AM CDT from Last 3 Months Results * (ABNORMAL) HEMOGLOBIN AND HEMATOCRIT (11/19/2024 10:47 AM CDT) HGB 7.5(L) 12.0 - 16.0 G/DL 11/19/2024 10:52 AM CDT [facility] HCT 23.0(L) 36.0 - 47.0 % 11/19/2024 10:52 AM CDT [facility] 11/19/2024 10:4 7 AM CDT Mary Castellano [facility] Final Res ult [facility] [address] [email or web address] [address], * (ABNORMAL) COMPREHENSIVE METABOLIC PANEL (11/18/2024 5:27 AM CDT) SODIUM S/P/B 134(L) 136 - 145 MMOL/L 11/18/2024 5:48 AM CDT [facility] POTASSIUM S/P/B 4.3 3.5 - 5.1 MMOL/L 11/18/2024 5:48 AM CDT [facility] CHLORIDE S/P/B 100 98 - 107 MMOL/L 11/18/2024 5:48 AM CDT [facility] CO2 27.1 21.0 - 32.0 MMOL/L 11/18/2024 5:48 AM CDT [facility] GLUCOSE 104(H) 70 - 99 MG/DL 11/18/2024 5:48 AM CDT [facility] Comment: FASTING GLUCOSE 100 TO 125 MG/DL IS CONSISTENT WITH IMPAIRED FASTING GLUCOSE. FASTING GLUCOSE >125 MG/DL IS CONSISTENT WITH DIABETES. RANDOM GLUCOSE >200 MG/DL WITH HYPERGLYCEMIC SYMPTOMS IS CONSISTENT WITH DIABETES. PER ADA GUIDELINES BUN 17 6 - 24 MG/DL 11/18/2024 5:48 AM CDT [facility] CREATININE S/P/B 0.87 0.55 - 1.02 MG/DL 11/18/2024 5:48 AM CDT [facility] CALCIUM S/P/B 9.4 8.4 - 10.5 MG/DL 11/18/2024 5:48 AM T [facility] BILIRUBIN TOTAL S/P/B 0.3 0.2 - 1.0 MG/DL 11/18/2024 5:48 AM [facility] Comment: THIS ASSAY IS NOT RECOMMENDED FOR PATIENTS UNDERGOING TREATMENT WITH ELTROMBOPAG DUE TO THE POTENTIAL FOR FALSELY ELEVATED RESULTS. ALKALINE PHOSPHATASE S/P/B 75 55 - 142 U/L 11/18/2024 5:48 AM [facility] AST 32 15 - 37 U/L 11/18/2024 5:48 AM [facility] ALT 17 14 - 59 U/L 11/18/2024 5:48 AM [facility] TOTAL PROTEIN S/P/B 6.2(L) 6.4 - 8.2 G/DL 11/18/2024 5:48 AM [facility] ALBUMIN S/P/B 2.5(L) 3.4 - 5.0 G/DL 11/18/2024 5:48 AM [facility] ANION GAP 6.9 5.0 - 15.0 MMOL/L 11/18/2024 5:48 AM [facility] OSMOLALITY (CALC) 280 MOSM/KG 025 5:48 AM [facility] Comment:REFERENCE RANGE NOT ESTABLISHED GFR ESTIMATE 72(L) >89 ML/MIN/1. 73 M2 11/18/2024 5:48 AM [facility] GFR NOTES GFR REFERENCE S: 11/18/2024 5:48 AM [facility] Comment: THE ESTIMATED GFR IS CALCULATED USING THE 2020 CKD-EPI EQUATION. THE FOLLOWING CATEGORIES FOR GRADING RENAL FUNCTION ARE RECOMMENDED BY THE INTERNATIONAL SOCIETY OF NEPHROLOGY (KDIGO 2012 CLINICAL PRACTICE GUIDELINE). G1,NORMAL OR HIGH: >89 ml/min/1.73 m2 G2,MILDLY DECREASED: 60-89 ml/min/1.73 m2 G3A,MILDLY TO MODERATELY DECREASED: 45-59 ml/min/1.73 m2 G3B,MODERATELY TO SEVERELY DECREASED: 30-44 ml/min/1.73 m2 G4,SEVERELY DECREASED: 15-29 ml/min/1.73 m2 G5,KIDNEY FAILURE: <15 ml/min/1.73 m2 11/18/2024 5:27 AM CDT Mary Castellano [facility] Final Res ult [facility] [address] [email or web address] [address], * (ABNORMAL) CBC W/DIFF AUTOMATED (11/18/2024 5:27 AM CDT) WBC 10.42 4.00 - 10.80 x10'3/uL 11/18/2024 5:32 AM CDT [facility] RBC 2.40(L) 4.10 - 5.40 x10'6/uL 11/18/2024 5:32 AM CDT [facility] HGB 7.6(L) 12.0 - 16.0 G/DL 11/18/2024 5:32 AM CDT [facility] HCT 22.5(L) 36.0 - 47.0 % 11/18/2024 5:32 AM CDT [facility] MCV 93.8 78.0 - 100.0 FL 11/18/2024 5:32 AM CDT [facility] MCH 31.7(H) 27.0 - 31.0 PG 11/18/2024 5:32 AM CDT [facility] MCHC 33.8 33.0 - 36.0 G/DL 11/18/2024 5:32 AM CDT [facility] RDW 13.9 11.5 - 14.5 % 11/18/2024 5:32 AM CDT [facility] PLT 464(H) 150 - 350 x10'3/uL 11/18/2024 5:32 AM CDT [facility] MPV 8.8 7.4 - 10.4 FL 11/18/2024 5:32 AM CDT [facility] CBC COMMENT NORMAL REFERENCE RANGE NOT ESTABLISHED FOR THE PROPORTIONAL LEUKOCYTE DIFFERENTIAL. 11/18/2024 5:32 AM CDT [facility] NEUTROPHILS % 78.0 % 11/18/2024 5:32 AM CDT [facility] LYMPHOCYTES % 10.0 % 11/18/2024 5:32 AM CDT [facility] MONOCYTES % 6.9 % 11/18/2024 5:32 AM CDT [facility] EOSINOPHILS % 3.8 % 11/18/2024 5:32 AM CDT [facility] BASOPHILS % 0.5 % 11/18/2024 5:32 AM CDT [facility] IMMATURE GRANS % 0.8 % 11/19/19 5:32 AM CDT [facility] NRBC % 0.0 % 11/18/2024 5:32 AM CDT [facility] ABS. NEUTROPHILS 8.13 1.60 - 8.30 x10'3/uL 11/18/2024 5:32 AM CDT [facility] ABS. LYMPHOCYTES 1.04 0.80 - 4.70 x10'3/uL 11/18/2024 5:32 AM CDT [facility] ABS. MONOCYTES 0.72 0.00 - 1.50 x10'3/uL 11/18/2024 5:32 AM CDT [facility] ABS. EOSINOPHILS 0.40 0.00 - 0.40 x10'3/uL 11/18/2024 5:32 AM CDT [facility] ABS. BASOPHILS 0.05 0.00 - 0.20 x10'3/uL 11/18/2024 5:32 AM CDT [facility] ABS. IMMATURE GRANULOCYTES 0.08(H) 0.00 - 0.03 x10'3/uL 11/18/2024 5:32 AM CDT [facility] ABS. NUCLEATED RBC'S 0.00 0.00 - 0.01 x10'3/uL 11/18/2024 5:32 AM CDT [facility] 11/18/2024 5:27 AM CDT [facility] Final Res ult [facility] [address] [email or web address] [address], from Last 3 Months Insurance [facility] Advance Directives * Full Code (Latest Code Status on File) Date Activated Date Inactivated Comments 11/28/2024 7:00 AM * Full Code Date Activated Date Inactivated Comments 11/16/2024 6:41 PM 11/23/2024 4:39 PM Care Teams Production Control Manager Relationship Specialty Start Date End Date Biju Starkey MD [address] [place] [address] [address] [facility] [address] [place] [address] PCP - General FAMILY PRACTICE 11/17/24
== END 2024-11-28 09:36 | disposition home or self-care (01) ==
LOC: CHSLAB 09:42
PROVIDERS: PCP Family Medicine
DX: Z77.120 Contact with and (suspected) exposure to mold (toxic) (principal); M97.01XA Periprosthetic fracture around internal prosthetic right hip joint, initial encounter
CPT/HCPCS: 36415; 80053; 85025

== ENCOUNTER 2025-02-11 19:40 | Outpatient (CLI) | payer MEDICARE, SELFPAY ==
--- OUTSIDE RECORDS SUMMARY | 2025-02-11 19:44 | XMS_ITS | Clinical Summary ---
Author Organization [facility] Address [address] [place] [address] Care Team Providers Care White Sugar Supervisor Name Role Phone Biju Starkey MD Primary Care Provider Allergies Active Allergy Reactions Criticality Noted Date Comments Ibuprofen Hives 11/16/2024 Latex Rash Low 11/16/2024 Medications acetaminophen (TYLENOL) 500 MG tabletIndicatio ns:Pain Take 2 tablets by mouth every 6 (six) hours. Indications: Pain Active Cholecalciferol 50 MCG (2000 UT) TabIndications: Supplement Take 1,000 Units by mouth daily. Indications: Supplement Active Cyanocobalamin 2000 MCG TabIndications: Supplement Take 1,000 mcg by mouth daily. Indications: Supplement Active diphenhydrAMINE (BENADRYL) 25 MG capsuleIndicati ons:Itching Take 1 capsule by mouth daily as needed for Itching. Indications: Itching Active ezetimibe (ZETIA) 10 MG tabletIndicatio ns:Cholesterol Take 1 tablet by mouth daily. Indications: Cholesterol Active latanoprost (XALATAN) 0.005 % ophthalmic solutionIndicat ions:Glaucoma Place 1 drop into both eyes daily. Indications: Glaucoma Active multi vitamin/mineral s (THERA-M ENHANCED) tabletIndicatio ns:Supplement Take 2 tablets by mouth daily. Indications: Supplement Active oxyCODONE immediate release (ROXICODONE) 5 MG immediate release tabletIndicatio ns:Pain Take 1 tablet by mouth every 4 (four) hours as needed for Pain. Indications: Pain Active triamcinolone (KENALOG) 0.1 % creamIndication s:Feet Apply topically 2 (two) times daily as needed. Indications: Feet Active apixaban (ELIQUIS) 2.5 MG tabletIndicatio ns:Deep Vein Thrombosis Prophylaxis Take 1 tablet (2.5 mg total) by mouth 2 (two) times daily. Indications: Treatment to Prevent Deep Vein Thrombosis 60 tablet 5 Active genteal tears (ARTIFICIAL TEARS) 0.1-0.2-0.3 % ophthalmic solutionIndicat ions:dry eye [The details of the medication are not available because there are pending changes by a home health clinician.] 15 mL 5 Active Additional Information Patient taking differently:1 drop Both Eyes As needed,Indications: Dry Eyes, Reported on 11/25/2024 hydrocerin cream (EUCERIN) CreamIndication s:dry skin Apply 1 each topically as needed. Indications: dry skin 113 g 5 Active lidocaine 4 % patchIndication s:pain Place 2 patches onto the skin daily. Indications: pain Remove & Discard patch within 12 hours or as directed by MD 30 patch 5 Active docusate sodium (COLACE) 100 MG capsuleIndicati ons:Constipatio n Take 100 mg by mouth daily. 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, sequela 11/16/2024 Encounter for rehabilitation 11/16/2024 Encounters Date Type Department Care Team Description 12/22/2024 9:00 AM CDT Home Care Visit [facility] [address] [place] [address] Soumya Mitchell, PT PT OASIS DISCHARGE 12/22/2024 Home Care Visit [facility] [address] [place] [address] Soumya Mitchell, PT CASE COMMUNICATION 12/20/2024 10:30 AM CDT Home Care Visit [facility] [address] [place] [address] Soumya Mitchell, PT PT REASSESSMENT 12/15/2024 9:00 AM CDT Home Care Visit [facility] [address] [place] [address] Yahaira Greenwood, CHLORINATOR OPERATOR CHLORINATOR OPERATOR HOME VISIT 12/12/2024 1:30 PM CDT Home Care Visit [facility] [address] [place] [address] Yasmine Cortez, RN SN DISCIPLINE DISCHARGE 12/12/2024 9:00 AM CDT Home Care Visit [facility] [address] [place] [address] Yahaira Greenwood, CHLORINATOR OPERATOR CHLORINATOR OPERATOR HOME VISIT 12/09/2024 9:00 AM CDT Home Care Visit [facility] [address] [place] [address] Yahaira Greenwood, CHLORINATOR OPERATOR CHLORINATOR OPERATOR HOME VISIT 12/07/2024 12:00 PM CDT Home Care Visit [facility] [address] [place] [address] Yahaira Greenwood, CHLORINATOR OPERATOR CHLORINATOR OPERATOR HOME VISIT 12/05/2024 9:58 AM CDT - 12/05/2024 11:59 PM CDT Hospital Encounter [facility] [address] [place] [address] Margret Fields NP Discharge Disposition: Home or Self Care (Routine Discharge) 12/05/2024 9:00 AM CDT Home Care Visit [facility] [address] [place] [address] Ros Baxter LPN SN HOME VISIT 12/05/2024 Orders Only [facility] [address] [place] [address] Non-Staff, Provider 12/01/2024 11:30 AM CDT Home Care Visit [place] [address] [place] [address] Yahaira Greenwood, CHLORINATOR OPERATOR CHLORINATOR OPERATOR HOME VISIT 11/28/2024 12:15 PM CDT Home Care Visit [place] [facility] [address] [place] [address] Richmond Boswell, OT OT INITIAL EVALUATION 11/28/2024 9:00 AM CDT Home Care Visit [facility] Home Care [place] [address] [place] [address] Soumya Mitchell, PT PT INITIAL EVALUATION 11/28/2024 8:30 AM CDT Home Care Visit [facility] Home Care [place] [address] [place] [address] Yasmine Cortez, RN SN HOME VISIT 11/25/2024 8:45 AM CDT Home Care Visit [facility] Home Care [place] [address] [place] [address] Yasmine Cortez, RN SN OASIS START OF CARE 11/25/2024 Plan of Care Documentation [place] [address] [place] [address] 11/24/2024 Telephone [facility] [address] [place] [address] Mariama Montes NP Medication (Eliquis) 11/16/2024 5:48 PM CDT - 11/23/2024 2:39 PM CDT Hospital Encounter [facility] [address] [place] [address] Pat Ingram MD McHale, Sara A, MD Discharge Disposition: Home with Home Health Care 11/16/2024 Travel from Last 3 Months Family History Medical [...] of experiencing loneliness or isolatio n Never 12/22/2024 OASIS [id number]: Transportation Answer Date Recorded Lack of Transportation (Medical) No 12/22/2024 Lack of Transportation (Non-Medical) No 12/22/2024 Patient Unable or Declines to Respond No 12/22/2024 OASIS B1300: Health Literacy Answer Brady e Recorded Frequency of needing help to read materials from doctor or pharmacy Rarely 12/22/2024 AUDIT-C Answer Date Recorded Q1: How often [...] Sign Reading Time Taken Comments Blood Pressure 110/60 12/22/2024 9:22 AM CDT Pulse 73 12/22/2024 9:22 AM CDT Temperature 36.7 C (98.1 F) 12/22/2024 9:22 AM CDT Respiratory Rate 18 12/22/2024 9:22 AM CDT Oxygen Saturation 97% 12/22/2024 9:22 AM CDT Inhaled Oxygen Concentration - - Weight 60 kg (132 lb 3.2 oz) 11/23/2024 6:01 AM CDT Height 174 cm (5' 8.5) 11/16/2024 6:11 PM CDT Body Mass Index 19.81 11/16/2024 6:11 PM CDT Plan of Treatment Health Maintenance Due Date Last Done Comments Colorectal Cancer Screening Colonoscopy (10 Years) 1955 Hepatitis C 08/16/1973 Zoster Vaccines (1 of 2) 08/16/2005 Annual Medicare Wellness Visit 08/16/2020 Mammogram Screening 09/13/2022 09/13/2020 COVID-19 Vaccine (2 - 2024-2 6 season) 2024 06/14/2020 Influenza Adult (#1) 2024 12/10/2022, 11/20/2021, 01/18/2015 DTaP, Tdap and Td Vaccines ( 2 - Td or Tdap) 06/29/2025 06/30/2015, 08/07/2001 RSV Immunization or 60+ Years (1 - 1-dose 75+ series) 08/16/2030 Pneumococcal Vaccine: 50+ Years Completed 08/28/2020, 01/18/2015, 11/05/2011 Dexa Scan (General) Completed 12/24/2022, 12/24/2022, 09/13/2020 Hepatitis A Vaccines Aged Out No long er eligible based on patient's age to complete this topic Meningococcal B Vaccine Aged Out No l [...] Recommended Domains Addressed Status Status Reason/Outcome Date/Time [facility] Department - [facility] Substance Use Counseling, Substance Use Services Alcohol Use, Tobacco Use Recommended 11/17/2024 4:03 PM CDT [facility] [place] Substance Use Counseling Alcohol Use, Tobacco Use Recommended 11/17/2024 4:03 PM CDT from Last 12 Months Procedures Procedure Name Priority Date/Time Associated Diagnosis Comments HC CBC AUTO W/AUTO DIFF Routine 12/05/2024 9:20 AM CDT Periprosthetic fracture of proximal end of femur HC COMPREHENSIVE METABOL PANEL Routine 12/05/2024 9:20 AM CDT Periprosthetic fracture of proximal end of femur MISCELLANEOUS LAB TEST TIMED 8:00 AM CDT HEMOGLOBIN AND HEMATOCRIT Routine 11/19/2024 10:47 AM CDT HC COMPREHENSIVE METABOL PANEL Routine 11/18/2024 5:27 AM CDT HC CBC AUTO W/AUTO DIFF Routine 11/18/2024 5:27 AM CDT from Last 3 Months Results * (ABNORMAL) COMPREHENSIVE METABOLIC PANEL (12/05/2024 9:20 AM CDT) Only the most recent of2 resultswithin the time period is included. SODIUM S/P/B 136 136 - 145 MMOL/L 12/05/2024 10:27 AM CDT [facility] POTASSIUM S/P/B 3.6 3.5 - 5.1 MMOL/L 12/05/2024 10:27 AM CDT [facility] CHLORIDE S/P/B 99 98 - 107 MMOL/L 12/05/2024 10:27 AM CDT [facility] CO2 28.4 21.0 - 32.0 MMOL/L 12/05/2024 10:27 AM CDT [facility] GLUCOSE 96 70 - 99 MG/DL 12/05/2024 10:27 AM CDT [facility] Comment: FASTING GLUCOSE 100 TO 125 MG/DL IS CONSISTENT WITH IMPAIRED FASTING GLUCOSE. FASTING GLUCOSE >125 MG/DL IS CONSISTENT WITH DIABETES. RANDOM GLUCOSE >200 MG/DL WITH HYPERGLYCEMIC SYMPTOMS IS CONSISTENT WITH DIABETES. PER ADA GUIDELINES BUN 9 6 - 24 MG/DL 12/05/2024 10:27 AM CDT [facility] CREATININE S/P/B 0.83 0.55 - 1.02 MG/DL 12/05/2024 10:27 AM CDT [facility] CALCIUM S/P/B 9.8 8.4 - 10.5 MG/DL 12/05/2024 10:27 AM CDT [facility] BILIRUBIN TOTAL S/P/B 0.8 0.2 - 1.0 MG/DL 12/05/2024 10:27 AM CDT [facility] Comment: THIS ASSAY IS NOT RECOMMENDED FOR PATIENTS UNDERGOING TREATMENT WITH ELTROMBOPAG DUE TO THE POTENTIAL FOR FALSELY ELEVATED RESULTS. ALKALINE PHOSPHATASE S/P/B 142 55 - 142 U/L 12/05/2024 10:27 AM CDT [facility] AST 23 15 - 37 U/L 12/05/2024 10:27 AM CDT [facility] ALT 18 14 - 59 U/L 12/05/2024 10:27 AM CDT [facility] TOTAL PROTEIN S/P/B 7.9 6.4 - 8.2 G/DL 12/05/2024 10:27 AM CDT [facility] ALBUMIN S/P/B 3.5 3.4 - 5.0 G/DL 12/05/2024 10:27 AM CDT [facility] ANION GAP 8.6 5.0 - 15.0 MMOL/L 12/05/2024 10:27 AM T [facility] OSMOLALITY (CALC) 281 MOSM/KG 025 10:27 AM T [facility] Comment:REFERENCE RANGE NOT ESTABLISHED GFR ESTIMATE 76(L) >89 ML/MIN/1. 73 M2 12/05/2024 10:27 AM T [facility] GFR NOTES GFR REFERENCE S: 12/05/2024 10:27 AM T [facility] Comment: THE ESTIMATED GFR IS [...] ml/min/1.73 m2 G5,KIDNEY FAILURE: <15 ml/min/1.73 m2 12/05/2024 9:20 AM CDT us Provider Non-Staff LABORATORY Final Result [facility] [address] [place] [address], * (ABNORMAL) CBC W/DIFF AUTOMATED (12/05/2024 9:20 AM CDT) Only the most recent of2 resultswithin the time period is included. WBC 7.57 4.00 - 10.80 x10'3/uL 12/05/2024 10:11 AM CDT [facility] RBC 2.93(L) 4.10 - 5.40 x10'6/uL 12/05/2024 10:11 AM CDT [facility] HGB 9.1(L) 12.0 - 16.0 G/DL 12/05/2024 10:11 AM CDT [facility] HCT 28.4(L) 36.0 - 47.0 % 12/05/2024 10:11 AM CDT [facility] MCV 96.9 78.0 - 100.0 FL 12/05/2024 10:11 AM CDT [facility] MCH 31.1(H) 27.0 - 31.0 PG 12/05/2024 10:11 AM CDT [facility] MCHC 32.0(L) 33.0 - 36.0 G/DL 12/05/2024 10:11 AM CDT [facility] RDW 13.8 11.5 - 14.5 % 12/05/2024 10:11 AM CDT [facility] PLT 277 150 - 350 x10'3/uL 12/05/2024 10:11 AM CDT [facility] MPV 9.5 7.4 - 10.4 FL 12/05/2024 10:11 AM CDT [facility] CBC COMMENT NORMAL REFERENCE RANGE NOT ESTABLISHED FOR THE PROPORTIONAL LEUKOCYTE DIFFERENTIAL. 12/05/2024 10:11 AM CDT [facility] NEUTROPHILS % 75.5 % 12/05/2024 10:11 AM CDT [facility] LYMPHOCYTES % 11.8 % 12/05/2024 10:11 AM CDT [facility] MONOCYTES % 8.2 % 12/05/2024 10:11 AM CDT [facility] EOSINOPHILS % 3.7 % 12/05/2024 10:11 AM CDT [facility] BASOPHILS % 0.4 % 12/05/2024 10:11 AM CDT [facility] IMMATURE GRANS % 0.4 % 12/06/19 10:11 AM CDT [facility] NRBC % 0.0 % 12/05/2024 10:11 AM CDT [facility] ABS. NEUTROPHILS 5.72 1.60 - 8.30 x10'3/uL 12/05/2024 10:11 AM CDT [facility] ABS. LYMPHOCYTES 0.89 0.80 - 4.70 x10'3/uL 12/05/2024 10:11 AM CDT [facility] ABS. MONOCYTES 0.62 0.00 - 1.50 x10'3/uL 12/05/2024 10:11 AM CDT [facility] ABS. EOSINOPHILS 0.28 0.00 - 0.40 x10'3/uL 12/05/2024 10:11 AM CDT [facility] ABS. BASOPHILS 0.03 0.00 - 0.20 x10'3/uL 12/05/2024 10:11 AM CDT [facility] ABS. IMMATURE GRANULOCYTES 0.03 0.00 - 0.03 x10'3/uL 12/05/2024 10:11 AM CDT [facility] ABS. NUCLEATED RBC'S 0.00 0.00 - 0.01 x10'3/uL 12/05/2024 10:11 AM CDT [facility] 12/05/2024 9:20 AM CDT us Provider Non-Staff LABORATORY Final Result [facility] [address] [place] [address], * MISCELLANEOUS LAB TEST (11/23/2024 8:00 AM CDT) TEST NAME: [id number] POSACONAZOLE 11/23/2024 10:51 AM CDT [facility] SPECIMEN TYPE RED TOP SERUM 11/24/19 10:51 AM CDT [facility] TEST RESULT: Flexitest 1 12/02/2024 10:48 PM CDT [facility] Comment: Flexitest 1 Posaconazole TESTS RESULTS--------UNITS--REF. RANGE--- POSACONAZOLE 2.10 mcg/mL (Note) Target for prophylaxis purpose: trough level > 0.7 mcg/mL after 7 days of treatment. Target for salvage treatment: trough level > 1.25 mcg/mL after 7 days of treatment. This test was developed and its analytical performance characteristics have been determined by [facility]. It has not been cleared or approved by the FDA. This assay has been validated pursuant to the CLIA regulations and is used for clinical purposes. [facility] [employer] [address] [place] [address],[address] [place] [address] Ross Craig MD, PhD Test performed by [employer] [address] [place] [address] [place] [address] Sourcing Coordinator: Ross Craig MD, PhD Test Reported by [facility], [facility], [address] [place] [address] Austen Mcgarry M.D., Ph.D., Director of Laboratories , CLIA [id number] BLOOD SPECIMEN / Unknown 11/23/2024 8:00 AM CDT Mary Castellano [facility] Final Res ult [facility] [address] , [facility] [address] [place] [address], * (ABNORMAL) HEMOGLOBIN AND HEMATOCRIT (11/19/2024 10:47 AM CDT) HGB 7.5(L) 12.0 - 16.0 G/DL 11/19/2024 10:52 AM CDT [facility] HCT 23.0(L) 36.0 - 47.0 % 11/19/2024 10:52 AM CDT [facility] 11/19/2024 10:4 7 AM CDT Mary Castellano [facility] Final Res ult [facility] [address] [place] [address], from Last 3 Months Insurance [facility] Advance Directives * Full Code (Latest Code Status on File) Date Activated Date Inactivated Comments 11/28/2024 7:00 AM * Full Code Date Activated Date Inactivated Comments 11/16/2024 6:41 PM 11/23/2024 4:39 PM Care Teams White Sugar Supervisor Relationship Specialty Start Date End Date Biju Starkey MD [address] [place] [address] DR INMAN A [address] [address] PCP - General FAMILY PRACTICE 11/17/24
--- OUTSIDE RECORDS SUMMARY | 2025-02-11 19:44 | XMS_ITS | Encounter Summary ---
Author Organization [facility] Address [address] [facility] [address] [place] [address] Care Team Providers Care Facility Maintenance Manager Name Role Phone Hermelinda Kumar MD Primary Care Provider [phone] Yocasta Keating DO Primary Care Provider [phone] Te Hudson MD Unavailable [phone] Biju Starkey MD Primary Care Provider Facundo Garcia MD Unavailable [phone] Holden Vargas MD Unavailable [phone] Encounter Details Date Type Department Care Team (Late st Contact Info) Description 10/24/2014 Orders Only [facility] Information Management [address] [place] [address] Yocasta Keating DO [address] [facility] [address] [address] Social History Tobacco Use Types Packs/Day Years Used Date Smoking Tobacco: Never Assessed Comments:Smoking History Pac ks/day: 0 Packs Alcohol Use Standard Drinks/Week Comments Yes 0 (1 standard drink = 0.6 oz pur e alcohol) Comments Unknown Sex and Gender Information Value Date Recorded Sex Assigned at Not on file Legal Sex Female 12:47 AM MILL ROLL REWINDER Gender Identity Not on file Sexual Orientation [...] on filedocumented in this encounter Care Teams Facility Maintenance Manager Relationship Specialty Start Date End Date Hermelinda Kumar MD [address] [place] [address] PCP - General 09/25/14 08/27/20 Yocasta Keating DO [address] [place] [address] PCP - General Family Medicine 08/28/20 12/29/23 Biju Starkey MD [address] [facility] [address] [place] [address] PCP - General Family Medicine 12/30/23 Te Hudson MD [address] [facility] [address] [place] [address] Consulting Physician Neurology 12/10/22 Facundo Garcia MD [address] [facility] 1 [place] [address] Consulting Physician Nephrology 12/30/23 Holden Vargas MD [address] [phone] [place] [address] Consulting Physician Plastic Surgery 12/30/23 documented as of this encounter
--- OUTSIDE RECORDS SUMMARY | 2025-02-11 19:44 | XMS_ITS | Encounter Summary ---
Author Organization [facility] Healthcare Address [address] [place] [address] Care Team Providers Care Portable Machine Sander Name Role Phone Te Hudson MD Unavailable [phone] Biju Starkey MD Primary Care Provider Facundo Garcia MD Unavailable [phone] Holden Vargas MD Unavailable [phone] Reason for Visit * Reason Onset Date Comments Medical Question/Miscellaneous 01/27/2025 Encounter Details Date Type Department Care Team (Late st Contact Info) Description 01/27/2025 Telephone [facility] Primary Care at [address] [address] Biju Starkey MD [address] [place] [address] [address] [place] [address] Medical Question/Miscellaneous Social History Tobacco Use Types Packs/Day Years Used Date Smoking Tobacco: Former Cigarettes 0.8 35.7 0 03/09/1989 - 11/2024 Smokeless Tobacco: Never Comments:Smoking History Pac ks/day: 0.75 pack for 32 years =24 pack history Alcohol Use Standard Drinks/Week Comments Yes 6 (1 standard drink = 0.6 oz pur e alcohol) PHQ-2 Answer Date Recorded PHQ-2 Total Score (If total score is 3 or more points, staff should administer the PHQ-9) 0 10/19/2024 AUDIT-C Answer Date Recorded Q1: How often do you have a drink containing alc ohol? 2-3 times a week 11/07/2024 Q2: How many drinks containi ng alcohol do you have on a typical day when you are drinking? 3 or 4 11/07/2024 Q3: How often do you have si x or more drinks on one occasion? Monthly 11/07/2024 Personal Safety Answer Date Recorded Have you ever been in or are you currently in a harmful physical or emotional relationship or is someone making you feel afraid or unsafe? Denies 11/07/2024 Comments No Sex and Gender Information Value Date Recorded Sex Assigned at Not on file Legal Sex Female 12:47 AM INSPECTOR FILTERS Gender Identity Not on file Sexual Orientation Not on file documented as of this encounter Miscellaneous Notes * Telephone Encounter - RodgerritchieNessa - 01/27/2025 1:16 PM CST Medical Question/Miscellaneous Caller???s Concern: Patient asking about her sleep study. informed her that the referral was sent on 01/24/2025 and once the provider gets insurance authorization they will contact her for an appointment. Does message need to be routed? No ECTOR FILTERS documented in this encounter Plan of Treatment Not on file documented as of this encounter Visit Diagnoses Not on filedocumented in this encounter Care Teams Portable Machine Sander Relationship Specialty Start Date End Date Biju Starkey MD [address] [place] [address] PCP - General Family Medicine 12/30/23 Te Hudson MD [address] [facility] [address] [place] [address] Consulting Physician Neurology 12/10/22 Facundo Garcia MD [address] [facility] 1 [place] [address] Consulting Physician Nephrology 12/30/23 Holden Vargas MD [address] [phone] [place] [address] Consulting Physician Plastic Surgery 12/30/23 documented as of this encounter
--- OUTSIDE RECORDS SUMMARY | 2025-02-11 19:44 | XMS_ITS | Encounter Summary ---
Author Organization [facility] Healthcare Address [address] [place] [address] Care Team Providers Care Highway Truck Driver Name Role Phone Te Hudson MD Unavailable [phone] Biju Starkey MD Primary Care Provider Facundo Garcia MD Unavailable [phone] Holden Vargas MD Unavailable [phone] Encounter Details Date Type Department Care Team (Late st Contact Info) Description 01/13/2025 Results Follow-Up [facility] Primary Care at [address] [address] Biju Starkey MD [address] [place] [address] [address] [place] [address] Folate, Lipid panel, Thyroid Function [place], Additional followed-up results: 4 Social History Tobacco Use Types Packs/Day Years [...] on file Legal Sex Female 12:47 AM SENIOR HEALTH CONSULTANT Gender Identity Not on file Sexual Orientation Not on file documented as of this encounter Miscellaneous Notes * Result Encounter Note - Biju Starkey MD - 01/13/2025 4:09 AM SENIOR HEALTH CONSULTANT Lab results show higher cholestenol levels so as discussed in office restart taking ezetimibe. Other omer you also have low sodium, a bit lower than before although it is a known chronic condition for you. Sodium level was 126, make sure you increase salt containing foods/drinks as you have been told by your kidney doctor. Lets recheck this along with your blood count which was not done yesterdayin 1 week. Orders placed for you. OR HEALTH CONSULTANT documented in this encounter Plan of Treatment Not on file documented as of this encounter Visit Diagnoses Not on filedocumented in this encounter Care Teams Highway Truck Driver Relationship Specialty Start Date End Date Biju Starkey MD [address] [facility] [address] [place] [address] PCP - General Family Medicine 12/30/23 Te Hudson MD [address] [place] [address] [address] [place] [address] Consulting Physician Neurology 12/10/22 Facundo Garcia MD [address] [facility] 1 [place] [address] Consulting Physician Nephrology 12/30/23 Holden Vargas MD [address] [phone] [place] [address] Consulting Physician Plastic Surgery 12/30/23 documented as of this encounter
--- OUTSIDE RECORDS SUMMARY | 2025-02-11 19:44 | XMS_ITS | Clinical Summary ---
Author Organization [facility] Medical Office Building [address] Address [address] [place] [address] Care Team Providers Care Farmworker Grain Name Role Phone Te Hudson MD Unavailable [phone] Biju Starkey MD Primary Care Provider Facundo Garcia MD Unavailable [phone] Holden Vargas MD Unavailable [phone] Allergies Active Allergy Reactions Criticality Noted Date Comments Ibuprofen Hives,Rash High 09/13/2017 Latex Rash High 10/10/2020 Rofecoxib Rash,Unknown Medium 09/13/2017 Medications diphenhydrAMINE (BENADRYL) 25 mg capsule Take 1 tablet/capsule (25 mg total) by mouth daily as needed (seasonal allergies) Active ezetimibe (ZETIA) 10 mg tabletIndicatio ns:Bilateral carotid artery stenosis Take 1 tablet (10 mg total) by mouth daily 90 tablet 3 4 Active acetaminophen 500 mg capsuleIndicati ons:Pain Take 2 capsules (1,000 mg total) by mouth every 6 (six) hours 0 5 Active posaconazole (NOXAFIL) 100 mg tablet,delayed release (DR/EC)Indicati ons:Bone/Joint Infection Take 3 tablets (300 mg total) by mouth daily 0 5 Active aspirin 81 mg chewable tabletIndicatio ns:Bilateral carotid artery stenosis Take 1 tablet (81 mg total) by mouth daily 0 5 Active posaconazole (NOXAFIL) 100 mg tablet,delayed release (DR/EC) Take 3 tablets (300 mg total) by mouth daily 90 tablet 2 5 02/21/20 25 Active oxyCODONE (ROXICODONE) 5 mg immediate release tabletIndicatio ns:Pain Take 1 tablet (5 mg total) by mouth every 4 (four) hours as needed for pain 30 tablet 5 Active triamcinolone (KENALOG) 0.1 % ointmentIndicat ions:skin rash Apply topically 2 (two) times a day 5 Active Active Problems Problem Noted Date Diagnosed Date Low bone mass 01/12/2025 Assessment & Plan (01/13/2025 4:07 AM SWEATBAND FLANGER): - Past due for bone density testing, she is postmenopausal and previous bone density in 2020 showed low bone mass - Bone density from 2022 was not completed - New order placed for assessment - Status post recent hip revision surgery for fall associated with right hip fracture on 10/2024 Lab Results Component Value Date CALCIUM 9.6 01/12/2025 CAION 5.13 (H) 11/07/2024 PHOS 3.5 11/10/2024 Lab Results Component Value Date 25HYDROVITD 47.0 01/12/2025 Orders: Dexa Axial Skeleton Bone Density 1 Or 2 Site; Future Thyroid Function [place]; Future Vitamin D 25 hydroxy; Future Wound of right leg 11/22/[address] scan 11/14/2024 Assessment & Plan (11/16/2024 10:20 AM CDT): - Acute callosal angle, ventriculomegaly disproportionate to cerebral volume loss and disproportionate atrophy of bilateral temporal lobes. The constellation of these findings could be seen in normal pressure hydrocephalus. Follow up with PCP for further evaluation as needed. Acute blood loss anemia 11/08/2024 Assessment & Plan (11/11/2024 11:19 AM CDT): - Hgb 12.4 on admission - Hgb trend 12.4-10.7-9.4-6.6-7 - 9/: Hgb 6.6, 1 unit PRBCs transfused. Post transfusion Hgb 7, additional 1 unit PRBCs transfusing - 11/09 Hgb 8.4 (7.0) - 11/10 Hgb 7.4 (8.4) - Labs only PRN Fall, initial encounter 11/05/2024 Assessment & Plan (11/14/2024 2:08 PM CDT): - Possible Pre-syncopal fall after drinking - Syncopal workup: OSVS, TTE - Orthostatic vital signs negative - TTE 11/11- Mildly dilated left ventricle based on volume index. Normal LV wall thickness. Normal left ventricular systolic function. The Ejection Fraction (Hidalgo's) is measured at 63 %. Normal diastolic function. The average global longitudinal strain is borderline Periprosthetic fracture of p roximal end of femur with concern for mold infection 11/05/2024 Assessment & Plan (12/09/2024 2:55 PM CDT): Mold identification still pending. Serum Aspergillus galactomannan negative. Patient is clinically doing well with well healed incision and pain well controlled. - will obtain posaconazole trough level for TDM - continue posaconazole 300 mg PO daily pending mold speciation. - 11/18/24 CMP no LFT elevation - 09/05/24 ECG Qtc = 393 - I discussed with the patient my impression, the imaging findings, and treatment plan in detail with a focus on the etiology, natural history, and management of symptoms. - I discussed with the patient the rationale for treatment, culture results, risk of recurrent infection, signs/symptoms of recurrent infection, and to contact ID clinic with any questions or concerns. Assessment & Plan (11/16/2024 1:41 PM CDT): 69-year-old lady with a history of alcohol use disorder, presented with of fall and a right periprosthetic femur fracture. OR 11/07 ORIF right femur, right revision total hip arthroplasty . Of note she had a partial right hip replacement done 5 years ago, with no infectious complications thus far. Intraoperatively 11/07/2024 they found periprosthetic fluid and the tissue was sent for cultures and 1/4 cultures is growing a mold. She denies any symptoms related to the right hip prior to the fall On discussion with surgeon- difficult to rule out an infection in the setting, although a mold infection would be rare but cannot be ruled out. She feels well currently without any systemic signs of infection. Her wound is healing well. In the setting awaiting further identification of the mold, and other cultures finalization, continue posaconazole 300 mg oral daily A serum galactomannan is pending at time Get a posaconazole TDM level on 11/18 I have discussed with the patient in detail about the concerns of a mold infection in the setting of a new prosthesis. We are unable to rule in definitely a mold infection, with the limited data that we currently including speciation. Out of abundance of caution it would be reasonable to treat her with posaconazole in view of the fact that if it this is indeed an infection with a mold it would be very concerning. I stressed the need for very close follow-up with fungal infection experts. Assessment & Plan (11/16/2024 12:21 PM CDT): #R periprosthetic femur fracture s/p fall - Orthopedic consult - s/p OR 11/07 ORIF right femur, right revision total hip arthroplasty - 20 lbs flat foot weight bearing RLE - Posterior hip precautions - Ancef in house, transition to duracef on DC to complete 2 weeks total of abx - Hemovac drain removed 11/11 - iVac in place - PT/OT - Multimodal pain control - iVac dressing to be changed on POD7 or day of discharge if leaving before then (call ortho when patient is discharging) - ID consult for mold in 1 OR culture - Recommend posaconazole load, then daily dosing while speciation pends - CMP, S galactomannan, HIV, Hep B/C - Posacazole TDM level in 5 days (11/18/24) WB Status: 20# flat foot weight bearing right lower extremity Immobilization: abduction pillow Activity: Ambulate with assist Therapy: PT/OT for OOB/mobilization as tolerated. Precautions: Posterior hip precautions Antibiotics: posaconazole per ID, ancef while in house and transition to duricef on discharge to complete 2 week postop course in total Cultures: OR Cx one sample +mold, 3x NGTD (11/07/2024) López: Per primary Wound Care: Maintain surgical dressing, will be managed by Ortho team Diet: Regular Additional Needs: ID consult Follow-Up: Patient has follow up scheduled on 11/21 with Mary Alice Amato located at [facility] Antibiotics: Cefazolin 11/07-11/16 Vancomycin 11/07 Posa 11/14-, duration based on Posacazole TDM level on 11/18/2024 Duricef 1000 daily 11/16-11/21 Alcohol use 11/05/2024 Assessment & Plan (01/13/2025 4:07 AM SWEATBAND FLANGER): - History of alcohol consumption every other day - Concerned about potential alcohol overuse, order placed for labs as well as associated nutritional deficiencies that can occur Lab Results Component Value Date VITB12 708 01/12/2025 Lab Results Component Value Date FOLATE 11.1 01/12/2025 Lab Results Component Value Date ALT 11 01/12/2025 AST 25 01/12/2025 ALKPHOS 171 (H) 01/12/2025 BILITOT 0.4 01/12/2025 Orders: Comprehensive metabolic panel; Future Vitamin B12; Future Vitamin B1; Future Folate; Future CBC without differential; Future Assessment & Plan (11/16/2024 1:41 PM CDT): 69-year-old lady with a history of alcohol use disorder, presented with of fall and a right periprosthetic femur fracture. OR 11/07 ORIF right femur, right revision total hip arthroplasty . Of note she had a partial right hip replacement done 5 years ago, with no infectious complications thus far. Intraoperatively 11/07/2024 they found periprosthetic fluid and the tissue was sent for cultures and 1/4 cultures is growing a mold. She denies any symptoms related to the right hip prior to the fall On discussion with surgeon- difficult to rule out an infection in the setting, although a mold infection would be rare but cannot be ruled out. She feels well currently without any systemic signs of infection. Her wound is healing well. In the setting awaiting further identification of the mold, and other cultures finalization, continue posaconazole 300 mg oral daily A serum galactomannan is pending at time Get a posaconazole TDM level on 11/18 I have discussed with the patient in detail about the concerns of a mold infection in the setting of a new prosthesis. We are unable to rule in definitely a mold infection, with the limited data that we currently including speciation. Out of abundance of caution it would be reasonable to treat her with posaconazole in view of the fact that if it this is indeed an infection with a mold it would be very concerning. I stressed the need for very close follow-up with fungal infection experts. Assessment & Plan (11/14/2024 7:27 PM CDT): Six 9-year-old lady with a history of alcohol use disorder, presented with of fall and a right periprosthetic femur fracture. OR 11/07 ORIF right femur, right revision total hip arthroplasty . Of note she had a partial right hip replacement done 5 years ago, with no infectious complications thus far. Intraoperatively 11/07/2024 they found periprosthetic fluid and the tissue was sent for cultures and 1/ cultures is growing a mold. She denies any symptoms related to the right hip prior to the fall I discussed with the orthopedic surgeon today, difficult to rule out an infection in the setting, although a mold infection would be rare but cannot be ruled out. In the setting awaiting further identification of the mold, and other cultures finalization, would start her on oral posaconazole 300 mg every 12 hourly for 2 doses, following which would give her posaconazole 300 mg oral daily Would repeat a CMP tomorrow Get a posaconazole TDM level in 5 days Please get S galactomannan with next set of labs Assessment & Plan (11/08/2024 1:17 PM CDT): Drinks up to 6 beers daily, admit s/p fall after drinking - WA protocol - Seizure precautions - Thiamine, folate, MVI - CD consult complete 11/08 Onychomycosis 10/20/2024 Assessment & Plan (10/20/2024 3:33 AM CDT): Presence of toenail fungus noted, but not the primary concern at this time. - Refer to podiatry for management of toenail fungus. Orders: Ambulatory referral to Podiatry; Future Dyshidrotic eczema 10/19/2024 Assessment & Plan (01/13/2025 4:07 AM SWEATBAND FLANGER): Dyshidrotic eczema of feet, significantly improved with medication Chronic dyshidrotic eczema affecting both feet, characterized by dryness, flaking, and cracking. Symptoms have persisted for approximately six months. The condition is not infectious but may lead to secondary infections if not managed properly. - Continue with triamcinolone 0.1% ointment application twice daily as needed bilateral feet Orders: triamcinolone (KENALOG) 0.1 % ointment; Apply topically 2 (two) times a day Assessment & Plan (10/20/2024 3:33 AM CDT): Dyshidrotic eczema of feet Chronic dyshidrotic eczema affecting both feet, characterized by dryness, flaking, and cracking. Symptoms have persisted for approximately six months. The condition is not infectious but may lead to secondary infections if not managed properly. - Apply steroid ointment generously to affected areas twice daily until improvement, then reduce to once daily. - Prescribe a large jar of steroid ointment to help soften skin and prevent cracking. - Refer to podiatry for further management of skin and toenail issues. Orders: triamcinolone (KENALOG) 0.1 % ointment; Apply topically 2 (two) times a day as needed for irritation or rash Family history of colon cancer 01/04/2024 Preventative health care 12/30/2023 Assessment & Plan (01/13/2025 4:07 AM SWEATBAND FLANGER): - New or chronic worsening conditions: Suspected obstructive sleep apnea, hyperlipidemia, hyponatremia - Mental health: no significant psychiatric/mental health [...] - Breast Cancer screening: past due, reminder provided, new orders placed - Colon cancer screening: up to date - Lung cancer screening: up to date - Bone desnity/osteoporosis screening: Past due, order placed for bone density testing - control: not indicated Assessment & Plan (12/30/2023 2:02 PM CDT): [...] not indicated S/P hip replacement, right 12/30/2023 Assessment & Plan (01/13/2025 4:07 AM SWEATBAND FLANGER): 11/07/24 ORIF right femur, right revision total hip arthroplasty due to right periprosthetic femur fracture - has finished physical therapy - still has some pain and uses a walker with ambulation - recommend bone density testing, order placed Hypo-osmolality and hyponatremia 12/10/2022 Overview (01/12/2025): Following with Nephrology - Radha Assessment & Plan (01/13/2025 4:07 AM SWEATBAND FLANGER): - chronic condition, worse - established and followed by Nephrology - Dr. Garcia - currently on high sodium intake with sodium chloride tablets --> but states she cannot take them so drinks a can of V8 juice and eating a dil pickle and drinking the juice as well - continue current management Lab Results Component Value Date SODIUM 126 (L) 01/12/2025 SODIUM 135 11/15/2024 SODIUM 134 (L) 11/14/2024 SODIUM 130 (L) 11/13/2024 SODIUM 134 (L) 11/13/2024 Orders: Comprehensive metabolic panel; Future Assessment & Plan (12/30/2023 2:04 PM CDT): [...] Carotid Stenosis 01/30 (scanned copy, done at [facility]) <50% stenosis in both right and left ICA 01/30 - Spoke with patient on her results and she stated that the new medication that she was prescribed. Has been causing her some leg cramp, please advise? 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 States she was started on them before but not on it - started aspirin 81 mg daily and Ezetimibe 10 mg daily, on prior visit but has not been taking it since she had her recent hip fracture and was out of the hospital --> restart aspirin 81 mg daily as well as ezetimibe 10 mg daily - recommend obtaining US Carotids, order placed in past visit but not done - Long smoking history but recently quit smoking on 11/2024 so continue with tobacco smoking cessation - recheck labs, lipid panel, orders placed Lab Results Component Value Date LDLCALC 143 (H) 01/12/2025 Orders: Comprehensive metabolic panel; Future Lipid panel; Future CBC without differential; Future Assessment & Plan (12/30/2023 2:16 PM CDT): - chronic condition - 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 States she was started on them before but not on it - start aspirin 81 mg daily and Ezetimibe 10 mg daily, script sent - recommend obtaining US Carotids, order placed - check labs, orders placed Lab Results Component Value Date LDLCALC 92 06/04/2022 Hyperlipidemia 07/17/2021 Assessment & Plan (01/13/2025 4:07 AM SWEATBAND FLANGER): Chronic condition, worse Has now been taking ezetimibe since her recent hip fracture and surgical intervention Restart taking ezetimibe 10 mg daily Most recent labs as shown below Lab Results Component Value Date CHOL 219 (H) 01/12/2025 CHOL 208 (H) 06/04/2022 CHOL 203 (H) 07/17/2021 Lab Results Component Value Date HDL 57 01/12/2025 HDL 87 06/04/2022 HDL 80 07/17/2021 Lab Results Component Value Date LDLCALC 143 (H) 01/12/2025 LDLCALC 92 06/04/2022 LDLCALC 103 07/17/2021 Lab Results Component Value Date TRIG 108 01/12/2025 TRIG 145 06/04/2022 TRIG 99 07/17/2021 Assessment & Plan (07/17/2021 12:56 PM CDT): HPI: Condition is not at/near goal A&P: ordered labs, encouraged healthy, low carbohydrate lifestyle and at least 150min/week of exercise, continue on current regimen Consider starting statin if remains elevated/increased acvsd risk History of colonic polyps 09/03/2020 Assessment & Plan (10/20/2024 3:33 AM CDT): Request colonoscopy records - done at [place] in September 28, 2024 via [facility] and told repeat it in 7 years. She had two polyps found. Requesting cords Colonoscopy 12/2020 Impression: - One 6 mm [...] for screening purposes. - Continue present medications. Assessment & Plan (12/30/2023 1:59 PM CDT): [...] without complicati on 08/28/2020 Assessment & Plan (01/13/2025 4:07 AM SWEATBAND FLANGER): Social History Tobacco Use Smoking Status Former Current packs/day: 0.00 Average packs/day: 0.8 packs/day for 35.7 years (26.7 ttl pk-yrs) Types: Cigarettes Start date: 03/09/1989 Quit date: 11/2024 Years since quittin.1 Smokeless Tobacco Never Tobacco Comments Smoking History Packs/day: 0.75 pack for 32 years =24 pack history - chronic condition, at goal, recently quit 11/2024, congratulations - Continue with abstinence from tobacco smoking - Lung cancer screening - up to date as shown below LDCT 04/2024 Similar-appearing bilateral pulmonary nodules and scarring. No [...] in 12 months. Additional recommendations as above. Assessment & Plan (12/30/2023 1:58 PM CDT): [...] Problem Noted Date Diagnosed Date Resolved Date Delirium 11/16/2024 11/16/2024 Assessment & Plan (11/16/2024 12:43 PM CDT): -continue sleep hygiene, ramelteon PRN -11/16 A & Hyponatremia 11/08/2024 01/12/2025 Overview (01/12/2025): Follows with Nephrology - Dr. Garcia Assessment & Plan (11/16/2024 10:18 AM CDT): - Chronic, follows with PCP - Does not tolerate salt tablets per patient - Na trend [phone] - 1.2 L free water restriction - Gatorade - Discussed adding extra salt to food - 11/12: improved to 133 (128) - 11/14: Na 130 (134), Free water restriction 1 L/ 24 hr + gatorade and supplements - 11/15: Na 134, will consider resolved Discharge planning issues 11/08/2024 Assessment & Plan (11/16/2024 10:19 AM CDT): - 11/08: Total 2 units PRBCs transfusing, pending syncope work up - 11/09: Hgb improved. Pending syncope work up. - 11/10: Pending syncope work up. Trending Hgb and Na levels. - 11/11 - 11/13: Patient is medically stable for discharge, SW/CM updated. Discharge pending insurance authorization. Peer 2 Peer requested for tomorrow AM - 11/14: peer to peer for IRF denied. ID Bone and Joint consult. - 11/15: SNF out of network, swing bed reviewing - 11/16: stable for discharge, will DC today. Treatment note [x] Acute pain 11/05/2024 01/12/2025 Assessment & Plan (11/08/2024 1:18 PM CDT): Multimodal pain regimen - Acetaminophen 1000mg Q6H scheduled - Gabapentin 300mg TID scheduled - Robaxin 750mg Q6H scheduled - Oxycodone 4mg Q4H PRN Encounter for screening colonoscopy 01/04/2024 10/19/2024 Brow ptosis, bilateral 01/26/202312/29 BMI 24.0-24.9, adult [...] not previously have a hx of HTN. Chronic fatigue 07/17/2021 12/30/2023 Encounter for screening colonoscopy 09/03/2020 11/20/2021 Overview (09/03/2020): Added automatically from request for surgery [id number] Encounters Date Type Department Care Team Description 01/27/[address] [facility] Medical Group Primary Care at [address] [phone] Biju Starkey MD Medical Question/Miscellaneous 01/23/2025 10:15 AM SWEATBAND FLANGER Office Visit [facility] Medicine Orthopaedic Surgery [address] [place] [address] [address] [place] [address] Reginald Xiong MD Orthopedic aftercare (Primary Dx) 01/23/2025 10:05 AM SWEATBAND FLANGER - 01/23/2025 11:59 PM SWEATBAND FLANGER Hospital Encounter [address] [facility] [address] [place] [address] Orthopedic aftercare Discharge Disposition: Discharge to home or self care 01/23/2025 10:03 AM SWEATBAND FLANGER - 01/23/2025 11:59 PM SWEATBAND FLANGER Hospital Encounter [facility] [address] [phone] Orthopedic aftercare Discharge Disposition: Discharge to home or self care 01/16/2025 Telephone [facility] Primary Care at [address] [phone] Biju Starkey MD Additional Services Or Orders 01/13/2025 Results Follow-Up [facility] Primary Care at [address] [phone] Biju Starkey MD Folate, Lipid panel, Thyroid Function [place], Additional followed-up results: 4 01/12/2025 10:20 AM SWEATBAND FLANGER Lab [address] [address] Alcohol use; Bilateral carotid artery stenosis; Low bone mass; Hypo-osmolality and hyponatremia 01/12/2025 9:30 AM SWEATBAND FLANGER Office Visit [facility] Primary Care at [address] [phone] Biju Starkey MD Preventative health care (Primary Dx); Bilateral carotid artery stenosis; Breast cancer screening by mammogram; Alcohol use; Low bone mass; Hypo-osmolality and hyponatremia; Dyshidrotic eczema; Cigarette nicotine dependence without complication; NHI (obstructive sleep apnea); Postmenopausal; Hyperlipidemia, unspecified hyperlipidemia type; S/P hip replacement, right; Acute blood loss anemia 12/30/2024 Telephone [facility] Primary Care at [address] [address] Biju Starkey MD Jan [address] Berman cancelled 12/16/2024 10:00 AM CDT Office Visit [facility] Medicine Orthopaedic Surgery [address] [facility] Medical Office Building [address] [place] [address] Reginald Xiong MD Orthopedic aftercare (Primary Dx) 12/16/2024 9:30 AM CDT - 12/16/2024 11:59 PM CDT Hospital Encounter [facility] [address] [facility] [address] [place] [address] Orthopedic aftercare Discharge Disposition: Discharge to home or self care 12/12/2024 Telephone [facility] Infectious Diseases [address] [place] [phone] Margret Fields NP 12/05/2024 2:56 PM CDT - 12/05/2024 11:59 PM CDT Hospital Encounter [address] [address] Discharge Disposition: Discharge to home or self care 12/05/2024 2:20 PM CDT Office Visit [facility] Infect[facility] Diseases [address] [place] [phone] Margret Fields NP Therapeutic drug monitoring (Primary Dx); Periprosthetic fracture of proximal end of femur with concern for mold infection 11/30/2024 9:45 AM CDT Office Visit [facility] Orthopaedic Surgery [address] [place] [address] [facility] [address] [place] [phone] Reginald Xiong MD Orthopedic aftercare (Primary Dx) 11/25/[address] [facility] [address] [facility] Accountable Care Organization [address] [place] [id number] Aj Sales LPN 11/23/2024 [facility] [address] [place] [phone] Kaycee Montes NP 11/22/2024 Orders Only [facility] Infectious Diseases [address] [place] [phone] Kaycee Montes NP 11/22/2024 Telephone [facility] Infectious Diseases [address] [place] [phone] Moni García, NATALIIA 11/21/2024 1:15 PM CDT Office Visit [facility] Orthopaedic Surgery [address] [place] [address] [facility] [address] [place] [phone] Mary Alice Amato NP Orthopedic aftercare (Primary Dx) 11/21/2024 12:45 PM CDT - 11/21/2024 11:59 PM CDT Hospital Encounter [facility] [address] [facility] [address] [place] [phone] Orthopedic aftercare Discharge Disposition: Discharge to home or self care 11/21/2024 Telephone [facility] Medicine Infectious Diseases [address] [phone] Kaycee Montes NP 11/18/[address] [facility] Medical Group Primary Care at [address] [phone] Biju Starkey MD Follow for home health 11/16/2024 Orders Only [facility] Medicine Infectious Diseases 620 [facility] [address] [place] [phone] Yosi Quinn MD 11/04/2024 10:48 PM CDT - 11/16/2024 4:22 PM CDT Hospital Encounter [facility] [address] [place] [phone] Wiley Michael MD Kipfer, Yeimy Ham, Fall, initial encounter (Primary Dx); Displaced intertrochanteric fracture of right femur, initial encounter for closed fracture; Periprosthetic fracture of proximal end of femur; Mold exposure; Bilateral carotid artery stenosis Discharge Disposition: Discharge to SNF from Last 3 Months Immunizations Immunization Administration Dates Next Due Influenza, Quadrivalent, Hig h Dose, Preservative Free, Intrr 12/10/2022,11/20/2021 Influenza, Quadrivalent, Spl it, Intramuscular 01/18/2015 Influenza, Trivalent, High D ose, Split, Preservative Free, Intramuscular 12/10/2022,11/20/2021 Influenza, Unspecified 10/19/2024(Deferr ed: Patient Refused),03/09/2024(Deferred: Patient Refused),03/09/2023(Deferred: Patient Refused),12/10/2022(Deferred: Patient Refused),11/29/2020(Deferred: Patient Refused),12/08/2019(Deferred: Patient Refused) Flipaste (J&J) SARS-CoV-2 Vaccination 06/14/2020 Pneumococcal Conjugate PCV 13 01/18/2015 Pneumococcal Polysaccharide PPV23 08/28/2020, Td, Not Adsorbed 08/07/2001 Td, adsorbed 08/07/2001 Tdap 06/30/2015 Surgical History [...] 0 03/09/1989 - 11/2024 Smokeless Tobacco: Never Tobacco Cessation:Counseling Given: Not Answered Comments:Smoking History Packs/day: 0.75 pack for 32 [...] on file Legal Sex Female 12:47 AM [facility] Gender Identity Not on file Sexual Orientation Not on file Obstetrics History Para Term AB IAB SAB Ectopic Multiple Livin g Live Births 2 Date Outcome GA Total Labor Labor/2nd/3rd Weight Sex Type Anes PTL Radha A1 A5 Name Clin Last Filed Vital Signs Vital Sign Reading Time Taken Comments Blood Pressure 120/78 01/12/2025 9:42 AM [facility] Pulse 76 01/12/2025 9:42 AM [facility] Temperature 36.7 C (98 F) 01/12/2025 9:42 AM [facility] Respiratory Rate 20 11/16/2024 3:56 PM CDT Oxygen Saturation 98% 01/12/2025 9:42 AM [facility] Inhaled Oxygen Concentration - - Weight 67.7 kg (149 lb 4.8 oz) 01/12/2025 9:42 A M [facility] Height 172.7 cm (5' 8) 01/12/2025 9:42 AM [facility] Body Mass Index 22.7 01/12/2025 9:42 AM [facility] Plan of Treatment Health Maintenance Due Date Last Done Comments Zoster Vaccine (1 of 2) 08/16/2005 Covid-19 Vaccine ( season) 2024 06/14/2020 Osteoporosis Screening-Bone Density Scan 12/24/2024 12/24/2022, 09/13/2020 Breast Cancer Screening-Mammogram 01/24/2025 01/25/2024, 12/24/2022, 09/25/2021, Additional history exists Lung Cancer Screening 05/03/2025 05/02/2024 , 04/22/2023, 12/11/2021, Additional history exists DTaP/Tdap/Td Vaccine (2 - Td or Tdap) 06/29/2025 06/30/2015, 08/07/2001, 08/07/2001 Influenza Vaccine (#1) 2025 , 12/10/2022, 11/20/2021, Additional history exists Postponed from 11/07/2024 (Patient declined, but will receive in the future) Depression Screening 10/19/2025 10/19/2024, 12/30/2023, 06/25/2023, Additional history exists Fall Risk Assessment 11/16/2025 11/16/2024, 10/19/2024, 12/30/2023, Additional history exists Well Visit 65+ 01/12/2026 01/12/2025, 12/08, 12/10/2022, Additional history exists Colon Cancer Screening-Colonoscopy 09/29/2031 09/28/2024, 12/18/2020 Pneumococcal vaccine 65+ Completed 021, 01/18/2015, 11/05/2011 Hepatitis B Screening Completed 11/14/2024 Hepatitis C Screening Completed 11/14/2024, 021 Medical Devices Implanted Type Area Student Finance Specialist Device Identifier Shelf Expiration Date Model / Serial / Lot [employer] Screw Bone Hip Acetabular Full Thread Cancellous Hex Drive [place] 6.5x35mm Titanium 1217-35-500 - [id number] Implanted:Qty: 1 on 11/07/2024 by Reginald Xiong MD at [facility] Right: Hip [employer] 1217-35-500 / / Dep[employer] Shell Acetabular Hip Porous 3 Hole Coated Emphasys 52mm Titanium [id number] - [id number] Implanted:Qty: 1 on 11/07/2024 by Reginald Xiong MD at [facility] Right: Hip [employer] Inc 02/05/2034 [id number] / / [id number] Dep[employer] Liner Acetabular Hip Standard Emphasys Aox 91o68yv Polyethylene [id number] - [id number] Implanted:Qty: 1 on 11/07/2024 by Reginald Xiong MD at [facility] Right: Hip [employer] 06/06/2029 [id number] / / [id number] Dep[employer] Stem Femoral Reclaim Mon Rev Xlg Stem 18 Ho [id number] - [id number] Implanted:Qty: 1 on 11/07/2024 by Reginald Xiong MD at [facility] Right: Hip [employer] Inc 04/08/2034 [id number] / / [id number] Dep[employer] Articul/Luiz 40mm Total Stabilize Hip +5mm 12/14 Taper Head Latex Free [id number] - [id number] Implanted:Qty: 1 on 11/07/2024 by Reginald Xiong MD at [facility] Right: Hip [employer] 02/05/2029 [id number] / / [id number] Biocomposites Stimulan Rapid Cure Kit Paste Informatics Nurse 10cc 20cc Bone Void 620-010 - [id number] Implanted:Qty: 1 on 11/07/2024 by Regianld Xiong MD at [facility] Right: Hip Biocomposites 05/06/2027 620-010 / / [id number] Synthes Screw Bone 2.4x8mm Volt T8 02.424.108 - [id number] Implanted:Qty: 2 on 11/07/2024 by Reginald Xiong MD at [facility] Right: Hip Synthes 424.108 / / Synthes Screw Bone 2.4x10mm Volt T8 02.424.110 - [id number] Implanted:Qty: 3 on 11/07/2024 by Reginald Xiong MD at [facility] Right: Hip Synthes 424.110 / / Depuy [employer] Inc [place] 6.5mm 20mm Acetabular Cancellous Screw Bone Sterile 1217-20-500 - [id number] Implanted:Qty: 1 on 11/07/2024 by Reginald Xiong MD at [facility] Right: Hip [employer] 1217-20-500 / / Synthes Screw Bone 2.4x10mm Volt T8 02.424.310 - [id number] Implanted:Qty: 3 on 11/07/2024 by Reginald Xiong MD at [facility] Right: Hip Synthes 424.310 / / Synthes Screw Bone 2.4x11mm Volt T8 02.424.311 - [id number] Implanted:Qty: 1 on 11/07/2024 by Reginald Xiong MD at [facility] Right: Hip Synthes 02.424.311 / / Synthes Plate Bone 38x2.4mm 6h Volt 02.424.026 - [id number] Implanted:Qty: 1 on 11/07/2024 by Reginald Xiong MD at [facility] Right: Hip Synthes 02.424.026 / / Synthes Plate Bone 2.4mm 7h Volt 02.424.003 - [id number] Implanted:Qty: 1 on 11/07/2024 by Reginald Xiong MD at [facility] Right: Hip Synthes 424.003 / / Synthes 4.5mm 8mm 48mm Self Tap Large Hexagonal Socket Cortex Screw Bone 214.848 - [id number] Implanted:Qty: 1 on 11/07/2024 by Reginald Xiong MD at [facility] Right: Hip Synthes 214.848 / / Synthes 4.5mm 8mm 52mm Self Tap Large Hexagonal Socket Cortex Screw Bone 214.852 - [id number] Implanted:Qty: 1 on 11/07/2024 by Reginald Xiong MD at [facility] Right: Hip Synthes 214.852 / / Synthes 3.5mm 70mm Self Tap Lock Variable Angle Stardrive T15 Screw Bone 02.127.170 - [id number] Implanted:Qty: 3 on 11/07/2024 by Reginald Xiong MD at [facility] Right: Hip Synthes 02.127.170 / / Synthes 3.5mm 85mm Self Tap Lock Variable Angle Stardrive T15 Screw Bone 02.127.185 - [id number] Implanted:Qty: 1 on 11/07/2024 by Reginald Xiong MD at [facility] Right: Hip Synthes 02.127.185 / / Synthes 3.5mm 6mm 60mm 2.5mm Self Tap Small Hexagonal Socket Low Profile 204.860 - [id number] Implanted:Qty: 1 on 11/07/2024 by Reginald Xiong MD at [facility] Right: Hip Synthes 204.860 / / Synthes Screw Bone Cortical St Full Thread Lcp 3.5x80mm Ss 204.880 - [id number] Implanted:Qty: 1 on 11/07/2024 by Reginald Xiong MD at [facility] Right: Hip Synthes 204.880 / / Synthes 1.7mm 750mm Crimp Cerclage Cable Orthopedic Stainless Steel 298.801.01s - [id number] Implanted:Qty: 1 on 11/07/2024 by Reginald Xiong MD at [facility] Right: Hip Synthes 298.801.01S / / Synthes 3.5mm 6mm 90mm 2.5mm Self Tap Small Hexagonal Socket Low Profile 204.890 - [id number] Implanted:Qty: 1 on 11/07/2024 by Reginald Xiong MD at [facility] Right: Hip Synthes 204.890 / / Synthes 3.5mm 80mm Self Tap Lock Variable Angle Stardrive T15 Screw Bone 02.127.180 - [id number] Implanted:Qty: 1 on 11/07/2024 by Reginald Xiong MD at [facility] Right: Hip Synthes 02.127.180 / / Synthes 3.5mm 90mm Self Tap Lock Variable Angle Stardrive T15 Screw Bone 02.127.190 - [id number] Implanted:Qty: 2 on 11/07/2024 by Reginald Xiong MD at [facility] Right: Hip Synthes I 02.127.190 / / Synthes 4.5mm 8mm 36mm Self Tap Large Hexagonal Socket Cortex Screw Bone 214.836 - [id number] Implanted:Qty: 1 on 11/07/2024 by Reginald Xiong MD at [facility] Right: Hip Synthes 214.836 / / Synthes Screw Bone Compression St Full Thread Locking Lcp Va 3.5x10mm Ss 02.127.110 - [id number] Implanted:Qty: 2 on 11/07/2024 by Reginald Xiong MD at [facility] Right: Hip Synthes 02.127.110 / / Synthes Screw Bone Compression St Full Thread Locking Lcp Va 3.5x16mm Ss 02.127.116 - [id number] Implanted:Qty: 2 on 11/07/2024 by Reginald Xiong MD at [facility] Right: Hip Synthes 02.127.116 / / Synthes Screw Bone Compression St Full Thread Locking Lcp Va 3.5x14mm Ss 02.127.114 - [id number] Implanted:Qty: 2 on 11/07/2024 by Reginald Xiong MD at [facility] Right: Hip Synthes 02.127.114 / / Synthes Screw Bone Compression St Full Thread Locking Lcp Va 3.5x12mm Ss 02.127.112 - [id number] Implanted:Qty: 1 on 11/07/2024 by Reginald Xiong MD at [facility] Right: Hip Synthes I 02.127.112 / / Synthes 3.5mm 22mm Self Tap Lock Variable Angle Stardrive T15 Screw Bone 02.127.122 - [id number] Implanted:Qty: 1 on 11/07/2024 by Reginald Xiong MD at [facility] Right: Hip Synthes I 02.127.122 / / Synthes Plate Bone 11 Hole Right 3.5/4.5mm 02.221.124s - [id number] Implanted:Qty: 1 on 11/07/2024 by Reginald Xiong MD at [facility] Right: Hip Synthes I 02.221.124S / / Synthes 1.7mm 750mm Crimp Cerclage Cable Orthopedic Stainless Steel 298.801.01s - [id number] Implanted:Qty: 1 on 11/07/2024 by Reginald Xiong MD at [facility] Right: Hip Synthes 298.801.01S / / Synthes Plate Bone Ring Attachment Small Right 3.5mm 02.221.100s - [id number] Implanted:Qty: 1 on 11/07/2024 by Reginald Xiong MD at [facility] Right: Hip Synthes I 02.221.100S / / Synthes Plate Bone 4 Hole Span Attachment Large Right 3.5mm 02.221.152s - [id number] Implanted:Qty: 1 on 11/07/2024 by Reginald Xiong MD at [facility] Right: Hip Synthes I 02.221.152S / / Synthes 4.5mm 2 Part Connect Stardrive T15 Screw Bone Stainless Steel 02.120.606s - [id number] Implanted:Qty: 2 on 11/07/2024 by Reginald Xiong MD at [facility] Right: Hip Synthes I 02.120.606S / / Synthes Screw 3.5mm 52mm Bone Stainless Steel T15 Strdrv Rces Lkng 02.127.152 - [id number] Implanted:Qty: 1 on 11/07/2024 by Reginald Xiong MD at [facility] Right: Hip Synthes I 02.127.152 / / Synthes Screw Bone Compression St Full Thread Locking Lcp Va 3.5x54mm Ss 02.127.154 - [id number] Implanted:Qty: 1 on 11/07/2024 by Reginald Xiong MD at [facility] Right: Hip Synthes 02.127.154 / / Synthes 1.7mm 750mm Crimp Cerclage Cable Orthopedic Stainless Steel 298.801.01s - [id number] Implanted:Qty: 2 on 11/07/2024 by Reginald Xiong MD at [facility] Right: Hip Synthes 298.801.01S / / Synthes 1.7mm 750mm Crimp Cerclage Cable Orthopedic Stainless Steel 298.801.01s - [id number] Implanted:Qty: 1 on 11/07/2024 by Reginald Xiong MD at [facility] Right: Hip Synthes 298.801.01S / / Synthes 1.7mm 750mm Crimp Cerclage Cable Orthopedic Stainless Steel 298.801.01s - [id number] Implanted:Qty: 2 on 11/07/2024 by Reginald Xiong MD at [facility] Right: Hip Synthes 298.801.01S / / Synthes Pin Pstn Threaded Comp Ss 4.5mm Lcp 298.803s - [id number] Implanted:Qty: 2 on 11/07/2024 by Reginald Xiong MD at [facility] Right: Hip Synthes 298.803S / / Synthes Pin Pstn Threaded Comp Ss 4.5mm Lcp 298.803s - [id number] Implanted:Qty: 1 on 11/07/2024 by Reginald Xiong MD at [facility] Right: Hip Synthes 298.803S / / Explanted Type Area Student Finance Specialist Device Identifier Shelf Expiration Date Model / Serial / Lot Synthes 1.7mm 750mm Crimp Cerclage Cable Orthopedic Stainless Steel 298.801.01s - [id number] Explanted:Qty: 2 on 11/07/2024 at [facility] Right: Hip Synthes 02/05/2029 298.801.01S / / [id number] Synthes 1.7mm 750mm Crimp Cerclage Cable Orthopedic Stainless Steel 298.801.01s - [id number] Explanted:Qty: 1 on 11/07/2024 at [facility] Right: Hip Synthes 03/08/2029 298.801.01S / / [id number] Synthes 1.7mm 750mm Crimp Cerclage Cable Orthopedic Stainless Steel 298.801.01s - [id number] Explanted:Qty: 1 on 11/07/2024 at [facility] Right: Hip Synthes 05/06/2029 298.801.01S / / [id number] Procedures Procedure Name Priority Date/Time Associated Diagnosis Comments XR FEMUR RIGHT 2 OR MORE VIEWS Schedule Routine, Read Routine (OP Routine) 01/23/2025 10:15 AM [facility] Orthopedic aftercare XR HIP RIGHT W PELVIS 2 OR 3 VIEWS Schedule Routine, Read Routine (OP Routine) 01/23/2025 10:15 AM [facility] Orthopedic aftercare EGFR Routine 01/12/2025 10:56 AM [employer] [employer] Bilateral carotid artery stenosis Alcohol use Hypo-osmolality and hyponatremia COMPREHENSIVE METABOLIC PANEL Routine 01/12/2025 10:56 AM [employer] Bilateral carotid artery stenosis Alcohol use Hypo-osmolality and hyponatremia VITAMIN B1 Routine 01/12/2025 10:56 AM [facility] [employer] Alcohol use VITAMIN D 25 HYDROXY Routine 01/12/2025 10:56 AM [employer] [employer] Low bone mass VITAMIN B12 Routine 01/12/2025 10:56 AM [employer] [employer] Alcohol use THYROID FUNCTION CASCADE Routine 01/12/2025 10:56 AM [employer] [employer] Low bone mass LIPID PANEL Routine 01/12/2025 10:56 AM [facility] Bilateral carotid artery stenosis FOLATE Routine 01/12/2025 10:56 AM [employer] Alcohol use XR HIP RIGHT W PELVIS 2 OR 3 VIEWS Schedule Routine, Read Routine (OP Routine) 12/16/2024 10:08 AM CDT Orthopedic aftercare XR FEMUR RIGHT 2 OR MORE VIEWS Schedule Routine, Read Routine (OP Routine) 12/16/2024 10:08 AM CDT Orthopedic aftercare POSACONAZOLE LEVEL, TROUGH Routine 12/05/2024 2:56 PM CDT Therapeutic drug monitoring XR HIP RIGHT W PELVIS 2 OR 3 VIEWS Schedule Routine, Read Routine (OP Routine) 11/21/2024 1:43 PM CDT Orthopedic aftercare XR FEMUR RIGHT 2 OR MORE VIEWS Schedule Routine, Read Routine (OP Routine) 11/21/2024 1:43 PM CDT Orthopedic aftercare EGFR Routine 11/15/2024 9:56 PM CDT COMPREHENSIVE METABOLIC PANEL Routine 11/15/2024 9:56 PM CDT EGFR Routine 11/14/2024 10:10 PM CDT COMPREHENSIVE METABOLIC PANEL Routine 11/14/2024 10:10 PM CDT ASPERGILLUS GALACTOMANNAN ANTIGEN Routine 11/14/2024 10:10 PM CDT RPR Routine 11/14/2024 10:10 PM CDT HEPATITIS C ANTIBODY Routine 11/14/2024 10:10 PM CDT HEPATITIS B SURFACE ANTIGEN Routine 11/14/2024 10:10 PM CDT HIV 1/2 ANTIBODY PLUS P24 ANTIGEN Routine 11/14/2024 10:10 PM CDT EGFR Routine 11/13/2024 9:57 PM CDT BASIC METABOLIC PANEL Routine 11/13/2024 9:57 PM CDT EGFR Routine 11/13/2024 12:33 AM CDT BASIC METABOLIC PANEL Routine 11/13/2024 12:33 AM CDT COLONOSCOPY Routine 09/28/2024 CT LUNG CANCER SCREENING Schedule Routine, Read Routine (OP Routine) 05/02/2024 11:05 AM [employer] Cigarette nicotine dependence without complication SCREENING MAMMOGRAM BILATERAL W RJ Schedule Routine, Read Routine (OP Routine) 01/25/2024 DEXA AXIAL SKELETON BONE DENSITY 1 OR MORE SITES Schedule Routine, Read Routine (OP Routine) 12/24/2022 Screening for osteoporosis Postmenopausal from Last 3 Months or Most Recently Relevant to Health Maintenance Results * XR Femur Right 2 or More Views (01/23/2025 10:15 AM [employer]) Anatomical Region Laterality Modality Lower Extremities, Thigh, Femur Right Digital Radiography 01/23/2025 11:3 9 AM [employer] [employer] Impressions 01/23/2025 11:39 AM [employer] [employer] FINDINGS/IMPRESSION: Extensive hardware right femur consisting of right total hip arthroplasty with a longstem right femoral head component and lateral cortical impression plate overlying the lateral cortex proximal to distal femur stabilized by cerclage wires and lateral cortical compression plate overlying the lateral cortex distal femur stabilized by multiple screws. Osteopenia without acute fractures or dislocation. Ossification medial to right proximal femur. There is extensive right iliac and femoral artery calcification. Electronically signed by: Saray Sorensen M.D. Narrative 01/23/2025 11:39 AM [employer] RIGHT FEMUR 2 OR MORE VIEWS, DATE: 01/23/2025 10:30 AM INDICATION: ortho aftercare. Z 47.89 COMPARISON: None TECHNIQUE: AP and lateral views of the right femur including AP and following lateral view right hip and AP and lateral view right knee Procedure Note Saray Sorensen MD - 01/23/2025 RIGHT FEMUR 2 OR MORE VIEWS, DATE: 01/23/2025 10:30 AM INDICATION: ortho aftercare. Z 47.89 COMPARISON: None TECHNIQUE: AP and lateral views of the right femur including AP and following lateral view right hip and AP and lateral view right knee IMPRESSION: FINDINGS/IMPRESSION: Extensive hardware right femur consisting of right total hip arthroplasty with a longstem right femoral head component and lateral cortical impression plate overlying the lateral cortex proximal to distal femur stabilized by cerclage wires and lateral cortical compression plate overlying the lateral cortex distal femur stabilized by multiple screws. Osteopenia without acute fractures or dislocation. Ossification medial to right proximal femur. There is extensive right iliac and femoral artery calcification. Electronically signed by: Saray Sorensen M.D. Reginald Xiong MD IMG XR PROCEDURES Final Result * XR Hip Right 2 or 3 Views W Pelvis (01/23/2025 10:15 AM [employer]) Anatomical Region Laterality Modality Lower Extremities, Hip, Pelvis Right D igital Radiography 01/23/2025 12:1 1 PM [employer] Impressions 01/23/2025 12:11 PM [employer] FINDINGS/IMPRESSION: Partially visualized right total hip arthroplasty with internal fixation hardware overlying the right proximal femur in near-anatomic alignment. Corticated bone fragment or heterotopic ossification medial to right proximal femur unchanged. Distal stem femoral head component and distal internal fixation hardware not included and not evaluated. Calcification bilateral iliac and femoral arteries. Air and stool obscuring details of sacrum. Osteopenia bony structures without large acute fracture identified. Surgical clips low pelvis. Electronically signed by: Saray Sorensen M.D. Narrative 01/23/2025 12:11 PM [employer] RIGHT HIP WITH PELVIS 2-3 VIEWS, DATE: 01/23/2025 10:45 AM INDICATION: Orthopedic Aftercare. Post surgery. Z 47.89 COMPARISON: 12/16/2024 TECHNIQUE: AP and crosstable lateral Procedure Note Saray Sorensen MD - 01/23/2025 RIGHT HIP WITH PELVIS 2-3 VIEWS, DATE: 01/23/2025 10:45 AM INDICATION: Orthopedic Aftercare. Post surgery. Z 47.89 COMPARISON: 12/16/2024 TECHNIQUE: AP and crosstable lateral IMPRESSION: FINDINGS/IMPRESSION: Partially visualized right total hip arthroplasty with internal fixation hardware overlying the right proximal femur in near-anatomic alignment. Corticated bone fragment or heterotopic ossification medial to right proximal femur unchanged. Distal stem femoral head component and distal internal fixation hardware not included and not evaluated. Calcification bilateral iliac and femoral arteries. Air and stool obscuring details of sacrum. Osteopenia bony structures without large acute fracture identified. Surgical clips low pelvis. Electronically signed by: Saray Sorensen M.D. Reginald Xiong MD IMG XR PROCEDURES Final Result * eGFR (01/12/2025 10:56 AM [employer]) [facility] eGFR >90 >=60 mL/min/1. 73 m2 Comment: Interpretive Data Reference Interval Normal >/= 90 mL/min/1.73m2 Mildly decreased* 60 - 89 mL/min/1.73m2 Mildly to moderately decreased 45 - 59 mL/min/1.73m2 Moderately to severely decreased 30 - 44 mL/min/1.73m2 Severely decreased 15 - 29 mL/min/1.73m2 Kidney Failure < 15 mL/min/1.73m2 *Relative to young adult level Estimated glomerular filtration rate is determined by the 2020 CKD-EPI equation recommended by the National Kidney Foundation (A Unifying Approach to GFR Estimation: Recommendations of the NKF-ASK Task Force on Reassessing the Inclusion of Race in Diagnosing Kidney Disease, JASN 2020). The CKD-EPI equation should not be used for patients with unstable renal function and has not been validated in children and those over 70. Current interpretive data was last reviewed 2021. Blood 01/12/2025 10:5 6 AM [employer] [employer]ER 01/12/2025 2:09 PM [employer] [employer] Biju Starkey MD LAB BLOOD ORDERABLES Fi nal Result Performing Organization Address [facility] Co de Phone Number [address] [place] [address] * Thyroid Function [place] (01/12/2025 10:56 AM S[facility]AND FLANGER) [facility] TSH 2.71 0.30 - 4.20 mcIUnit/mL Blood 01/12/2025 10:5 6 AM [employer]ER 01/12/2025 2:09 PM [employer] Biju Starkey MD LAB BLOOD ORDERABLES Fi nal Result Performing Organization Address [facility] de Phone Number [address] [place] [address] * Vitamin D 25 hydroxy (01/12/2025 10:56 AM [facility] [employer]ANGER) Vitamin D 25-OH 47.0 30.0 - 80.0 ng/mL Blood 01/12/2025 10:5 6 AM [employer]ER 01/12/2025 2:09 PM [employer] Biju Starkey MD LAB BLOOD ORDERABLES Fi nal Result Performing Organization Address [facility] de Phone Number ELIS [address] [address] * Vitamin B1 (01/12/2025 10:56 AM [facility] [employer]ER) [facility] Thiamine (Vit B1) 89 70 - 180 nmol/L [facility] Comment: ADDITIONAL INFORMATION This test was developed and its performance characteristics determined by [facility] in a manner consistent with CLIA requirements. This test has not been cleared or approved by the U.S. Food and Drug Administration. Test Performed by: [facility] [address] [place] [address] Life Skills Specialist: Kristen Marcum Ph.D.; CLIA# [id number] Blood 01/12/2025 10:5 6 AM [facility] [employer] 01/12/2025 2:03 PM [employer] [employer]ER Narrative ELIS - 01/18/2025 1:10 PM [employer] sent to lab; 01/13/2025 15:14:52 [employer] [employer] [id number] received in lab; 01/16/2025 10:22:27 [employer] [employer] [id number] received in lab; 01/17/2025 13:02:34 [employer] [employer]ER [id number] received in lab; 01/18/2025 11:30:33 [employer]ER [id number] Biju Starkey MD LAB BLOOD ORDERABLES Fi nal Result Performing Organization Address [facility]/ZIP Co de Phone Number EL[facility] [address] [address] [facility] * Folate (01/12/2025 10:56 AM [facility]AND [facility]ANGER) Pathologist [facility] Folic acid 11.1 >=5.0 ng/mL Blood 01/12/2025 10:5 6 AM [employer]BAND FLANGER 01/12/2025 2:09 PM [employer]BAND FLANGER Biju Starkey MD LAB BLOOD ORDERABLES Fi nal Result Performing Organization Address City/[facility] Co de Phone Number [address] [address] * Vitamin B12 (01/12/2025 10:56 AM SWEATBAND FLANGER) Pathologist [facility] Vitamin B12 708 230 - 1,250 pg/mL Blood 01/12/2025 10:5 6 AM [employer]AND [employer]ANGER 01/12/2025 2:09 PM [employer]ANGER Biju Starkey MD LAB BLOOD ORDERABLES Fi nal Result Performing Organization Address [facility] de Phone Number [address] [address] * (ABNORMAL) Lipid panel (01/12/2025 10:56 AM SWEATBAND FLANGER) [facility] Cholesterol 219(H) 30 - 199 mg/dL Comment: Interpretive Data Ages < or = 19 years Acceptable: <170 mg/dL Borderline high: 170-199 mg/dL High: >or= 200 mg/dL Ages > or = 20 years Desirable: <200 mg/dL Borderline high: 200-239 mg/dL High: >or= 240 mg/dL Literature References: 1. Expert Panel on Integrated Guidelines for Cardiovascular Health and Risk Reduction in Children and Adolescents. Pediatrics 2011;128:S213 2. NCEP Expert Panel. Circulation 2004;110:227 Current Interpretive Data was last revised on 2017. Triglycerides 108 <=149 mg/dL [facility] Comment: Interpretive Data Ages < or = 9 years Acceptable: <75 mg/dL Borderline high: 75-99 mg/dL High: >or= 100 mg/dL Ages 10 to 20 years Acceptable: <90 mg/dL Borderline high: 90-129 mg/dL High: >or= 130 mg/dL Ages > or = 20 years Desirable: <150 mg/dL Borderline high: 150-199 mg/dL High: 200-499 mg/dL Very high: >or= 499 mg/dL Literature References: 1. Expert Panel on Integrated Guidelines for Cardiovascular Health and Risk Reduction in Children and Adolescents. Pediatrics 2011;128:S213 2. NCEP Expert Panel. Circulation 2004;110:227 Current Interpretive Data was last revised on 2017. HDL 57 >=40 mg/dL [facility] Comment: Interpretive Data Ages < or = 19 years Acceptable: >45 mg/dL Borderline low: 40-45 mg/dL Low: <40 mg/dL Ages > or = 20 years Desirable: >or= 60 mg/dL Low: <40 mg/dL Literature References: 1. Expert Panel on Integrated Guidelines for Cardiovascular Health and Risk Reduction in Children and Adolescents. Pediatrics 2011;128:S213 2. NCEP Expert Panel. Circulation 2004;110:227 Current Interpretive Data was last revised on 2017. LDL, calculated 143(H) <=129 mg/dL [facility] Comment: Interpretive Data Ages < or = 19 years Acceptable: <110 mg/dL Borderline high: 110-129 mg/dL High: >or= 130 mg/dL Ages > or = 20 years Optimal: <100 mg/dL Near optimal: 100-129 mg/dL Borderline high: 130-159 mg/dL High: >160 mg/dL Calculated using the Bart LDL-C estimating equation. This equation was implemented on 2023. Prior to this date LDL-C was estimated using the Friedewald equation. Literature References: 1. Expert Panel on Integrated Guidelines for Cardiovascular Health and Risk Reduction in Children and Adolescents. Pediatrics 2011;128:S213 2. NCEP Expert Panel. Circulation 2004;110:227 3. Bart Cavazos al. VARGHESE Cardiol. 2020 July 07;5(5):540-548. doi: [email or web address] Current Interpretive Data was last revised on 2023. Non-HDL Cholesterol 162 mg/dL [facility] Comment: Interpretive Data Ages < or = 19 years Acceptable: <120 mg/dL Borderline high: 120-144 mg/dL High: >145 mg/dL Ages > or = 20 years When triglycerides are >200 mg/dL, Non-HDL cholesterol is a secondary target of therapy with treatment goals that are 30 mg/dL greater than the LDL cholesterol target. Literature References: 1. Expert Panel on Integrated Guidelines for Cardiovascular Health and Risk Reduction in Children and Adolescents. Pediatrics 2011;128:S213 2. NCEP Expert Panel. Circulation 2004;110:227 Current Interpretive Data was last revised on 2017. Chol/HDL ratio 4 [facility] Blood 01/12/2025 10:5 6 AM SWEATBAND FLANGER 01/12/2025 2:09 PM SWEATBAND FLANGER Narrative [facility] - 01/12/2025 3:00 PM [employer]AND [employer]ANGER Has the patient been fasting for 8 hours or more?->No Biju Starkey MD LAB BLOOD ORDERABLES Fi nal Result [facility] [address] [facility] [place] [address] * (ABNORMAL) Comprehensive metabolic panel (01/12/2025 10:56 AM SWEATBAND FLANGER) Sodium 126(L) 135 - 145 mmol/L Potassium, pl 4.6 3.3 - 4.9 mmol/L [facility] Chloride 90(L) 97 - 110 mmol/L [facility] CO2 26 22 - 32 mmol/L [facility] Anion gap 10 2 - 15 mmol/L [facility] BUN 12 6 - 25 mg/dL [facility] Creatinine 0.63 0.60 - 1.10 mg/dL [facility] Glucose 100 70 - 199 mg/dL [facility] Comment: Interpretive Data Fasting glucose >/= 126 mg/dl is diagnostic for diabetes. Fasting is defined as no caloric intake for at least 8 hours. Fasting glucose between 100 mg/dl to 125 mg/dl is diagnostic of prediabetes. In a patient with classic symptoms of hyperglycemia or hyperglycemic crisis, a random glucose >/= 200 mg/dl is diagnostic for diabetes. In the absence of unequivocal hyperglycemia, results should be confirmed by repeat testing. The classification and Diagnosis of Diabetes Diabetes Care 2021; 46: S19-S40. Current interpretive data was last revised 2022. Calcium 9.6 8.5 - 10.3 mg/dL [facility] Bilirubin, total 0.4 0.1 - 1.2 mg/dL [facility] Protein, pl 7.7 6.5 - 8.5 g/dL [facility] Albumin 4.1 3.5 - 5.0 g/dL [facility] Alk phos 171(H) 40 - 130 Units/L [facility] ALT 11 7 - 45 Units/L [facility] AST 25 10 - 45 Units/L [facility] Blood 01/12/2025 10:5 6 AM [employer]AND FLANGER 01/12/2025 2:09 PM SWE[employer]BAND FLANGER us Biju Starkey MD LAB BLOOD ORDERABLES Fi nal Result [facility] [address] [facility] Department [place] [address] * XR Hip Right 2 or 3 Views W Pelvis (12/16/2024 10:08 AM CDT) Anatomical Region Laterality Modality Lower Extremities, Hip, Pelvis Right C omputed Radiography 12/16/2024 12:1 5 PM CDT Impressions 12/16/2024 12:55 PM CDT Revised right total hip arthroplasty with internal fixation of the right femur for management of a right proximal femoral periprosthetic fracture. Dictated by: Ezekiel Sesay MD The radiology attending physician has personally reviewed this study, and had reviewed and/or edited this written report and agrees with it. Electronically signed by: Yariel Bae M.D. Narrative 12/16/2024 12:55 PM CDT EXAMINATION: XR FEMUR RIGHT 2 OR MORE VIEWS, XR HIP RIGHT 2 OR 3 VIEWS W PELVIS HISTORY: Fracture, follow-up COMPARISON: 11/21/2024 FINDINGS: 2 radiographs of the right hip and pelvis as well as 4 radiographs of the right femur are submitted. There is a revised right total hip arthroplasty with internal fixation of the femur for management of a right proximal femoral periprosthetic fracture. Alignment is unchanged and near-anatomic. Note is made of a oblique fracture line mid femoral shaft distal to the femoral stem of the arthroplasty with some callus formation suggestive of healing nondisplaced fracture, likely reflecting the reported intraoperative fracture extension. There are atherosclerotic vascular calcifications. There is some developing heterotopic ossification in the medial thigh. Surgical marva in the pelvis. Mild left hip osteoarthritis. Lower lumbar degenerative disc disease. Mild knee osteoarthritis. Procedure Note Yariel Bae MD - 12/16/2024 EXAMINATION: XR FEMUR RIGHT 2 OR MORE VIEWS, XR HIP RIGHT 2 OR 3 VIEWS W PELVIS HISTORY: Fracture, follow-up COMPARISON: 11/21/2024 FINDINGS: 2 radiographs of the right hip and pelvis as well as 4 radiographs of the right femur are submitted. There is a revised right total hip arthroplasty with internal fixation of the femur for management of a right proximal femoral periprosthetic fracture. Alignment is unchanged and near-anatomic. Note is made of a oblique fracture line mid femoral shaft distal to the femoral stem of the arthroplasty with some callus formation suggestive of healing nondisplaced fracture, likely reflecting the reported intraoperative fracture extension. There are atherosclerotic vascular calcifications. There is some developing heterotopic ossification in the medial thigh. Surgical marva in the pelvis. Mild left hip osteoarthritis. Lower lumbar degenerative disc disease. Mild knee osteoarthritis. IMPRESSION: Revised right total hip arthroplasty with internal fixation of the right femur for management of a right proximal femoral periprosthetic fracture. Dictated by: Ezekiel Sesay MD The radiology attending physician has personally reviewed this study, and had reviewed and/or edited this written report and agrees with it. Electronically signed by: Yariel Bae M.D. Reginald Xiong MD IMG XR PROCEDURES Final Result * XR Femur Right 2 or More Views (12/16/2024 10:08 AM CDT) Anatomical Region Laterality Modality Lower Extremities, Thigh, Femur Right Computed Radiography 12/16/2024 12:1 5 PM CDT Impressions 12/16/2024 12:55 PM CDT Revised right total hip arthroplasty with internal fixation of the right femur for management of a right proximal femoral periprosthetic fracture. Dictated by: Ezekiel Sesay MD The radiology attending physician has personally reviewed this study, and had reviewed and/or edited this written report and agrees with it. Electronically signed by: Yariel Bae M.D. Narrative 12/16/2024 12:55 PM CDT EXAMINATION: XR FEMUR RIGHT 2 OR MORE VIEWS, XR HIP RIGHT 2 OR 3 VIEWS W PELVIS HISTORY: Fracture, follow-up COMPARISON: 11/21/2024 FINDINGS: 2 radiographs of the right hip and pelvis as well as 4 radiographs of the right femur are submitted. There is a revised right total hip arthroplasty with internal fixation of the femur for management of a right proximal femoral periprosthetic fracture. Alignment is unchanged and near-anatomic. Note is made of a oblique fracture line mid femoral shaft distal to the femoral stem of the arthroplasty with some callus formation suggestive of healing nondisplaced fracture, likely reflecting the reported intraoperative fracture extension. There are atherosclerotic vascular calcifications. There is some developing heterotopic ossification in the medial thigh. Surgical marva in the pelvis. Mild left hip osteoarthritis. Lower lumbar degenerative disc disease. Mild knee osteoarthritis. Procedure Note Yariel Bae MD - 12/16/2024 EXAMINATION: XR FEMUR RIGHT 2 OR MORE VIEWS, XR HIP RIGHT 2 OR 3 VIEWS W PELVIS HISTORY: Fracture, follow-up COMPARISON: 11/21/2024 FINDINGS: 2 radiographs of the right hip and pelvis as well as 4 radiographs of the right femur are submitted. There is a revised right total hip arthroplasty with internal fixation of the femur for management of a right proximal femoral periprosthetic fracture. Alignment is unchanged and near-anatomic. Note is made of a oblique fracture line mid femoral shaft distal to the femoral stem of the arthroplasty with some callus formation suggestive of healing nondisplaced fracture, likely reflecting the reported intraoperative fracture extension. There are atherosclerotic vascular calcifications. There is some developing heterotopic ossification in the medial thigh. Surgical marva in the pelvis. Mild left hip osteoarthritis. Lower lumbar degenerative disc disease. Mild knee osteoarthritis. IMPRESSION: Revised right total hip arthroplasty with internal fixation of the right femur for management of a right proximal femoral periprosthetic fracture. Dictated by: Ezekiel Sesay MD The radiology attending physician has personally reviewed this study, and had reviewed and/or edited this written report and agrees with it. Electronically signed by: Yariel Bae M.D. Reginald Xiong MD IMG XR PROCEDURES Final Result * Posaconazole level, trough (12/05/2024 2:56 PM CDT) Posaconazole, trough 2450 >700 ng/mL [facility] Comment: ADDITIONAL INFORMATION This test was developed and its performance characteristics determined by [facility] in a manner consistent with CLIA requirements. This test has not been cleared or approved by the U.S. Food and Drug Administration. Test Performed by: [facility] [address] [id number] Life Skills Specialist: Kristen Marcum Ph.D.; CLIA# [id number] Therapeutic range recommended by the [facility] Anti-Infective Panel and the [facility] Antibiotic Utilization Review Subcommittee: Treatment: >1250 ng/mL Prophylaxis: >700 ng/mL Current interpretive data was last revised and approved by [facility] Department of Laboratories manager medical writing Gadiel Bonner on 08/25/2013. Blood 12/05/2024 2:56 PM CDT 12/05/2024 7:32 PM CDT us Margret Fields BILINGUAL INSIDE SALES REPRESENTATIVE LAB BLOOD ORDERABLE S Final Result [facility] Department [place] [address] [facility] * XR Hip Right 2 or 3 Views W Pelvis (11/21/2024 1:43 PM CDT) Anatomical Region Laterality Modality Lower Extremities, Hip, Pelvis Right C omputed Radiography 11/21/2024 3:55 PM CDT Impressions 11/21/2024 5:19 PM CDT 1. Right total hip arthroplasty in near-anatomic alignment with a reduced and internally fixated right proximal femur periprosthetic fracture. Dictated by: Anna Morrison M.D. The radiology attending physician has personally reviewed this study, and had reviewed and/or edited this written report and agrees with it. Electronically signed by: Allen Sommer MD Narrative 11/21/2024 5:19 PM CDT EXAMINATION: XR FEMUR RIGHT 2 OR MORE VIEWS, XR HIP RIGHT 2 OR 3 VIEWS W PELVIS HISTORY: Hip pain COMPARISON: 11/07/2024 FINDINGS: 4 radiographs of the femur and one radiograph of the pelvis were submitted for interpretation. Right total hip arthroplasty in near-anatomic alignment. Unchanged reduction and internal fixation of the right proximal periprosthetic femur fracture. There are cerclage wires. The hardware appears intact. There are antibiotic beads. There are scattered atherosclerotic vascular calcifications. Procedure Note Allen Sommer MD - 11/21/2024 EXAMINATION: XR FEMUR RIGHT 2 OR MORE VIEWS, XR HIP RIGHT 2 OR 3 VIEWS W PELVIS HISTORY: Hip pain COMPARISON: 11/07/2024 FINDINGS: 4 radiographs of the femur and one radiograph of the pelvis were submitted for interpretation. Right total hip arthroplasty in near-anatomic alignment. Unchanged reduction and internal fixation of the right proximal periprosthetic femur fracture. There are cerclage wires. The hardware appears intact. There are antibiotic beads. There are scattered atherosclerotic vascular calcifications. IMPRESSION: 1. Right total hip arthroplasty in near-anatomic alignment with a reduced and internally fixated right proximal femur periprosthetic fracture. Dictated by: Anna Morrison M.D. The radiology attending physician has personally reviewed this study, and had reviewed and/or edited this written report and agrees with it. Electronically signed by: Allen Sommer MD Mary Alice Amato BILINGUAL INSIDE SALES REPRESENTATIVE IMG XR PROCEDURES Final R esult * XR Femur Right 2 or More Views (11/21/2024 1:43 PM CDT) Anatomical Region Laterality Modality Lower Extremities, Thigh, Femur Right Computed Radiography 11/21/2024 3:55 PM CDT Impressions 11/21/2024 5:19 PM CDT 1. Right total hip arthroplasty in near-anatomic alignment with a reduced and internally fixated right proximal femur periprosthetic fracture. Dictated by: Anna Morrison M.D. The radiology attending physician has personally reviewed this study, and had reviewed and/or edited this written report and agrees with it. Electronically signed by: Allen Sommer MD Narrative 11/21/2024 5:19 PM CDT EXAMINATION: XR FEMUR RIGHT 2 OR MORE VIEWS, XR HIP RIGHT 2 OR 3 VIEWS W PELVIS HISTORY: Hip pain COMPARISON: 11/07/2024 FINDINGS: 4 radiographs of the femur and one radiograph of the pelvis were submitted for interpretation. Right total hip arthroplasty in near-anatomic alignment. Unchanged reduction and internal fixation of the right proximal periprosthetic femur fracture. There are cerclage wires. The hardware appears intact. There are antibiotic beads. There are scattered atherosclerotic vascular calcifications. Procedure Note Allen Sommer MD - 11/21/2024 EXAMINATION: XR FEMUR RIGHT 2 OR MORE VIEWS, XR HIP RIGHT 2 OR 3 VIEWS W PELVIS HISTORY: Hip pain COMPARISON: 11/07/2024 FINDINGS: 4 radiographs of the femur and one radiograph of the pelvis were submitted for interpretation. Right total hip arthroplasty in near-anatomic alignment. Unchanged reduction and internal fixation of the right proximal periprosthetic femur fracture. There are cerclage wires. The hardware appears intact. There are antibiotic beads. There are scattered atherosclerotic vascular calcifications. IMPRESSION: 1. Right total hip arthroplasty in near-anatomic alignment with a reduced and internally fixated right proximal femur periprosthetic fracture. Dictated by: Anna Morrison M.D. The radiology attending physician has personally reviewed this study, and had reviewed and/or edited this written report and agrees with it. Electronically signed by: Allen Sommer MD Mary Alice Amato NP IMG XR PROCEDURES Final R esult * eGFR (11/15/2024 9:56 PM CDT) Pathologist [facility] eGFR 73 >=60 mL/min/1. 73 m2 Comment: Interpretive Data Reference Interval Normal >/= 90 mL/min/1.73m2 Mildly decreased* 60 - 89 mL/min/1.73m2 Mildly to moderately decreased 45 - 59 mL/min/1.73m2 Moderately to severely decreased 30 - 44 mL/min/1.73m2 Severely decreased 15 - 29 mL/min/1.73m2 Kidney Failure < 15 mL/min/1.73m2 *Relative to young adult level Estimated glomerular filtration rate is determined by the 2020 CKD-EPI equation recommended by the National Kidney Foundation (A Unifying Approach to GFR Estimation: Recommendations of the NKF-ASK Task Force on Reassessing the Inclusion of Race in Diagnosing Kidney Disease, JASN 202). The CKD-EPI equation should not be used for patients with unstable renal function and has not been validated in children and those over 70. Current interpretive data was last reviewed 2021. Blood 11/15/2024 9:56 PM CDT 11/15/2024 10:48 PM CDT us Ely Mccord NP LAB BLOOD ORDERABLES Safia paz Result [facility] [address] [facility] Department [place] [address] * (ABNORMAL) Comprehensive metabolic panel (11/15/2024 9:56 PM CDT) Sodium 135 135 - 145 mmol/L Potassium, pl 4.5 3.3 - 4.9 mmol/L [facility] Chloride 99 97 - 110 mmol/L [facility] CO2 25 22 - 32 mmol/L [facility] Anion gap 11 2 - 15 mmol/L [facility] BUN 22 6 - 25 mg/dL [facility] Creatinine 0.86 0.60 - 1.10 mg/dL [facility] Glucose 100 70 - 199 mg/dL [facility] Comment: Interpretive Data Fasting glucose >/= 126 mg/dl is diagnostic for diabetes. Fasting is defined as no caloric intake for at least 8 hours. Fasting glucose between 100 mg/dl to 125 mg/dl is diagnostic of prediabetes. In a patient with classic symptoms of hyperglycemia or hyperglycemic crisis, a random glucose >/= 200 mg/dl is diagnostic for diabetes. In the absence of unequivocal hyperglycemia, results should be confirmed by repeat testing. The classification and Diagnosis of Diabetes Diabetes Care 2021; 46: S19-S40. Current interpretive data was last revised 2022. Calcium 9.6 8.5 - 10.3 mg/dL [facility] Bilirubin, total 0.2 0.1 - 1.2 mg/dL [facility] Protein, pl 6.5 6.5 - 8.5 g/dL [facility] Albumin 2.9(L) 3.5 - 5.0 g/dL [facility] Alk phos 67 40 - 130 Units/L [facility] ALT 14 7 - 45 Units/L [facility] AST 50(H) 10 - 45 Units/L [facility] Blood 11/15/2024 9:56 PM CDT 11/15/2024 10:48 PM CDT us Ely Mccord BILINGUAL INSIDE SALES REPRESENTATIVE LAB BLOOD ORDERABLES Safia l Result [facility] Department [place] [address] * eGFR (11/14/2024 10:10 PM CDT) eGFR 90 >=60 mL/min/1. 73 m2 Comment: Interpretive Data Reference Interval Normal >/= 90 mL/min/1.73m2 Mildly decreased* 60 - 89 mL/min/1.73m2 Mildly to moderately decreased 45 - 59 mL/min/1.73m2 Moderately to severely decreased 30 - 44 mL/min/1.73m2 Severely decreased 15 - 29 mL/min/1.73m2 Kidney Failure < 15 mL/min/1.73m2 *Relative to young adult level Estimated glomerular filtration rate is determined by the 2020 CKD-EPI equation recommended by the National Kidney Foundation (A Unifying Approach to GFR Estimation: Recommendations of the NKF-ASK Task Force on Reassessing the Inclusion of Race in Diagnosing Kidney Disease, JASN 2020). The CKD-EPI equation should not be used for patients with unstable renal function and has not been validated in children and those over 70. Current interpretive data was last reviewed 2021. Blood 11/14/2024 10:1 0 PM CDT 11/14/2024 10:50 PM CDT us Yeimy Arauz DO LAB BLOOD ORDERABLE S Final Result [facility] [place] [address] * HIV 1/2 Antibody plus p24 Antigen Blood (11/14/2024 10:10 PM CDT) [facility] HIV 1/2 ab + p24 ag Nonreactive Nonreactive Comment:Nonreactive for HIV- 1 antigen and HIV-1/HIV-2 antibodies. No laboratory evidence of HIV infection. If acute HIV infection is suspected, consider testing for HIV-1 RNA. Current interpretive data was last revised on 21. Blood 11/14/2024 10:1 0 PM CDT 11/14/2024 10:49 PM CDT Ely Mccord NP LAB MICROBIOLOGY - GENERA L ORDERABLES Final Result Performing Organization Address [facility] de Phone Number [facility] [place] [address] * Hepatitis C antibody Blood (11/14/2024 10:10 PM CDT) [facility] Hep C Ab Nonreactive Nonreactive Comment:Antibodies to HCV no t detected. Does NOT exclude the possibility of recent exposure to HCV. Current interpretive data was last revised on 21 Blood 11/14/2024 10:1 0 PM CDT 11/14/2024 11:07 PM CDT Ely Mccord NP LAB MICROBIOLOGY - GENERA L ORDERABLES Final Result Performing Organization Address [facility] Co de Phone Number [facility] [place] [address] * Aspergillus galactomannan antigen Blood (11/14/2024 10:10 PM CDT) [facility] Aspergillus galactomannan Ag <0.500 <0.5 Index [facility] Comment: ADDITIONAL INFORMATION This is a qualitative test and the resulted index value is not indicative of disease severity. Serial testing is recommended for patients at high risk for invasive aspergillosis. This assay was performed using the FDA-cleared [employer] Aspergillus Galactomannan EIA. Test Performed by: [facility] [address] [place] [address] Life Skills Specialist: Kristen Marcum Ph.D.; CLIA# [id number] Blood 11/14/2024 10:1 0 PM CDT 11/14/2024 10:48 PM CDT Luz Hylton MD LAB MICROBIOLOGY - GENERAL ORDERABLES Final Result Performing Organization Address City/[facility] Co de Phone Number [facility] [place] [address] [facility] * RPR Blood (11/14/2024 10:10 PM CDT) RPR Nonreactive Nonreactive Blood 11/14/2024 10:1 0 PM CDT 11/14/2024 10:50 PM CDT Ely Mccord NP LAB MICROBIOLOGY - GENERA L ORDERABLES Final Result Performing Organization Address [facility] Co de Phone Number [facility] [place] [address] * Hepatitis B Surface Antigen Blood (11/14/2024 10:10 PM CDT) HepBsAg Nonreactive Nonreactive Blood 11/14/2024 10:1 0 PM CDT 11/14/2024 11:07 PM CDT Ely Mccord NP LAB MICROBIOLOGY - GENERA L ORDERABLES Final Result Performing Organization Address City/[facility] Co de Phone Number [facility] Department [place] [address] * (ABNORMAL) Comprehensive metabolic panel (11/14/2024 10:10 PM CDT) Sodium 134(L) 135 - 145 mmol/L Potassium, pl 4.4 3.3 - 4.9 mmol/L [facility] Chloride 97 97 - 110 mmol/L [facility] CO2 27 22 - 32 mmol/L [facility] Anion gap 10 2 - 15 mmol/L [facility] BUN 19 6 - 25 mg/dL [facility] Creatinine 0.72 0.60 - 1.10 mg/dL [facility] Glucose 94 70 - 199 mg/dL [facility] Comment: Interpretive Data Fasting glucose >/= 126 mg/dl is diagnostic for diabetes. Fasting is defined as no caloric intake for at least 8 hours. Fasting glucose between 100 mg/dl to 125 mg/dl is diagnostic of prediabetes. In a patient with classic symptoms of hyperglycemia or hyperglycemic crisis, a random glucose >/= 200 mg/dl is diagnostic for diabetes. In the absence of unequivocal hyperglycemia, results should be confirmed by repeat testing. The classification and Diagnosis of Diabetes Diabetes Care 2021; 46: S19-S40. Current interpretive data was last revised 2022. Calcium 10.2 8.5 - 10.3 mg/dL [facility] Bilirubin, total 0.4 0.1 - 1.2 mg/dL [facility] Protein, pl 7.1 6.5 - 8.5 g/dL [facility] Albumin 3.1(L) 3.5 - 5.0 g/dL [facility] Alk phos 67 40 - 130 Units/L [facility] ALT 17 7 - 45 Units/L [facility] AST 48(H) 10 - 45 Units/L [facility] Blood 11/14/2024 10:1 0 PM CDT 11/14/2024 10:50 PM CDT us Yeimy Arauz DO LAB BLOOD ORDERABLE S Final Result [facility] Department [place] [address] * eGFR (11/13/2024 9:57 PM CDT) eGFR 73 >=60 mL/min/1. 73 m2 Comment: Interpretive Data Reference Interval Normal >/= 90 mL/min/1.73m2 Mildly decreased* 60 - 89 mL/min/1.73m2 Mildly to moderately decreased 45 - 59 mL/min/1.73m2 Moderately to severely decreased 30 - 44 mL/min/1.73m2 Severely decreased 15 - 29 mL/min/1.73m2 Kidney Failure < 15 mL/min/1.73m2 *Relative to young adult level Estimated glomerular filtration rate is determined by the 2020 CKD-EPI equation recommended by the National Kidney Foundation (A Unifying Approach to GFR Estimation: Recommendations of the NKF-ASK Task Force on Reassessing the Inclusion of Race in Diagnosing Kidney Disease, JASN 2020). The CKD-EPI equation should not be used for patients with unstable renal function and has not been validated in children and those over 70. Current interpretive data was last reviewed 2021. Blood 11/13/2024 9:57 PM CDT 11/13/2024 10:32 PM CDT Desiree River [employer] SAL[employer] REPRESENTATIVE LAB BLOOD ORDERABLES [facility] Result [facility] Department [place] [address] * (ABNORMAL) Basic metabolic panel (11/13/2024 9:57 PM CDT) Pathologist [facility] Sodium 130(L) 135 - 145 mmol/L Potassium, pl 4.1 3.3 - 4.9 mmol/L [facility] Chloride 94(L) 97 - 110 mmol/L [facility] CO2 28 22 - 32 mmol/L [facility] Anion gap 8 2 - 15 mmol/L [facility] BUN 19 6 - 25 mg/dL [facility] Creatinine 0.86 0.60 - 1.10 mg/dL [facility] Glucose 113 70 - 199 mg/dL [facility] Comment: Interpretive Data Fasting glucose >/= 126 mg/dl is diagnostic for diabetes. Fasting is defined as no caloric intake for at least 8 hours. Fasting glucose between 100 mg/dl to 125 mg/dl is diagnostic of prediabetes. In a patient with classic symptoms of hyperglycemia or hyperglycemic crisis, a random glucose >/= 200 mg/dl is diagnostic for diabetes. In the absence of unequivocal hyperglycemia, results should be confirmed by repeat testing. The classification and Diagnosis of Diabetes Diabetes Care 202; 46: S19-S40. Current interpretive data was last revised 2022. Calcium 9.5 8.5 - 10.3 mg/dL [facility] Blood 11/13/2024 9:57 PM CDT 11/13/2024 10:32 PM CDT us Desiree River NP LAB BLOOD ORDERABLES Fi nal Result [facility] Department [place] [address] * eGFR (11/13/2024 12:33 AM CDT) eGFR >90 >=60 mL/min/1. 73 m2 Comment: Interpretive Data Reference Interval Normal >/= 90 mL/min/1.73m2 Mildly decreased* 60 - 89 mL/min/1.73m2 Mildly to moderately decreased 45 - 59 mL/min/1.73m2 Moderately to severely decreased 30 - 44 mL/min/1.73m2 Severely decreased 15 - 29 mL/min/1.73m2 Kidney Failure < 15 mL/min/1.73m2 *Relative to young adult level Estimated glomerular filtration rate is determined by the 2020 CKD-EPI equation recommended by the National Kidney Foundation (A Unifying Approach to GFR Estimation: Recommendations of the NKF-ASK Task Force on Reassessing the Inclusion of Race in Diagnosing Kidney Disease, JASN 2020). The CKD-EPI equation should not be used for patients with unstable renal function and has not been validated in children and those over 70. Current interpretive data was last reviewed 2021. Blood 11/13/2024 12:3 3 AM CDT 11/13/2024 1:29 AM CDT Desiree River NP LAB BLOOD ORDERABLES Fi nal Result Performing Organization Address City/[facility]/ZIP Co de Phone Number [facility] Department [place] [address] * (ABNORMAL) Basic metabolic panel (11/13/2024 12:33 AM CDT) Pathologist [facility] Sodium 134(L) 135 - 145 mmol/L Potassium, pl 4.3 3.3 - 4.9 mmol/L [facility] Chloride 97 97 - 110 mmol/L [facility] CO2 31 22 - 32 mmol/L [facility] Anion gap 6 2 - 15 mmol/L [facility] BUN 17 6 - 25 mg/dL [facility] Creatinine 0.69 0.60 - 1.10 mg/dL [facility] Glucose 103 70 - 199 mg/dL [facility] Comment: Interpretive Data Fasting glucose >/= 126 mg/dl is diagnostic for diabetes. Fasting is defined as no caloric intake for at least 8 hours. Fasting glucose between 100 mg/dl to 125 mg/dl is diagnostic of prediabetes. In a patient with classic symptoms of hyperglycemia or hyperglycemic crisis, a random glucose >/= 200 mg/dl is diagnostic for diabetes. In the absence of unequivocal hyperglycemia, results should be confirmed by repeat testing. The classification and Diagnosis of Diabetes Diabetes Care 2021; 46: S19-S40. Current interpretive data was last revised 2022. Calcium 10.2 8.5 - 10.3 mg/dL [facility] Blood 11/13/2024 12:3 3 AM CDT 11/13/2024 1:29 AM CDT Desiree River NP LAB BLOOD ORDERABLES Fi nal Result Performing Organization Address [facility] Co de Phone Number [facility] Department [place] [address] * Colonoscopy (09/28/2024) Anatomical Region Laterality Modality Other us Historical Provider ENDOSCOPY PROCEDURES Safia l Result * CT Lung Cancer Screening (05/02/2024 11:05 AM [facility]) Anatomical Region Laterality Modality Chest N/A Computed Tomogra phy 05/04/2024 4:42 PM [facility] Narrative 05/04/2024 4:57 PM [facility] EXAM DESCRIPTION: CT LUNG CANCER SCREENING REASON [...] with adjacent scarring similar in appearance to 2021 examination (3; 90). Unchanged triangular-shaped left apical [...] Aiden Hines M.D. NS: NS Report ID: [id number] Reading Location: [place] [address] us Biju Starkey MD IMG CT PROCEDURES Final Result * Screening Mammogram Bilateral W Rj (01/25/2024) Anatomical Region Laterality Modality Breast Bilateral Mammography Generic External Data Provider IMG MAMMO PROCEDU RES Final Result * Dexa Axial Skeleton Bone Density 1 or 2 Site (12/24/2022) Anatomical Region Laterality Modality Body N/A Radiographic Judith ging Yocasta Keating DO IMG DXA PROCEDURES Final R esult from Last 3 Months or Most Recently Relevant to Health Maintenance Insurance [facility] MEDICARE ADVANTAGE [facility] MEDIC[facility] Address: [address] [address] [facility] MEDICARE ADVANTAGE [facility] MEDIC[facility] Address: [address] [address] , [facility] MEDICARE ADVANTAGE [facility] MEDIC[facility] Address: [address] [address] Advance Directives For more information, please contact: [phone] * Full Code (Latest Code Status on File) Date Activated Date Inactivated Comments 11/05/2024 5:54 AM 11/16/2024 8:37 PM * Full Code Date Activated Date Inactivated Comments 12/18/2020 7:17 AM 12/18/2020 1:45 PM * Full Code Date Activated Date Inactivated Comments 12/18/2020 7:17 AM 12/18/2020 7:17 AM Care Teams Farmworker Grain Relationship Specialty Start Date End Date Biju Starkey MD [address] [facility] [address] [place] [address] PCP - General Family Medicine 12/30/23 Te Hudson MD [address] [place] [address] [address] [facility] [place] [address] Consulting Physician Neurology 12/10/22 Facundo Garcia MD [address] [facility] [address] [place] [address] Consulting Physician Nephrology 12/30/23 Holden Vargas MD [address] [phone] [place] [address] Consulting Physician Plastic Surgery 12/30/23
--- OUTSIDE RECORDS SUMMARY | 2025-02-11 19:44 | XMS_ITS | Encounter Summary ---
Author Organization [facility] Healthcare Address [address] [place] [address] Care Team Providers Care Manager Commodities Name Role Phone Te Hudson MD Unavailable [phone] Biju Starkey MD Primary Care Provider Facundo Garcia MD Unavailable [phone] Holden Vargas MD Unavailable [phone] Reason for Visit * Auth/Cert (Routine) Specialty Diagnoses / Procedures Referred By Maribel mann Referred To Contact Diagnoses History of colonic polyps Encounter for screening colonoscopy Family history of colon cancer History of colonic polyps [Z86.0100] Encounter for screening colonoscopy [Z12.11] Family history of colon cancer [Z80.0] Procedures CT COLONOSCOPY FLX DX W/COLLJ SPEC WHEN PFRMD COLONOSCOPY Referral ID Status Reason Start Date Expiration Date Visits Re quested Visits Authorized [id number] 1 1 Encounter Details Date Type Department Care Team (Late st Contact Info) Description 07/18/2024 Hospital Encounter [facility] [address] [place] [address] Jamel Jacobsen, DO 4 [facility] [address] [address] Social History Tobacco Use Types Packs/Day Years [...] on file 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 Question Answer Date of Assessment Author Have you ever felt the need to Cut down on your drinking? 0 11/05/2024 5:20 AM Guerda Chinchilla RN Have people ever Annoyed yo u by criticizing your drinking? 0 11/05/2024 5:20 AM CAMT Guerda Chang RN Have you ever felt bad or Guilty about your drinking? 0 11/05/2024 5:20 AM Guerda Chinchilla RN Have you ever had a drink first thing in the morning to steady your nerves or get rid of a hangover? Eye title officer? 0 11/05/2024 5:20 AM Guerda Chinchilla RN CAGE SCORE: 2 or Greater = Positive 0 11/05/2024 5:20 AM Guerda Chinchilla RN * In the past year, patient experienced: Question Answer Date of Assessment Author One or more falls in the last year 0 2024 7:59 AM CDT Oanh Cruz MA * Difference in Last Two Antonino Scores Answer Date of Assessment Author 0 11/16/2024 8:00 AM CDChristen Garza RN * Hilaria Fall Risk Question Answer Date of Assessment Author History of Falling 25 11/16/2024 8:00 AM Lulu Parker RN Secondary Diagnosis 15 11/16/2024 8:00 AM Lulu Rodriguez RN Ambulatory Aids 15 11/16/2024 8:00 AM Lulu Hall RN Intravenous Therapy/Heparin/Saline Lock 20 11/16/2024 8:00 AM Christen Parker RN Gait/Transferring 10 11/16/2024 8:00 AM Lulu Parker RN Mental Status 0 11/16/2024 8:00 AM Lulu Parker RN Manrique Fall Risk Score (Score >= 45 places fall precaution order) 85 11/16/2024 8:00 AM Lulu Parker RN Prior Fall Event (Autopopula mere from EMR) None found 11/16/2024 8:00 AM Lulu Parker R N * Antonino Scale Question Answer Date of Assessment Author Sensory Perceptions 4 11/16/2024 8:00 AM Lulu Rodriguez RN Moisture 4 11/16/2024 8:00 AM Lulu Parker RN Activity 3 11/16/2024 8:00 AM Lulu Parker RN Mobility 3 11/16/2024 8:00 AM Lulu Parker RN Nutrition 3 11/16/2024 8:00 AM Lulu Parker RN Friction and Shear 3 11/16/2024 8:00 AM Lulu Parker RN Antonino Scale Score 20 11/16/2024 8:00 AM Lulu Parker RN * BP Location Answer Date of Assessment Author Left arm 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 Cruz MA * Question Answer Date of Assessment Author BP Method Automatic 11/15/2024 4:06 PM CAMT Zachery Lino MAP (mmHg) 86 11/16/2024 8:00 AM CDT Kait Nolan * Fall Risk Interventions Question Answer Date of Assessment Author All Low Fall Interventions Applied Yes 11/16/2024 8:00 AM Lulu Parker RN All Moderate Fall Interventions Applied Yes 11/16/2024 8:00 AM Lulu Parker RN All High Fall Risk Interventions Applied No 11/16/2024 8:00 AM Lulu Parker RN All High Risk Interventions EXCEPT: Collaborate with family 11/16/2024 8:00 AM Lulu Parker RN Additional Interventions Applied Bed/chair alarm;Bedside commode;Over-bed table on non-exit side;Exit bed on strong/preferred side 11/16/2024 8:00 AM Lulu Parker RN Reason For Exception(s) no fam present 11/17/19 8:00 AM Lulu Parker RN * B.M.A.T. - Bedside Mobility Assessment Tool for Nurses Question Answer Date of Assessment Author Is patient able to participate in the BMAT? Yes 11/16/2024 8:00 AM Lulu Parker RN Reason patient is unable to participate in BMAT Bed rest orders 11/08/2024 8:10 PM Osbaldo Dewey RN BMAT Level Level 3 - Yellow 11/16/2024 8:00 AM Lulu Parker RN Level 2 Equipment Use total lift for patient unable to weight-bear on at least one leg 11/08/2024 8:10 PM Osbaldo Dewey RN Level 3 Equipment Use assistive device such as cane/walker 11/16/2024 8:00 AM Lulu Parker RN * Question Answer Date of Assessment Author 1. Has the patient self-reported, presented with clinical signs of, or have a documented history of any of the following within the past 30 days? No 11/05/2024 6:06 AM Bryan Roque RN * Question Answer Date of Assessment Author Is the patient being treated today because it is known or suspected that they prepared, started, or tried to end their life? No 11/05/2024 6:06 AM Bryan Roque RN * Question Answer Date of Assessment Author 1. In the past month, have y ou wished you were or that you could go to sleep and not wake up? No 11/05/2024 6:06 AM CAMT Bryan Hopkins RN 2. In the past month, have y ou actually had any thoughts of killing yourself? No 11/05/2024 6:06 AM CAMT Bryan Hopkins RN 6. Have you ever done anythi ng, started to do anything, or prepared to do anything to end your life? No 11/05/2024 6:06 AM Bryan Roque RN * Suicide Risk Level Answer Date of Assessment Author No risk level 11/05/2024 6:06 AM CAMT Bryan Hopkins RN * Self-Injurious Risk Level Answer Date of Assessment Author No risk level 11/05/2024 6:06 AM CAMT Bryan Hopkins RN * Alcohol Withdrawal Question Answer Date of Assessment Author Alcohol Withdrawal BP Hierarchy 63 11:35 AM CDT Jerrod Frost RN Tremor 1 11/11/2024 11:35 AM CDT Jerrod Read RN Sweating 0 11/11/2024 11:35 AM CDT Jerrod Read RN Hallucinations 0 11/11/2024 11:35 AM CDT Jerrod Padron RN Orientation 0 11/11/2024 11:35 AM CDT Jerrod Read RN Contact 0 11/11/2024 11:35 AM CDT Jerrod Read RN Agitation 0 11/11/2024 11:35 AM CDT Jerrod Read RN * Total Question Answer Date of Assessment Author Total 2 11/11/2024 11:35 AM Jerrod Chopra RN * Pressure Injury Prevention Question Answer Date of Assessment Author Pressure Ulcer Prevention Interventions Keep skin clean and dry (Sensory Perception/Moisture);C hange pads/diapers as soon as soiling is noted (Moisture);Fasten diapers only when out of bed (Moisture);Reposition at regular intervals while in the chair (Activity);Use pillows/wedge for positioning (Activity/Mobility);Us e draw sheet when pulling patient up in bed (Friction & Shear) 11/16/2024 8:00 AM CDT Lulu Guzmán RN 2 Nurse Skin Assessment osbaldo/Melody DAVILA 04/2024 8:10 PM CAMT Osbaldo Mack RN Special Mattress Alternating pressure relief 11/15/2024 8:35 PM CAMT Nataly Navarro RN * Transdermal Patch Admission Assessment Question Answer Date of Assessment Author Transdermal Patch Assessment on Admission Not Present 11/05/2024 6:06 AM CAMT Bryan Hopkins RN * AUDIT-C Score Answer Date of Assessment Author 6 11/07/2024 6:06 AM CAMT Bess English RN * Alcohol Use Question Answer Date of Assessment Author Q1: How often do you have a drink containing alcohol? 2-3 times a week 11/07/2024 6:06 AM Bess Holder RN Q2: How many drinks containing alcohol do you have on a typical day when you are drinking? 3 or 4 11/07/2024 6:06 AM Nichole Holder RN Q3: How often do you have six or more drinks on one occasion? Monthly 11/07/2024 6:06 AM Bess Holder RN * Fall Risk Assessment Tool - MEDFRAT Question Answer Date of Assessment Author Prior Fall Event (Autopopulated from EMR) None found 11/04/2024 11:05 PM Joe Chinchilla RN History of falling in last 3 months, including since admission 1 11/04/2024 11:05 PM Adelaida Chinchilla RN Confusion or disorientation 0 11/04/2024 11 :05 PM Guerda Chinchilla RN Intoxicated or sedated 3 11/04/2024 11:05 P M Guerda Chinchilla RN Impaired gait 0 11/04/2024 11:05 PM Guerda Mckeon RN Mobility assist device used 0 11/04/2024 11 :05 PM Guerda Chinchilla RN Altered elimination 0 11/04/2024 11:05 PM C Guerda Jacob RN Fall risk score: (1-2 low risk), (3-4 moderate risk), (5 or more high risk) 4 11/04/2024 11:05 PM CAMT Frederick Chang RN * Fall Interventions Question Answer Date of Assessment Author Interventions MODERATE Risk patient/family education;call light in reach;bed low/locked 11/04/2024 11:06 PM CAMT Guerda Chang RN * Integumentary Question Answer Date of Assessment Author Skin Color Appropriate for ethnicity 11/16/2024 8:00 AM Lulu Parker RN Skin Condition/Temp Warm;Dry 11/16/2024 8 :00 AM Lulu Parker RN Skin Integrity Surgical incision;Tear 8:00 AM Lulu Parker RN Skin Turgor Non-tenting 11/16/2024 8:00 AM Lulu Parker RN Integumentary Additional Assessments Yes-Antonino 11/16/2024 8:00 AM Lulu Parker RN Integumentary (WDL) X 11/16/2024 8 :00 AM Lulu Parker RN Skin Location surgical incision RL E and skin tear LUE 11/16/2024 8:00 AM Lulu Parker RN * Question Answer Date of Assessment Author RLE Edema No pitting 11/16/2024 8:00 AM Lulu Parker RN Edema Right lower extremity 11/16/2024 8:00 AM Lulu Parker RN * Question Answer Date of Assessment Author Percent Meal Eaten (%) 75 11/14/2024 2:00 PM Sekou Hayes RN Feeding Level of Assistance Able to feed self 11/14/2024 2:00 PM Sekou Hayes RN Appetite Good 11/14/2024 2:00 PM Sekou Shearer RN Percent Snack Eaten (%) 0 11/14/2024 2:00 P M Sekou Hayes RN Diet Supplement Name/Percent Consumed % 0 11/16/2024 11:00 AM Debbie Parker RN * BP Location Answer Date of Assessment Author Left arm 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 Cruz MA * Question Answer Date of Assessment Author BP Method Automatic 11/15/2024 4:06 PM CAMT Zachery Lino * Fall Risk Interventions Question Answer Date of Assessment Author All Low Fall Interventions Applied Yes 11/16/2024 8:00 AM Lulu Parker RN All Moderate Fall Interventions Applied Yes 11/16/2024 8:00 AM Lulu Parker RN All High Fall Risk Interventions Applied No 11/16/2024 8:00 AM Lulu Parker RN All High Risk Interventions EXCEPT: Collaborate with family 11/16/2024 8:00 AM Lulu Parker RN Additional Interventions Applied Bed/chair alarm;Bedside commode;Over-bed table on non-exit side;Exit bed on strong/preferred side 11/16/2024 8:00 AM Lulu Parker RN Reason For Exception(s) no fam present 11/17/19 8:00 AM Lulu Parker RN * ADL Screening Question Answer Date of Assessment Author Patient's Vision Adequate to Safely Complete Daily Activities Yes 11/05/2024 6:06 AM Bryan Roque RN Patient's Judgement Adequate to Safely Complete Daily Activities Yes 11/05/2024 6:06 AM Bryan Roque RN Patient's Memory Adequate to Safely Complete Daily Activities Yes 11/05/2024 6:06 AM Bryan Roque RN Patient Able to Express Needs/Desires Yes 11/05/2024 6:06 AM Bryan Roque RN Dressing Independent 11/05/2024 6:06 AM Bryan Sandoval RN Grooming Independent 11/05/2024 6:06 AM Bryan Sandoval RN Feeding Independent 11/05/2024 6:06 AM Bryan Sandoval RN Bathing Independent 11/05/2024 6:06 AM Bryan Sandoval RN Toileting Independent 11/05/2024 6:06 AM Bryan Sandoval RN In/Out Bed Independent 11/05/2024 6:06 AM Bryan Sandoval RN Walks in Home Independent 11/05/2024 6:06 AM Bryan Martinez RN Weakness of Legs None 11/05/2024 6:06 AM Bryan Shultz RN Weakness of Arms/Hands None 11/05/2024 6:06 AM Bryan Roque RN Hearing - Right Ear Functional 11/05/2024 6:06 AM Bryan Kauffman RN Hearing - Left Ear Functional 11/05/2024 6:06 AM Bryan Roque RN Dominant hand? Right 11/05/2024 6:06 AM Bryan Sainz RN Decline in ADLs in last 2 weeks? No 11/05/2024 6:06 AM Bryan Roque RN * Therapy Consults Question Answer Date of Assessment Author PT Evaluation Needed 1 11/05/2024 6:09 AM Bryan Granger RN OT Evaluation Needed 1 11/05/2024 6:09 AM Bryan Granger RN OUTSIDE SALES ASSOCIATE Evaluation Needed 2 11/05/2024 6:09 AM Bryan Roque RN * Assistive Devices Question Answer Date of Assessment Author Assistive Devices/DME Eyeglasses 11/05/2024 6:06 AM Bryan Roque RN * Speech/Swallow Screening Question Answer Date of Assessment Author Currently, does patient have difficulty swallowing; coughing/choking while swallowing, or feels like food is sticking No 11/05/2024 6:06 AM Judith Roque RN In the past two weeks has the patient had changes in speaking or ability to comprehend conversation No 11/05/2024 6:06 AM Bryan Roque RN Currently, does patient require thickened liquids or dysphagia diet No 11/05/2024 6:06 AM Bryan Roque RN Patient is in need of OUTSIDE SALES ASSOCIATE Order: No OUTSIDE SALES ASSOCIATE order needed from this assessment 11/05/2024 6:06 AM CDT Bryan Hopkins RN * Hygiene Question Answer Date of Assessment Author Hygiene Back rub;Hair washed 11/14/2024 10:15 AM CDT Becky Hidalgo Oral Care Teeth brushed 11/16/2024 8:03 AM CDT Kait Nolan Hygiene Level of Assistance Moderate assist 11/15/2024 9:00 AM CDT Zachery Lino Toileting: Assistance with Bedside commode 11/15/2024 8:15 AM CDT Lulu Guzmán RN Toileting: Level of assistance Moderate 11/15/2024 8:15 AM CDT Lulu Guzmán RN Reason not bathed/showered Bath not due on this shift 11/09/2024 10:56 AM CDT Shilpa Craft Perineal Care Ilene Care 11/14/2024 3:04 PM CDT Sekou Mendoza RN Linens Complete linen change 11/15/2024 9:00 AM CDT Zachery Lino Bath Bathed/showered with chlorhexidine (CHG) 11/15/2024 9:00 AM CDT Zachery Lino documented as of this encounter Mental Status * Question Answer Entry Date Author Level of Consciousness Alert;Awake 8:00 AM CAMT Lulu Guzmán RN Orientation Oriented X4 (person, place, time, situation) 11/16/2024 8:00 AM CAMT Lulu Guzmán RN Neuro (WDL) X 11/16/2024 8:00 AM CDT Lulu Guzmán RN Other Neuro Symptoms Fatigue 11/16/2024 8:00 AM CDT Lulu Guzmán RN * Short Blessed Test Question Answer Entry Date Author What year is it now? 0 11/09/2024 8:20 AM CDT Edyta Correa OT What month is it now? 0 11/09/2024 8:20 AM CDT Edyta Correa OT Without looking at the clock, tell me what time it is 0 11/09/2024 8:20 AM CDT Edyta Correa OT Count aloud backwards from 20-1 0 11/09/2024 8:20 AM CDT Edyta Correa OT Say the months of the year backwards in reverse order 0 11/09/2024 8:20 AM Edyta Barker OT Repeat the name and address I asked you to remember 4 11/09/2024 8:20 AM Edyta Barker OT Repeat this name and address after me Gadiel Victor [address] [place] [address] 11/09/2024 8:20 AM CDT Edyta Correa OT Short Blessed Total Score 4 11/09/2024 8:20 AM CDT Edyta Correa OT documented in this encounter Plan of Treatment Not on file documented as of this encounter Visit Diagnoses Diagnosis History of colonic polyps Personal history of colonic polyps Family history of colon cancer Family history of malignant neoplasm of gastrointestinal tract documented in this encounter Admitting Diagnoses Diagnosis History of colonic polyps Personal history of colonic polyps Encounter for screening colonoscopy Family history of colon cancer Family history of malignant neoplasm of gastrointestinal tract documented in this encounter Care Teams Manager Commodities Relationship Specialty Start Date End Date Biju Starkey MD [address] [facility] [address] [place] [address] PCP - General Family Medicine 12/30/23 Te Hudson MD 4 [facility] [address] [facility] [place] [address] Consulting Physician Neurology 12/10/22 Facudno Garcia MD [address] [facility] [address] [place] [address] Consulting Physician Nephrology 12/30/23 Holden Vargas MD [phone] [place] [address] Consulting Physician Plastic Surgery 12/30/23 documented as of this encounter
--- NOTE | 2025-03-07 11:59 | P.SLEEP_ITS ---
Sleep Study Date of Study: 02/11/25 Ordering Provider: Bjiu Starkey, Interpreting Physician: Bernie Cervantes MD Sleep Study Type: Split Polysomnogram Height: 1.71 m Weight: 67.585 kg Body Mass Index: 23.0 Neck Circumference (inches): 13 Lewis: 7 Sleep History Maida López is a 69-year-old woman with poor sleep. She[ ]awakens from sleep short of breath. She[ ] wakes at night with heartburn, belching or coughing.??She[ ] snores,[ ] snores loudly enough that others complain. She[ ] has trouble sleeping when she has a cold. She[ ] wakes up gasping for breath during the night. She[ ] has breathing problems at night. She[ ] sweats excessively at night. She[ ] notices her heart pounding or beating irregularly during the night. She[ ]falls asleep during the day. She[ ] falls asleep involuntarily,[ ] falls asleep while driving. She[ ] experiences loss of muscle tone with strong emotion. She[ ] feels paralyzed on waking or falling asleep. She[] experiences vivid dreams upon waking or falling asleep. She[ ] feels afraid of going to sleep. She[ ] has nightmares. She[ ] recalls her dreams. She[] has thoughts racing through her mind. She[ ] feels sad or depressed. She[ ] feels anxiety. She[ ] notices parts of her body jerk. She[ ] kicks during the night. She[ ] feels crawling or aching feelings in her legs. She[] feels leg pain at night. She[ ] has morning jaw pain, and [] grinds her teeth at night. She[ ] feels bothered by pain during the day, is[ ] awakened by pain during the night. She[ ] wakes up feeling stiff in the morning, [] wakes feeling sore or achy in the morning. She[] awakens with pain in her neck, spine, or joints. Normal bedtime is[ ], falling asleep[], waking[] times at night. She wakes at [], reports getting [] hours of sleep per night. Habits:??Tobacco:[ ] Caffeine:[ ]. Alcohol:[ ] Recreational substances: none PMFSH Past Medical History Medical History Encounter for postoperative care Nicotine dependence PVD (peripheral vascular disease) Hyperlipidemia Alcoholism Fracture of hip, right, closed Surgical History Surgical History History of neck surgery History of H/O carotid endarterectomy Family History Family History Other Family history of high cholesterol Heart disease History of aneurysm Social History Social History Smoking packs per day: 1 Smoking cigarettes per day: 20.0 Years smoked: 23 Smoking pack-years: 23.00 Smoking status: Current every day smoker Tobacco type: cigarettes Second hand tobacco smoke exposure: Yes Alcohol intake: current Drinks per week: 49 Alcohol use details: 07/16/22 - PT STATES 8 BEERS/WEEK VIA PHONE INTERVIEW Substance use: never Substance use type: does not use Living arrangements: with family Occupation/Education: occupation Additional occupation/education comments: [employer] Gender identity (if verbalized by the patient): Female Sexual Orientation (if Verbalized by the Patient): Straight or Heterosexual Spiritual care concerns: No Medications Home Medications ?Medication ?Instructions ?Recorded ?Confirmed ?Type multivitamin (Multiple Vitamins 1 tablet PO DAILY 11/2909/16/24 History tablet) diphenhydramine HCl 25 mg tablet 25 mg PO TID PRN Rolando estion 07/16/22 09/16/24 History (Benadryl Allergy) oxycodone-acetaminophen 5 mg-325 1 tablet PO Q6H PRN p ain #30 tabs 07/18/22 09/16/24 Rx mg tablet (Percocet) Sleep Procedure A split night polysomnogram using the Le[employer]oo multi-channel system recorded the standard physiologic parameters including EEG, EOG, submentalis EMG, anterior tibialis EMG, EKG, body position, nasal and oral airflow using nasal pressure sensor and thermistor. Respiratory parameters of chest and abdominal movements were recorded with Respiratory Inductance Plethysmography belts. Oxygen saturation was recorded by pulse oximetry. Video monitoring was also performed. Sleep stages, periodic limb movements, and EEG arousals were scored in 30 second epochs according to the criteria of the AASM Scoring Manual. The Apnea-Hypopnea Index was calculated using CMS guidelines for definition of hypopnea while scoring respiratory events. The patient sleeps in a recliner at home. After the baseline portion the patient met criteria for a titration with an AHI of [] and desaturation to []. She chose to use a medium García and [employer]kel Solo nasal pillows, then changed to a medium ResMed AirFit N20 nasal mask, was titrated at a starting pressure of 6 cm, increased to 7 cm with 2 EPR, CPAP 8 with 2 EPR, CPAP 9 with 2 EPR, final pressure was CPAP 10 cm with 2 cm EPR. Sleep Architecture During the diagnostic portion of the study, the total recording time was 175.6 minutes. The total sleep time was 133.0 minutes. Sleep latency was 5.6 minutes. There was no REM on the baseline. Sleep Efficiency was 75.7%. The patient had 11 awakenings for an awakening index of 5.0. Wake after sleep onset time was 37.0 minutes. The patient spent 36.0 minutes, 27.1% of total sleep time in Stage N1. The patient spent 97.0 minutes, 72.9% in Stage N2. The patient spent no time in Stage N3 or Stage REM sleep. At 12:08:06 AM the patient was placed on PAP treatment. During the treatment portion of the study, the total recording time was 302.2 minutes. The total sleep time was 273.5 minutes. Sleep latency was 1.5 minutes. REM latency was 53.5 minutes. Sleep Efficiency was 90.5%. Wake after Sleep Onset time was 27.0 minutes. The patient spent 27.0 minutes, 9.9% of total sleep time in Stage N1. The patient spent 123.5 minutes, 45.2% in Stage N2. The patient spent 59.5 minutes, 21.8% in Stage N3. The patient spent 63.5 minutes, 23.2% in Stage REM. Respiratory Analysis During the diagnostic portion of the study, the patient had 41 hypopneas, 5 obstructive apneas, no mixed apneas, and no central apneas for an overall Apnea Hypopnea Index of 20.8 events per hour. The REM Apnea Hypopnea Index was 0. The NREM Apnea Hypopnea Index was 20.8. The patient had a Central Apnea Hypopnea Index of 0. There were no Respiratory Effort Related Arousals. The Respiratory Disturbance Index is 24.4 events per hour. There was no evidence of Lacho- Maki Respirations. During the treatment portion of the study, the patient had 1 hypopneas, no obstructive apneas, no mixed apneas, and 2 central apneas for an overall Apnea Hypopnea Index of 0.7 events per hour. The REM Apnea Hypopnea Index was 0. The NREM Apnea Hypopnea Index was 0.9. The patient had a Central Apnea Hypopnea Ind ex of 0.4. There wereno Respiratory Effort Related Arousals. The Respiratory Disturbance Index is 1.1 events per hour. There was no evidence of Lacho-Maki Respirations. Arousals During the diagnostic portion of the study, there were a total of 118 arousals for an arousal index of 53.2. There were 64 respiratory arousals for an index of 28.9. There were 25 periodic limb movement arousals for an index of 11.3. There were 13 isolated limb movement arousals for an index of 5.9. There were 16 spontaneous arousals for an index of 7.2. During the treatment portion of the study, there were a total of 141 arousals for an index of 30.9. There were 18 respiratory arousals for an index of 3.9. There were 62 periodic limb movement arousals for an index of 13.6. There were 31 isolated limb movement arousals for an index of 6.8. There were 30 spontaneous arousals for an index of 6.6. Periodic Limb Movements During the diagnostic portion of the study, the patient had 30 isolated limb movements with an index of 13.5. The patient had 51 periodic limb movements with an index of 23.0. The patient had a total of 81 limb movements with a total limb movement index of 36.5. During the treatment portion of the study, the patient had 56 isolated limb movements with an index of 12.3. The patient had 103 periodic limb movements with an index of 22.6. The patient had a total of 159 limb movements with a total limb movement index of 34.9. Oximetry Data During the diagnostic portion of the study, the patient had an average oxygen saturation of - in wake with a minimum oxygen saturation of - and a maximum oxygen saturation of -. The patient had an average oxygen saturation of 91.8% in sleep with a minimum oxygen saturation of 68% and a maximum oxygen saturation of 98%. The patient had 68 oxygen desaturations resulting in an Oxygen Desatu ration Index of 30.7. The patient spent [min] minutes, [%] of total sleep time with an oxygen saturation less than 88%. During the treatment portion of the study, the patient had an average oxygen sa turation of 93.0% in wake with a minimum oxygen saturation of 90.0% and a maximum oxygen saturation of 96.0%. The patient had an average oxygen saturation of 92.0% in sleep with a minimum oxygen saturation of 89.0% and a maximum oxygen saturation of 95.0%. The patient had 4 oxygen desaturations resulting in an Oxygen Desaturation Index of 0.9. The patient spent [min] minutes, [%] of total sleep time with an oxygen saturation less than 88%. Snoring Profile During the diagnostic portion, snoring was moderate, resolved during the titration. Cardiac Profile During the diagnostic portion of the study, the EKG showed normal sinus rhythm. The average pulse rate was 78 bpm. The minimum pulse rate was 68 bpm. The maximum pulse rate was 99 bpm.No arrhythmias noted. During the treatment portion of the study, the EKG showed normal sinus rhythm. The average pulse rate was 76 bpm. The minimum pulse rate was 62 bpm. The maximum pulse rate was 90 bpm. No arrhythmias noted. EEG Profile Unremarkable, no evidence of seizures. Assessment and Plan Assessment and Plan (1) Obstructive sleep apnea: Code(s): G47.33 - Obstructive sleep apnea (adult) (pediatric) Status: Acute Assessment and Plan: This split night sleep study Feb 11 showed moderate obstructive sleep apnea, apnea hypopnea index 20.8 with desaturation to 68%, successfully treated using a medium ResMed AirFit N20 nasal mask and CPAP 10 cm with 2 cm EPR. The p atient should be prescribed this ResMed equipment as well as tubing, filters and reservoir. This should be used with all episodes of sleep. Compliance should be reviewed within 31-90 days of starting therapy for usage greater than 4 hours per night greater than 70% of the nights. The patient should be asked about symptoms such as excessive daytime sleepiness, quality of sleep, decreased nocturia, increased mental functioning such as memory, mood, and concentration. At the final pressure of 10 cm with 2 EPR, the patietn spent Data The data obtained during this sleep study is adequate for interpretation. Certification This sleep study has been reviewed by a board certified sleep medicine physician.
[2025-03-07 12:00] VITALS: BMI 23.0
== END 2025-02-12 07:09 | disposition home or self-care (01) ==
PROVIDERS: PCP Family Medicine; Visit Provider Family Medicine
DX: G47.33 Obstructive sleep apnea (adult) (pediatric) (principal)
CPT/HCPCS: 95811